=== PATIENT | male | born 1945 | race Caucasian/White ===

== ENCOUNTER 2016-03-25 11:25 | Day surgery (SDC) | payer MEDICARE ==
[2016-03-24 09:27] VITALS: BMI 31.8
[~2016-03-25 11:25] MED LIST: DEXAMETHASONE SOD PHOSPHATE 10 MG/ML 1 ML VIAL IV ONE; LIDOCAINE 1% 20 ML VIAL (10MG/ML) FOR IV START INTRADERMA PRN; MIDAZOLAM 2 MG/2 ML VIAL IV PRN; ONDANSETRON 4 MG/2 ML VIAL IVP ONE; SCOPOLAMINE 1.5MG/72HR PATCH TRANSDERM ONE
[2016-03-25] MEDS: PHENYLEPHRINE 10% OPHTH DROPS 5 ML BTL OP ONE ×3 (12:24→12:40)
[2016-03-25] MEDS ORDERED: LIDOCAINE 1% 20 ML VIAL (10MG/ML) FOR IV START INTRADERMA ONE (12:25)
[2016-03-25] MEDS: LACTATED RINGERS 1,000 ML IV ONE ×2 (12:25→12:50)
[2016-03-25] MEDS: CYCLOPENTOLATE 1% OPHTH SOLN 2 ML BTL OP ONE ×3 (12:27→12:42)
[2016-03-25] MEDS: FLURBIPROFEN 0.03% OPHTH DROPS 2.5 ML BTL OP ONE ×3 (12:29→12:44)
[2016-03-25 12:30] VITALS: TEMP 96.8
[2016-03-25 12:31] LABS: Glucose,Whole Blood 159 mg/dL (75-99)
[2016-03-25] MEDS ORDERED: PROPOFOL 10 MG/ML 20 ML VIAL IV ONE (12:53)
[2016-03-25] MEDS ORDERED: LIDOCAINE 1% INJ 10MG/ML (20 ML MDV) ONE (12:53)
[2016-03-25] MEDS ORDERED: BALANCED SALT IRRIG SOLN COMB2 15 ML IRRIG.SOLN INTRAOCULA ONE (13:00)
[2016-03-25] MEDS ORDERED: HYALURONATE SODIUM INTRAOCULAR 1 EACH SYRINGE (10MG/ML) INTRAOCULA ONE (13:01)
--- NOTE | 2016-03-25 13:14 | P.OP ---
Date of Procedure: 03/25/16 Procedure(s) Performed: PREOPERATIVE DIAGNOSIS: Cataract, right eye. POSTOPERATIVE DIAGNOSIS: Cataract, right eye. OPERATION: Phacoemulsification cataract, right eye. DESCRIPTION OF PROCEDURE: The patient was taken to the preoperative holding area. Intravenous Propofol was given so as to bring about adequate sedation. The following mixture was given for local anesthesia: 5 mL of 2% lidocaine, 5 mL of 0.75% Marcaine, and 1 mL of Wydase. Approximately 4 mL was injected in the retrobulbar space of the surgical eye. Additional 1 mL was then directed to the temporal area of the surgical eye. This was performed to allow adequate neurological block of the facial muscles. The patient was revived and then taken into the operative room. The patient was prepped and draped in the usual sterile manner for the operative eye. A lid speculum was put into position. The conjunctiva was resected back from the limbus in the 12 o'clock position. Bleeding was controlled with electrocautery. A #69 blade was then used and a half-thickness scleral incision approximately 1-mm posterior to the limbus was made on bare sclera. This was shelved in the clear cornea using a crescent knife. Next a 15-degree blade was used to make a stab incision at the 3 o' clock position at the corneolimbal interface. Keratome blade was then used and the superior wound was extended into the anterior chamber. Viscoelastic was injected into the anterior chamber and to maintain its form. Next, a cystotome was used and a continuous anterior capsulotomy was made without difficulty. Hydrodissection using a blunt cannula and BSS was performed. Phaco probe was then employed and a groove extending from 12 to 6 o'clock in the lens was created. A Armando wand was used through the stab incision so as to perform a divide and conquer technique. Next an irrigation aspiration probe was utilized and any residual cortex was removed from the eye. Again, viscoelastic was injected into the anterior chamber. An Ellis posterior chamber lens implant was placed in the cartridge and injected into the anterior chamber without difficulty. The SinArte Manifiestoey hook was utilized to spin the lens into position and this was again performed without any difficulty. The irrigation and aspiration probe was again employed and any residual viscoelastic was removed from the eye. Then BSS was injected into the limbal stab incision and the anterior chamber re-inflated. The conjunctiva was reapproximated using electrocautery. One drop of 0.25% Timoptic was placed over the corneal along with TobraDex ophthalmic ointment. Two sterile patches and a Valdez eye shield were taped into position. The patient was transported to the recovery room in stable condition. Pathology: none sent Condition: stable Disposition: same day
[2016-03-25 13:20] VITALS: BP 132/76; PULSE 72; RESP 16
[2016-03-25] MEDS ORDERED: GENTAMICIN/PREDNISOL AC OPHTH OINT 3.5GM OPHTHALMIC ONE (23:00)
[2016-03-25] MEDS ORDERED: BUPIVACAINE (PF) 0.75% 5 ML, LIDOCAINE 4% (PF) 5 ML, HYALURONIDASE, HUMAN RECOMB 150 UNIT MISCELLANE ONE ×3 (23:00)
[2016-03-25] MEDS ORDERED: TIMOLOL 0.5% OPHTH SOLN (PF) 0.2 ML DROPERETTE OP ONE (23:00)
== END 2016-03-25 13:50 | disposition home or self-care (01) ==
LOC: OR 11:25
PROVIDERS: ATTEND Ophthalmology
DX: H26.9 Unspecified cataract (principal); I10 Essential (primary) hypertension; E78.00 Pure hypercholesterolemia, unspecified; E11.9 Type 2 diabetes mellitus without complications; Z86.73 Personal history of transient ischemic attack (TIA), and cerebral infarction without residual deficits; Z79.899 Other long term (current) drug therapy; Z79.84 Long term (current) use of oral hypoglycemic drugs
CPT/HCPCS: 66984; V2632; J2001 ×2; J3470; J2704; 99152; 99153

== ENCOUNTER 2017-06-17 11:53 | Inpatient (IN) | payer MEDICARE ==
--- NOTE | 2017-06-17 12:32 | ED ---
General Adult HPI - General Chief complaint: Neuro Symptoms/Deficit Stated complaint: Dizziness/Slurred Speach Time Seen by Provider: 06/17/17 12:10 Source: patient, RN notes reviewed Mode of arrival: ambulatory Limitations: no limitations - History of Present Illness Initial comments: 72-year-old male presenting with slurred speech. Patient first noticed this on Thursday morning when he woke. This was 2 days prior to evaluation. He states that he had difficulty finding words and some left-sided facial weakness. No extremity weakness. He was urged by his daughter today to present to the emergency department. His symptoms have improved over the past 48 hours. Denies headache. Denies vision changes. Denies chest pain or shortness of breath. - Related Data Home Medications Medication Instructions Recorded Confirmed Potassium 99 mg PO DAILY 11/16/15 06/17/17 Zinc 15 mg PO DAILY 01/01/17 06/17/17 guaiFENesin-DM 600/30MG [Mucinex 1 tab PO Q12HR PRN 06/17/17 06/17/17 Dm] Allergies Allergy/AdvReac Type Severity Reaction Status Date / Time codeine Allergy Anaphylaxis Verified 06/17/17 12:22 diphenhydramine HCl Allergy MEMORY Verified 06/17/17 12:22 [From Benadryl] LOSS, RAPID HEART RATE, ELEVATED BLOOD PRESSURE iodine Allergy Unknown-YEARS Verified 06/17/17 12:22 AGO " morphine Allergy BURNING Verified 06/17/17 12:22 FEELING OF SKIN" tetracycline Allergy Hallucinations,rapid Verified 06/17/17 12:22 heart rate Review of Systems ROS Statement: Those systems with pertinent positive or pertinent negative responses have been documented in the HPI. ROS Other: All systems not noted in ROS Statement are negative. Past Medical History Past Medical History: Diabetes Mellitus, Hyperlipidemia, Hypertension, Osteoarthritis (OA), Pneumonia, Prostate Disorder Additional Past Medical History / Comment(s): bells palsy x 2, "HAS A WIRE IN HIS NOSE TO HELP KEEP AIR PASSAGE OPEN" ," CONTROLS HIS DIABETES WITH DIET" History of Any Multi-Drug Resistant Organisms: None Reported Past Surgical History: Appendectomy, Back Surgery, Joint Replacement, Orthopedic Surgery, Tonsillectomy Additional Past Surgical History / Comment(s): AMBUTATION OF SECOND TOE LEFT FOOT. jey knee replacements. sx to repair septum R/T CRUSHING INJURY and HAS "A WIRE IN HIS NOSE, THAT IF REMOVED HE CAN'T BREATHE", surgery on jey eye Past Anesthesia/Blood Transfusion Reactions: No Reported Reaction Additional Past Anesthesia/Blood Transfusion Reaction / Comment(s): "EXTREMELY CLAUSTROPHOBIC" Past Psychological History: No Psychological Hx Reported Smoking Status: Former smoker Past Alcohol Use History: Rare Past Drug Use History: None Reported - Past Family History Father Additional Family Medical History / Comment(s): heart problems lost his parents when he was 1 Mother History Unknown: Yes Daughter(s) Family Medical History: Cancer General Exam Limitations: no limitations General appearance: alert, in no apparent distress Head exam: Present: atraumatic, normocephalic Eye exam: Present: normal appearance, EOMI. Absent: PERRL ((O3 millimeters, right pupil 2 mm, both are reactive, patient has had cataract surgery in both eyes) Neck exam: Present: normal inspection. Absent: tenderness, meningismus Respiratory exam: Present: normal lung sounds bilaterally. Absent: respiratory distress Cardiovascular Exam: Present: regular rate, normal rhythm, systolic murmur GI/Abdominal exam: Present: soft. Absent: distended, tenderness, guarding Extremities exam: Present: normal inspection, normal capillary refill. Absent: pedal edema Back exam: Present: normal inspection. Absent: full ROM, tenderness Neurological exam: Present: alert, oriented X3, motor sensory deficit (Mild left -sided facial droop, dysarthria, NIH of 2) Psychiatric exam: Present: normal affect, normal mood Skin exam: Present: warm, dry, intact. Absent: cyanosis, diaphoretic Course Vital Signs 06/17/17 06/17/17 06/17/17 12:03 13:09 14:40 Temperature 97.2 F L Pulse Rate 73 72 69 Respiratory 16 16 16 Rate Blood Pressure 192/91 183/95 182/88 O2 Sat by Pulse 97 92 L 96 Oximetry EKG Findings - EKG Comments: EKG Findings:: EKG, sinus rhythm with occasional PVC, left axis, ventricular rate of 73, MT interval 138, QRS duration 108, QTC 458, no definitive signs of ischemia Medical Decision Making - Medical Decision Making 73-year-old male presenting with 48 hours of dysarthria. Patient is not a TPA candidate given the low NIH and time of presentation. CBC CMP and chest x-ray are all reviewed and within normal limits. CT of the brain does show a medial right basal ganglia low attenuation consistent with infarction. This is new compared to previous imaging. Patient is given aspirin emergency Department he will be admitted for further stroke evaluation. - Lab Data Result diagrams: 06/17/17 13:20 06/17/17 13:20 Lab Results 06/17/17 06/17/17 06/17/17 Range/Units 13:20 13:20 13:20 WBC 8.6 (3.8-10.6) k/uL RBC 5.51 (4.30-5.90) m/uL Hgb 15.8 (13.0-17.5) gm/dL Hct 45.9 (39.0-53.0) % MCV 83.3 (80.0-100.0) fL MCH 28.6 (25.0-35.0) pg MCHC 34.4 (31.0-37.0) g/dL RDW 12.8 (11.5-15.5) % Plt Count 236 (150-450) k/uL Neutrophils % 76 % Lymphocytes % 18 % Monocytes % 4 % Eosinophils % 0 % Basophils % 0 % Neutrophils # 6.5 (1.3-7.7) k/uL Lymphocytes # 1.6 (1.0-4.8) k/uL Monocytes # 0.4 (0-1.0) k/uL Eosinophils # 0.0 (0-0.7) k/uL Basophils # 0.0 (0-0.2) k/uL PT (9.0-12.0) sec INR (<1.2) APTT (22.0-30.0) sec Sodium 135 L (137-145) mmol/L Potassium 4.6 (3.5-5.1) mmol/L Chloride 94 L (98-107) mmol/L Carbon Dioxide 27 (22-30) mmol/L Anion Gap 14 mmol/L BUN 18 (9-20) mg/dL Creatinine 0.86 (0.66-1.25) mg/dL Est GFR (CKD-EPI)AfAm >90 (>60 ml/min/1.73 sqM) Est GFR (CKD-EPI)NonAf 86 (>60 ml/min/1.73 sqM) Glucose 248 H (74-99) mg/dL Calcium 9.5 (8.4-10.2) mg/dL Total Bilirubin 0.6 (0.2-1.3) mg/dL AST 22 (17-59) U/L ALT 25 (21-72) U/L Alkaline Phosphatase 113 (38-126) U/L Total Creatine Kinase 102 (55-170) U/L CK-MB (CK-2) 2.1 (0.0-2.4) ng/mL CK-MB (CK-2) Rel Index 2.1 Troponin I <0.012 (0.000-0.034) ng/mL Total Protein 7.1 (6.3-8.2) g/dL Albumin 4.1 (3.5-5.0) g/dL 06/17/17 Range/Units 13:20 WBC (3.8-10.6) k/uL RBC (4.30-5.90) m/uL Hgb (13.0-17.5) gm/dL Hct (39.0-53.0) % MCV (80.0-100.0) fL MCH (25.0-35.0) pg MCHC (31.0-37.0) g/dL RDW (11.5-15.5) % Plt Count (150-450) k/uL Neutrophils % % Lymphocytes % % Monocytes % % Eosinophils % % Basophils % % Neutrophils # (1.3-7.7) k/uL Lymphocytes # (1.0-4.8) k/uL Monocytes # (0-1.0) k/uL Eosinophils # (0-0.7) k/uL Basophils # (0-0.2) k/uL PT 10.4 (9.0-12.0) sec INR 1.1 (<1.2) APTT 25.0 (22.0-30.0) sec Sodium (137-145) mmol/L Potassium (3.5-5.1) mmol/L Chloride (98-107) mmol/L Carbon Dioxide (22-30) mmol/L Anion Gap mmol/L BUN (9-20) mg/dL Creatinine (0.66-1.25) mg/dL Est GFR (CKD-EPI)AfAm (>60 ml/min/1.73 sqM) Est GFR (CKD-EPI)NonAf (>60 ml/min/1.73 sqM) Glucose (74-99) mg/dL Calcium (8.4-10.2) mg/dL Total Bilirubin (0.2-1.3) mg/dL AST (17-59) U/L ALT (21-72) U/L Alkaline Phosphatase (38-126) U/L Total Creatine Kinase (55-170) U/L CK-MB (CK-2) (0.0-2.4) ng/mL CK-MB (CK-2) Rel Index Troponin I (0.000-0.034) ng/mL Total Protein (6.3-8.2) g/dL Albumin (3.5-5.0) g/dL Critical Care Time Critical Care Time: Yes Total Critical Care Time: 35 Disposition Clinical Impression: CVA (cerebral vascular accident) Disposition: ADMITTED IP TO THIS [facility] Condition: Stable Referrals: Mark Aguillon MD [Primary Care Provider] - 1-2 days Decision to Admit Reason: Admit from EC Decision Date: 06/17/17 Decision Time: 15:20
[2017-06-17 13:36] LABS: Basophils % (A) 0 %; Eosinophils % (A) 0 %; HCT 45.9 % (39.0-53.0); HGB 15.8 gm/dL (13.0-17.5); Lymphocytes # (A) 1.6 k/uL (1.0-4.8); Lymphocytes % (A) 18 %; MCH 28.6 pg (25.0-35.0); MCHC 34.4 g/dL (31.0-37.0); MCV 83.3 fL (80.0-100.0); Mean Platelet Volume 6.8; Monocytes # (A) 0.4 k/uL (0-1.0); Monocytes % (A) 4 %; Neutrophils # (A) 6.5 k/uL (1.3-7.7); Neutrophils % (A) 76 %; Platelet Count 236 k/uL (150-450); RBC 5.51 m/uL (4.30-5.90); RDW 12.8 % (11.5-15.5); WBC 8.6 k/uL (3.8-10.6)
[2017-06-17 13:47] LABS: INR 1.1 (<1.2); Prothrombin Time 10.4 sec (9.0-12.0)
[2017-06-17 13:53] LABS: ALT 25 U/L (21-72); AST 22 U/L (17-59); Albumin 4.1 g/dL (3.5-5.0); Alkaline Phosphatase 113 U/L (38-126); Anion Gap 14 mmol/L; Blood Urea Nitrogen 18 mg/dL (9-20); Calcium 9.5 mg/dL (8.4-10.2); Carbon Dioxide 27 mmol/L (22-30); Chloride 94 mmol/L (98-107); Glucose 248 mg/dL (74-99); Potassium 4.6 mmol/L (3.5-5.1); Sodium 135 mmol/L (137-145); Total Bilirubin 0.6 mg/dL (0.2-1.3); Total Protein 7.1 g/dL (6.3-8.2)
[2017-06-17 13:57] LABS: Creatine Kinase 102 U/L (55-170)
[2017-06-17 14:09] LABS: Creatine Kinase MB 2.1 ng/mL (0.0-2.4); Troponin I <0.012 ng/mL (0.000-0.034)
--- NOTE | 2017-06-17 14:37 | CT ---
EXAMINATION TYPE: CT brain wo con DATE OF EXAM: 06/17/2017 HISTORY: Dizziness and slurred speech. CT DLP: 1204 mGycm. Automated Exposure Control for Dose Reduction was Utilized. TECHNIQUE: CT scan of the head is performed without contrast. COMPARISON: CT brain November 16, 2015. MRI brain November 19, 2015. FINDINGS: There is no acute intracranial hemorrhage or midline shift identified. There is diffuse v entricular and sulcal prominence consistent with diffuse age-related cerebral atrophy. There is low- attenuation in the periventricular white matter consistent with chronic small vessel ischemic change. New vague area of low-attenuation right medial basal ganglia near axial image 25 and coronal image 37 favors interval infarct, acute ischemia felt less likely. The globes are intact and the visualized sinuses are clear. IMPRESSION: No acute intracranial hemorrhage or midline shift. There is moderate diffuse age-relate d cerebral atrophy and chronic small vessel ischemic change redemonstrated. Nonspecific medial right basal ganglia new area of low-attenuation consistent with age indeterminate infarct favored old but n ew from prior CT and MRI. If clinical concern for acute stroke persists further investigation with MRI study may be warranted
--- NOTE | 2017-06-17 14:44 | XR ---
EXAMINATION TYPE: XR chest 2V DATE OF EXAM: 06/17/2017 COMPARISON: Prior chest x-ray 11/16/2015 HISTORY: Altered mental status, dizziness and slurred speech TECHNIQUE: Frontal and lateral views of the chest are obtained. FINDINGS: There is no focal air space opacity, pleural effusion, or pneumothorax seen. The cardiac silhouette size is within normal limits. There is persistent elevation of the right hemidiaphragm, th ere are overlying cardiac leads. Arthropathy noted in the shoulders. The osseous structures are int act. IMPRESSION: No acute cardiopulmonary process.
[2017-06-17] MEDS ORDERED: ASPIRIN 325 MG TAB PO STA (15:16)
[2017-06-17] MEDS: SODIUM CHLORIDE 0.9% 1,000 ML IV SCH (15:50)
[2017-06-17 16:56] LABS: Glucose,Whole Blood 206 mg/dL (75-99)
--- NOTE | 2017-06-17 17:40 | P.HPIM ---
History of Present Illness 72-year-old male came in with comments of slurred speech has been going on for 2 days patient appears to have had posterior basil ganglia stroke in the past. Patient denied any weakness except for generalized weakness. Patient appears to have multiple other medical problems including hypertension and diabetes mellitus previous strokes but patient doesn't take any may and medications except for magnesium. Patient appears to have benign prostatic hypertrophy as well with urinary retention probably a bladder scan. Patient denied any seizure -like activity. CT of the head was done which showed basal ganglia stroke which appears to be the previous one appears to have had in 2016. Patient's and neurology of slurred speech cannot be explained from the basal ganglia stroke. Patient may have had another stroke. Patient was started on aspirin statin lipid panel will be obtained echocardiogram will be obtain carotid Doppler will be obtained. Patient does not have any tingling or numbness R any focal weakness at this time. Patient appears to have a lot of misconceptions regarding diabetic medications and the diabetic diet patient is diabetic diet was stopped because patient's memory was bad and he believed that his medications are making his memory go down because of that reason patient discontinued diabetic medications including other medications patient was hypotensive as well. Patient passes out after he eats sweets as per the family member. Patient believes diabetic diet is making him hypoglycemic loose memory. But there is no evidence of that as he never checked his blood sugars and never documented any hypoglycemia. Review of Systems REVIEW OF SYSTEMS: CONSTITUTIONAL: No fever, no malaise, no fatigue. HEENT: No recent visual problems or hearing problems. Denied any sore throat. CARDIOVASCULAR: No chest pain, orthopnea, PND, no palpitations, no syncope. PULMONARY: No shortness of breath, no cough, no hemoptysis. GASTROINTESTINAL: No diarrhea, no nausea, no vomiting, no abdominal pain. Normoactive bowel sounds. NEUROLOGICAL: As mentioned in HPI HEMATOLOGICAL: Denies any bleeding or petechiae. GENITOURINARY: Denies any burning micturition, frequency, or urgency. MUSCULOSKELETAL/RHEUMATOLOGICAL: Denies any joint pain, swelling, or any muscle pain. ENDOCRINE: Denies any polyuria or polydipsia. The rest of the 14-point review of systems is negative. Past Medical History Past Medical History: Hyperlipidemia, Hypertension, Osteoarthritis (OA), Pneumonia, Prostate Disorder Additional Past Medical History / Comment(s): pt is a adventist-no blood transfusions. bells palsy x 2, "HAS A removeable WIRE clipIN HIS NOSE TO HELP KEEP AIR PASSAGE OPEN-pt stated do not remove" ,pt stated not diabetic has hypoglycemia, diverticlosis,murmu as child,scalette fever as child History of Any Multi-Drug Resistant Organisms: None Reported Past Surgical History: Appendectomy, Back Surgery, Joint Replacement, Orthopedic Surgery, Tonsillectomy Additional Past Surgical History / Comment(s): AMBUTATION OF SECOND TOE LEFT FOOT. jey knee replacements. 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" Smoking Status: Former smoker - Past Family History Father Additional Family Medical History / Comment(s): heart problems Mother History Unknown: Yes Daughter(s) Family Medical History: Cancer Medications and Allergies Home Medications Medication Instructions Recorded Confirmed Type Potassium 99 mg PO DAILY 11/16/15 06/17/17 History Zinc 15 mg PO DAILY 01/01/17 06/17/17 History guaiFENesin-DM 600/30MG [Mucinex 1 tab PO Q12HR PRN 06/17/17 06/17/17 History Dm] Allergies Allergy/AdvReac Type Severity Reaction Status Date / Time codeine Allergy Anaphylaxis Verified 06/17/17 12:22 diphenhydramine HCl Allergy MEMORY Verified 06/17/17 12:22 [From Benadryl] LOSS, RAPID HEART RATE, ELEVATED BLOOD PRESSURE iodine Allergy Unknown-YEARS Verified 06/17/17 12:22 AGO " morphine Allergy BURNING Verified 06/17/17 12:22 FEELING OF SKIN" tetracycline Allergy Hallucinations,rapid Verified 06/17/17 12:22 heart rate Physical Exam Vitals: Vital Signs Temp Pulse Pulse Resp BP BP Pulse Ox 06/17/17 17:09 97.8 F 66 18 168/88 96 06/17/17 15:50 70 16 186/92 96 06/17/17 14:40 69 16 182/88 96 06/17/17 14:00 68 16 166/90 92 L 06/17/17 13:09 72 16 183/95 92 L 06/17/17 12:03 97.2 F L 73 16 192/91 97 Intake and Output 06/17/17 06/17/17 06/17/17 06:59 14:59 22:59 Other: Voiding Method Urinal Weight 97.522 kg PHYSICAL EXAMINATION: GENERAL: The patient is alert and oriented x3, not in any acute distress. Well developed, well nourished. HEENT: Pupils are round and equally reacting to light. EOMI. No scleral icterus. No conjunctival pallor. Normocephalic, atraumatic. No pharyngeal erythema. No thyromegaly. CARDIOVASCULAR: S1 and S2 present. No murmurs, rubs, or gallops. PULMONARY: Chest is clear to auscultation, no wheezing or crackles. ABDOMEN: Soft, nontender, nondistended, normoactive bowel sounds. No palpable organomegaly. MUSCULOSKELETAL: No joint swelling or deformity. EXTREMITIES: No cyanosis, clubbing, or pedal edema. NEUROLOGICAL: Gross neurological examination did not reveal any focal deficits. Patient does have slurred speech SKIN: No rashes. Results CBC & Chem 7: 06/17/17 13:20 06/17/17 13:20 Labs: Abnormal Lab Results - Last 24 Hours (Table) 06/17/17 06/17/17 Range/Units 13:20 16:54 Sodium 135 L (137-145) mmol/L Chloride 94 L (98-107) mmol/L Glucose 248 H (74-99) mg/dL POC Glucose (mg/dL) 206 H (75-99) mg/dL Assessment and Plan Plan: -Possible cerebral vascular accident: Involving left cerebral hemisphere probably thromboembolic in nature. Will do stroke workup as mentioned above patient was started on aspirin and a statin LDL will be obtained a cold carotid Doppler will be obtained CT did show basal ganglia stroke which is probably old doesn't explain the symptoms of slurred speech. Speech therapy and physical therapy occupational therapy will be consulted. -Type 2 diabetes mellitus patient the start taking all his medications because his blood sugars are not that bad now he will obtain hemoglobin A1c probably start with diabetic diet diabetic education there will be consulted because of misconceptions that family and patient has regarding the diabetic diet. -Hypertension not been using any medications will hold off any medications at this point of time need to be restarted on medications depending on his blood pressure eventually -Hyperlipidemia -Benign prostatic hypertrophy patient will be started on tamsulosin
[2017-06-17] MEDS ORDERED: TAMSULOSIN 0.4 MG CAP.ER.24H PO SCH (18:30)
--- NOTE | 2017-06-17 18:55 | US ---
EXAMINATION TYPE: US carotid duplex BILAT DATE OF EXAM: 06/17/2017 COMPARISON: 11/17/2015 CLINICAL HISTORY: Stenosis. Slurred speech and syncope EXAM MEASUREMENTS: RIGHT: Peak Systolic Velocity (PSV) cm/sec ----- Right CCA: 58.0 ----- Right ICA: 68.2 ----- Right ECA: 98.7 ICA/CCA ratio: 1.2 RIGHT: End Diastole cm/sec ----- Right CCA: 10.0 ----- Right ICA: 17.3 ----- Right ECA: 0 LEFT: Peak Systolic Velocity (PSV) cm/sec ----- Left CCA: 79.2 ----- Left ICA: 76.6 ----- Left ECA: 95.1 ICA/CCA ratio: 1.0 LEFT: End Diastole cm/sec ----- Left CCA: 14.4 ----- Left ICA: 21.0 ----- Left ECA: 0 VERTEBRALS (direction of flow): Right Vertebral: Antegrade Left Vertebral: Antegrade Rhythm: Normal Bilateral plaque in bulbs. No significant stenosis seen IMPRESSION: There is antegrade flow in the vertebral arteries. The images in measurements suggest 0- 50% stenosis in both internal carotid arteries and closer to 25% based on the images. No adverse mayfield ge compared to old exam. Criteria for Assigning % of Stenosis / Diameter reduction (Estimation based on the indirect measurements of the internal carotid artery velocities (ICA PSV). 1. Normal (no stenosis)=ICA PSV < 125 cm/s: ratio < 2.0: ICA EDV<40 cm/s. 2. Less than 50% stenosis=ICA PSV < 125 cm/s: ratio < 2.0: ICA EDV<40 cm/s. 3. 50 to 69% stenosis=ICA PSV of 125 to 230 cm/s: ration 2.0 ? 4.0: ICA EDV 40-100 cm/s. 4. Greater than 70% stenosis to near occlusion= ICA PSV > 230 cm/s: ratio > 4.0: ICA EDV > 100 cm/s. 5. Near occlusion= ICA PSV velocities may be low or undetectable: variable ratio and ICA EDV. 6. Total occlusion=unable to detect flow.
[2017-06-17 21:00] LABS: Glucose,Whole Blood 239 mg/dL (75-99)
[2017-06-17] MEDS ORDERED: ATORVASTATIN 40 MG TAB PO SCH (21:00)
[2017-06-18] MEDS: SODIUM CHLORIDE 0.9% 1,000 ML IV SCH ×2 (00:30→14:09)
[2017-06-18 03:03] LABS: Hemoglobin A1C 10.1 % (4.0-6.0)
[2017-06-18 04:44] VITALS: RESP 16
[2017-06-18 06:00] LABS: Glucose,Whole Blood 218 mg/dL (75-99)
[2017-06-18 06:04] LABS: Cholesterol 228 mg/dL (<200); HDL Cholesterol 40 mg/dL (40-60); LDL Cholesterol,Calculated 141 mg/dL (0-99); Triglycerides 233 mg/dL (<150)
--- NOTE | 2017-06-18 06:09 | CONS ---
CONSULTATION DATE OF CONSULTATION: 06/17/2017. CHIEF COMPLAINT: Stroke. HISTORY OF PRESENT ILLNESS: The patient is a pleasant 72-year-old, male, who is being evaluated by the neurology service per the request of Dr. Garza for a stroke. The patient was brought into [facility] Emergency Room with complaints of slurred speech. His family also noticed that he was having facial drooping on the left side. The patient states that his slurred speech began Thursday morning but he did not seek any medical attention because he thought it was a medication side effect. He had been taking some Mucinex for a cough. He denies having any weakness or numbness in his extremities. He does report that over the past couple of days, his balance has not been as good as it used to be when he is walking. A CT scan of the brain was done in the emergency room, which showed hypoattenuation involving the right basal ganglia. This hypoattenuation was age undetermined but it was new when compared to his 2016 CT scan of the brain. The patient was not on any aspirin at home. His carotid Doppler showed no hemodynamically significant stenosis. His CBC, INR, and cardiac enzymes were normal. His comprehensive metabolic profile was normal except for hyperglycemia at 248. At the time of my evaluation, he denies any changes in the intensity of his symptoms. He denies any dysphagia. PAST MEDICAL HISTORY: Dyslipidemia, hypertension, arthritis, benign prostatic hypertrophy, history of appendectomy, spine surgery, joint replacement surgery, tonsillectomy, cataract surgery. SOCIAL HISTORY: The patient is a former smoker. He rarely drinks alcohol. He denied any drug use. FAMILY HISTORY: Positive for heart disease and cancer. HOME MEDICATIONS: Reviewed in the chart. ALLERGIES: CODEINE, BENADRYL, IODINE, MORPHINE, TETRACYCLINE. REVIEW OF SYSTEM: CONSTITUTIONAL: Negative. EYES: Negative. ENT: Negative. CARDIOVASCULAR: Negative. RESPIRATORY: Negative. NEUROLOGICAL: As mentioned above. GASTROINTESTINAL: Negative. GENITOURINARY: Positive for urinary retention due to benign prostatic hypertrophy. PSYCHIATRIC: Negative. ENDOCRINE: Positive for diabetes. DERMATOLOGICAL: Negative. MUSCULOSKELETAL: Positive for occasional joint pain and low back pain. PHYSICAL EXAM: Vital signs show a temperature of 97.8, pulse 68, respirations 16, blood pressure 164/86. GENERAL APPEARANCE: The patient is a well-developed, elderly male, who appears to be in no acute distress. HEENT: Normocephalic, atraumatic. Minimal left facial drooping is seen. Extraocular muscles are intact. Neck is supple with no masses felt. CARDIOVASCULAR: Regular rate and rhythm. ABDOMEN: Nontender, nondistended. Extremities showed no edema or clubbing. NEUROLOGICAL EXAM: The patient is alert, aware and oriented x3. Speech is slightly dysarthric. Language testing is normal. Strength is full in all 4 extremities. No pronator drift is seen. Sensory exam was normal to light touch in all 4 extremities. Cranial nerve testing showed minimal left facial drooping. IMPRESSION: 1. Acute ischemic stroke. 2. Dysarthria. 3. Mild left facial droop. 4. Uncontrolled hypertension. 5. Diabetes. RECOMMENDATION: The patient does appear to have suffered an acute ischemic stroke. His CT scan of the brain did show hypoattenuation of undetermined age. I will order an MRI of the brain with and without contrast. The patient is claustrophobic and I will pretreat him with Ativan. He has been started on aspirin 325 mg daily. He denies any dysphagia. I will order a fasting lipid panel, EEG, and serum homocysteine level. The patient is also being worked up for possible diabetes. A hemoglobin A1c is pending. I do recommend medication for his elevated blood pressure as it was significantly elevated on arrival and continues to be somewhat elevated at this time with the last blood pressure reading of 164/86. Speech Therapy will be consulted. Continue the rest of your current workup and management. I will continue to follow with you. Further recommendations to follow. Thank you for allowing me to participate in the care of your patient. If you have any questions, please feel free to contact me. MMKIRBYL / IJN: [id number] /
[2017-06-18] MEDS ORDERED: ASPIRIN 325 MG TAB PO SCH (09:00)
--- NOTE | 2017-06-18 10:58 | ECHOF ---
Referral Reason:Thrombus MEASUREMENTS -------- HEIGHT: 175.3 cm WEIGHT: 97.1 kg BP: 182/88 IVSd: 1.4 cm (0.6 - 1.1) LVIDd: 3.7 cm (3.9 - 5.3) LVPWd: 1.6 cm (0.6 - 1.1) IVSs: 1.9 cm LVIDs: 3.2 cm LVPWs: 1.8 cm Ao Diam: 3.8 cm (2.0 - 3.7) AV Cusp: 2.3 cm (1.5 - 2.6) LA Diam: 3.4 cm (2.7 - 3.8) MV EXCURSION: 18.221 mm (> 18.000) MV EF SLOPE: 52 mm/s (70 - 150) EPSS: 1.2 cm MV E Chito: 0.60 m/s MV DecT: 211 ms MV A Chito: 0.73 m/s MV E/A Ratio: 0.83 RAP: 5.00 mmHg RVSP: 8.03 mmHg FINDINGS -------- Undetermined rhythm. This was a technically difficult study with suboptimal views. The left ventricular size is normal. There is moderate concentric left ventricular hypertrophy. O verall left ventricular systolic function is mildly impaired with, an EF between 45 - 50 %. ANTEROS EPTAL HYPOKINESIS The right ventricle is normal in size and function. The left atrium is normal in size. The right atrium is normal in size. Lumason used Aortic valve is trileaflet and is mildly thickened. The mitral valve leaflets are mildly thickened. Mild mitral annular calcification present. Mild m itral regurgitation is present. Mild tricuspid regurgitation present. The right ventricular systolic pressure, as measured by Doppl er, is 8.03mmHg. Pulmonic valve appears structurally normal. The aortic root is mildy dilated measuring 3.8 cm. Normal inferior vena cava with normal inspiratory collapse consistent with estimated right atrial pre ssure of 5 mmHg. The pericardium is normal. CONCLUSIONS -------- 1. Undetermined rhythm. 2. This was a technically difficult study with suboptimal views. 3. The left ventricular size is normal. 4. There is moderate concentric left ventricular hypertrophy. 5. Overall left ventricular systolic function is mildly impaired with, an EF between 45 - 50 %. 6. Mid to basal inferiorlateral is hypokinetic 7. The right ventricle is normal in size and function. 8. The left atrium is normal in size. 9. The right atrium is normal in size. 10. Lumason used 11. Aortic valve is trileaflet and is mildly thickened. 12. The mitral valve leaflets are mildly thickened. 13. Mild mitral annular calcification present. 14. Mild mitral regurgitation is present. 15. Mild tricuspid regurgitation present. 16. The right ventricular systolic pressure, as measured by Doppler, is 8.03mmHg. 17. Pulmonic valve appears structurally normal. 18. The aortic root is mildy dilated measuring 3.8 cm. 19. Normal inferior vena cava with normal inspiratory collapse consistent with estimated right atrial pressure of 5 mmHg. 20. The pericardium is normal. SENIOR MEDIA PLANNER: Ngozi Guillermo RDCS
[2017-06-18 11:30] LABS: Glucose,Whole Blood 283 mg/dL (75-99)
[2017-06-18] MEDS: LORazepam 2 MG/ML INJ IV STA ×2 (12:40→14:05)
--- NOTE | 2017-06-18 13:38 | P.DS ---
Providers Date of admission: 06/17/17 15:16 Attending physician: Luz Marina Garza Consults: 06/17/17 15:17 Consult Physician Routine Consulting Provider: Tristen Lebron Consult Reason/Comments: CVA Do you want consulting provider notified?: Yes Primary care physician: Pal Espinoza [facility] Course: 72-year-old admitted with speech problems found to have stroke patient does have posterior basal ganglia stroke in the past. Patient stopped taking all his medications patient is diabetic and hypertensive as well patient will be resumed on all his medications senior health educator will educate the patient patient's hemoglobin A1c is about 10 patient will be started on Januvia patient may need an additional medication patient in the past to quit taking metformin because of the diarrhea. Awaiting MRI all the rest of the workup including echocardiogram and carotid Doppler was done no significant abnormality was appreciated on any of these extensive counseling was provided regarding importance of taking these medications and patient doesn't have any physical therapy occupational therapy and speech therapy requirements at this time. Patient will be discharged today after the MRI. Will follow-up with the neurology as well as PCP closely. Patient's ejection fraction was 45-50% without any heart failure exacerbation patient is being discharged on lisinopril. This medication is helpful for both diabetic nephropathy as well as heart failure chronic systolic dysfunction not in acute exacerbation hopefully his ejection fraction will improve down the line. PHYSICAL EXAMINATION: GENERAL: The patient is alert and oriented x3, not in any acute distress. Well developed, well nourished. HEENT: Pupils are round and equally reacting to light. EOMI. No scleral icterus. No conjunctival pallor. Normocephalic, atraumatic. No pharyngeal erythema. No thyromegaly. CARDIOVASCULAR: S1 and S2 present. No murmurs, rubs, or gallops. PULMONARY: Chest is clear to auscultation, no wheezing or crackles. ABDOMEN: Soft, nontender, nondistended, normoactive bowel sounds. No palpable organomegaly. MUSCULOSKELETAL: No joint swelling or deformity. EXTREMITIES: No cyanosis, clubbing, or pedal edema. NEUROLOGICAL: Gross neurological examination did not reveal any focal deficits. SKIN: No rashes. Assessment and Plan Plan: -Possible cerebral vascular accident: Involving left cerebral hemisphere probably thromboembolic in nature. . -Type 2 diabetes mellitus -Hypertension -Hyperlipidemia -Benign prostatic hypertrophy patient will be started on tamsulosin Patient Condition at Discharge: Stable Plan - Discharge Summary Discharge Rx Participant: No New Discharge Prescriptions: New Aspirin 81 mg PO DAILY #30 chewable Atorvastatin [Lipitor] 40 mg PO HS #30 tab Lisinopril [Prinivil] 10 mg PO DAILY #30 tab sitaGLIPtin PHOSPHATE [Januvia] 50 mg PO DAILY #30 tab Tamsulosin [Flomax] 0.4 mg PO PC-SUPPER #30 cap.er.24h No Action Potassium 99 mg PO DAILY Zinc 15 mg PO DAILY guaiFENesin-DM 600/30MG [Mucinex Dm] 1 tab PO Q12HR PRN PRN Reason: Cough Discharge Medication List Potassium 99 mg PO DAILY 11/16/15 [History] Zinc 15 mg PO DAILY 01/01/17 [History] guaiFENesin-DM 600/30MG [Mucinex Dm] 1 tab PO Q12HR PRN 06/17/17 [History] Aspirin 81 mg PO DAILY #30 chewable 06/18/17 [Rx] Atorvastatin [Lipitor] 40 mg PO HS #30 tab 06/18/17 [Rx] Lisinopril [Prinivil] 10 mg PO DAILY #30 tab 06/18/17 [Rx] Tamsulosin [Flomax] 0.4 mg PO PC-SUPPER #30 cap.er.24h 06/18/17 [Rx] sitaGLIPtin PHOSPHATE [Januvia] 50 mg PO DAILY #30 tab 06/18/17 [Rx] Follow up Appointment(s)/Referral(s): Mark Aguillon MD [Primary Care Provider] - 06/23/17 9:20 am (Thursday) Tristen Lebron MD [STAFF PHYSICIAN] - 2 Weeks (Spoke to studio receptionist. Office will call with appointment time.) Patient Instructions/Handouts: Ischemic Stroke (DC) Discharge Disposition: HOME SELF-CARE
[2017-06-18] MEDS ORDERED: LORazepam 2 MG/ML INJ ONE (14:02)
[2017-06-18 14:09] VITALS: BMI 31.7
--- NOTE | 2017-06-18 15:35 | MR ---
EXAMINATION TYPE: MR brain wo/w con DATE OF EXAM: 06/18/2017 COMPARISON: CT brain 06/17/2017 and MRI 11/19/2015. HISTORY: 72-year-old male with dizziness and slurred speech, neurologic deficits, possible CVA TECHNIQUE: Multiplanar, multisequence images of the brain and brainstem were acquired before and aft er administration of 9.5 mL IV Gadavist. Diffusion weighted imaging is performed. Fast brain protoc ol was utilized since the patient was having difficulty breathing FINDINGS: There is a 1.2 cm focus of restricted diffusion along the right posterior basal ganglia/posterior whitfield b internal capsule. No other areas of restricted diffusion seen. This area shows corresponding increa sed T2/FLAIR weighted signal but without abnormal enhancement. No evidence for acute hemorrhage, mass, mass effect, midline shift, herniation, effacement of basal c isterns, or extra-axial fluid collection. There is moderate generalized supratentorial volume loss. No hydrocephalus. Major intracranial flow voids are intact. T2/FLAIR weighted sequences show moderate patchy white matter changes in both cerebral hemispheres, s lightly increased from 11/19/2015. Midline structures demonstrate normal morphology. The craniocervical junction is normal. Post contrast images demonstrate no evidence of pathologic enhancement. Dural venous sinuses are pat ent. Trace mucosal thickening ethmoid air cells and maxillary sinuses. Globes are intact. IMPRESSION: 1. A 1.2 cm focus of acute infarct within the posterior aspect of the right basal ganglia/posterior l imb right internal capsule greater than 6 hours in duration. 2. Moderate atrophy and changes of chronic small vessel ischemic disease. This shows slight interval progression from 11/19/2015.
--- NOTE | 2017-06-18 16:10 | P.PN ---
Subjective Progress Note Date: 06/18/17 Patient is a pleasant 72-year-old male who is being followed by the neurology service for stroke. Family noticed patient had episode of slurred speech with left-sided facial droop. Patient was brought to [facility] for further evaluation. Computed tomography scan of the brain was done in the emergency room which showed hypoattenuation involving the right basal ganglia. This hypoattenuation with age undetermined. Patient underwent MRI which did show 1.2 cm focus of acute infarct within the posterior aspect of the right basal ganglia/posterior limb right internal capsule. Patient was started on aspirin. His carotid Doppler showed no hemodynamically significant stenosis. At the time of my evaluation, patient's resting comfortably in bed and appears to be in no acute distress. Objective - Vital Signs Vital signs: Vital Signs Temp 97.7 F 06/18/17 12:16 Pulse 78 06/18/17 12:16 Resp 16 06/18/17 12:16 BP 157/65 06/18/17 12:16 Pulse Ox 95 06/18/17 12:16 Intake & Output 06/17/17 06/18/17 06/18/17 18:59 06:59 18:59 Intake Total 240 240 Balance 240 240 Weight 97.522 kg 97.4 kg 97.4 kg Intake: Oral 240 240 Other: Voiding Method Urinal Urinal Toilet # Voids 1 1 # Bowel Movements 1 - Exam PHYSICAL EXAM: GENERAL APPEARANCE: Patient is a well-developed, male who appears to be in no acute distress. HEENT: Normocephalic, atraumatic, no facial asymmetry is seen. Neck is supple with no masses felt. CARDIOVASCULAR: Regular rate and rhythm. ABDOMEN: Nontender, nondistended. EXTREMITIES: Show no edema or clubbing. NEUROLOGICAL EXAM: Patient is awake, alert, and oriented 3. Speech and language are normal. Strength is full in all 4 extremities. Sensory exam to light touch is normal in all 4 extremities. No facial asymmetry is seen on cranial nerve testing. No seizures or tremors noted. - Labs CBC & Chem 7: 06/17/17 13:20 06/17/17 13:20 Labs: Abnormal Lab Results - Last 24 Hours (Table) 06/17/17 06/17/17 06/17/17 Range/Units 13:20 16:54 20:59 POC Glucose (mg/dL) 206 H 239 H (75-99) mg/dL Hemoglobin A1c 10.1 H (4.0-6.0) % Triglycerides (<150) mg/dL Cholesterol (<200) mg/dL LDL Cholesterol, Calc (0-99) mg/dL 06/18/17 06/18/17 06/18/17 Range/Units 05:36 05:59 11:29 POC Glucose (mg/dL) 218 H 283 H (75-99) mg/dL Hemoglobin A1c (4.0-6.0) % Triglycerides 233 H (<150) mg/dL Cholesterol 228 H (<200) mg/dL LDL Cholesterol, Calc 141 H (0-99) mg/dL Assessment and Plan Plan: Impression: 1. Acute ischemic stroke 2. Dysarthria, resolved 3. Mild left facial droop, resolved 4. Hypertension 5. Diabetes Recommendation: Patient did suffer an acute ischemic stroke. MRI showed acute infarct within posterior aspect of the right basal ganglia/posterior limb right internal capsule. I recommend continuing aspirin 325 mg daily. Lipid panel is elevated and I recommend increasing his Lipitor. Homocystine level was within normal limits. EEG was done and results are pending. I do recommend adjusting his medication for elevated blood pressure as it continues to be elevated. Continue further workup as outpatient for diabetes as his hemoglobin A1c is 10.1. Patient is stable from a neurological standpoint for discharge. He is to follow up in the office in 2 weeks. I will continue to follow with you on an as-needed basis. Feel free to call with any questions or concerns. I performed an examination of the patient and discussed the management with the HAND REAMER. I have reviewed the HAND REAMER notes and agree with the findings and plan of care.
[2017-06-18 16:29] VITALS: BP 169/85; PULSE 81; TEMP 97.8
--- NOTE | 2017-06-18 19:24 | EEG ---
ELECTROENCEPHALOGRAM REPORT DATE OF SERVICE: 06/18/2017 REASON FOR TESTING: Stroke. DESCRIPTION OF THE PROCEDURE: This EEG was performed using a 21-channel digital electroencephalograph, following international 10-20 system. DESCRIPTION OF THE RECORDING: From the beginning of the tracing, and with the patient's eyes closed, the background rhythm was mostly consisting of 8 Hz alpha frequency in the posterior occipital lead. No obvious asymmetry is seen. Photic stimulation was performed with a good driving response seen. No pathological waves were elicited. Hyperventilation was not performed. The patient does reach stage II of sleep during the tracing and occasional sleep spindles are seen. No epileptiform discharges were seen. His EKG lead showed a regular rate and rhythm. INTERPRETATION: This asleep and awake EEG can be considered within normal limits. There was no asymmetry seen. No epileptiform discharges were noticed. The absence of epileptiform discharges does not rule out the diagnosis of epilepsy; therefore clinical correlation is recommended. ROGER / ALEIDA: [id number] /
== END 2017-06-18 16:55 | disposition home or self-care (01) | DRG 65 ==
LOC: EC 11:53 → 6SEL 15:16
PROVIDERS: ADMIT Internal Medicine; ATTEND Internal Medicine
DX: I63.49 Cerebral infarction due to embolism of other cerebral artery (principal); I50.22 Chronic systolic (congestive) heart failure; E11.21 Type 2 diabetes mellitus with diabetic nephropathy; E11.65 Type 2 diabetes mellitus with hyperglycemia; I11.0 Hypertensive heart disease with heart failure; E78.5 Hyperlipidemia, unspecified; N40.1 Benign prostatic hyperplasia with lower urinary tract symptoms; R33.8 Other retention of urine; R29.810 Facial weakness; R40.2142 Coma scale, eyes open, spontaneous, at arrival to emergency department; R40.2252 Coma scale, best verbal response, oriented, at arrival to emergency department; R40.2362 Coma scale, best motor response, obeys commands, at arrival to emergency department; T38.3X6A Underdosing of insulin and oral hypoglycemic [antidiabetic] drugs, initial encounter; T46.5X6A Underdosing of other antihypertensive drugs, initial encounter; R47.81 Slurred speech; R29.702 NIHSS score 2; R29.701 NIHSS score 1; F40.240 Claustrophobia; Z80.9 Family history of malignant neoplasm, unspecified; Z96.653 Presence of artificial knee joint, bilateral; Z88.1 Allergy status to other antibiotic agents; Z98.49 Cataract extraction status, unspecified eye; Z87.891 Personal history of nicotine dependence; Z89.422 Acquired absence of other left toe(s); Z88.5 Allergy status to narcotic agent; Z88.8 Allergy status to other drugs, medicaments and biological substances; Z82.49 Family history of ischemic heart disease and other diseases of the circulatory system; Z91.128 Patient's intentional underdosing of medication regimen for other reason; Y63.6 Underdosing and nonadministration of necessary drug, medicament or biological substance
CPT/HCPCS: 36415; 70450; 70553; 71046; 80053; 80061; 82550; 82553; 83036; 83090; 84484; 85025; 85610; 85730; 93005; 93306; 93880; 95819; 99291

== ENCOUNTER 2019-07-12 10:28 | Inpatient (IN) | payer MEDICARE ==
[2019-07-12] MEDS ORDERED: diphenhydrAMINE 50 MG/ML 1 ML VIAL IVP STA (10:54)
[2019-07-12] MEDS ORDERED: methylPREDNISolone SOD SUCCI 125 MG/2 ML VIAL IV STA (10:54)
[2019-07-12] MEDS ORDERED: FAMOTIDINE 20 MG/2 ML VIAL IV STA (10:54)
--- NOTE | 2019-07-12 10:59 | ED ---
Neuro HPI - General Chief Complaint: Neuro Symptoms/Deficit Stated Complaint: TIA Time Seen by Provider: 07/12/19 10:30 Source: patient, EMS, RN notes reviewed Mode of arrival: EMS Limitations: no limitations - History of Present Illness Is the patient presenting with stroke symptoms?: Yes Last Known Well Date: 07/11/19 Last Known Well Time: 10:30 Initial Comments: This is a 74-year-old male with a prior history of CVA who states he had the onset sometime last evening of right facial numbness and difficulty closing his eye trouble with keeping fluid and food in his mouth. He woke up this morning with the same symptoms he denies any headache he denies any weakness was upper or lower extremities no other modifying factors this time no recent illnesses. No trauma. Patient does state he believes he had a another stroke based on his symptoms - Related Data Home Medications: Home Medications Medication Instructions Recorded Confirmed Escitalopram [Lexapro] 20 mg PO DAILY 07/12/19 07/12/19 Lisinopril [Prinivil] 10 mg PO HS 07/12/19 07/12/19 Tamsulosin [Flomax] 0.4 mg PO DAILY@1600 07/12/19 07/12/19 metFORMIN HCL [Glucophage] 500 mg PO TID-W/MEALS 07/12/19 07/12/19 Previous Rx's Medication Instructions Recorded Atorvastatin [Lipitor] 40 mg PO HS #30 tab 06/18/17 Allergies/Adverse Reactions: Allergies Allergy/AdvReac Type Severity Reaction Status Date / Time codeine Allergy Anaphylaxis Verified 07/12/19 11:52 diphenhydramine HCl Allergy MEMORY Verified 07/12/19 11:52 [From Benadryl] LOSS, RAPID HEART RATE, ELEVATED BLOOD PRESSURE iodine Allergy Unknown-YEARS Verified 07/12/19 11:52 AGO " morphine Allergy BURNING Verified 07/12/19 11:52 FEELING OF SKIN" tetracycline Allergy Hallucinations,rapid Verified 07/12/19 11:52 heart rate Review of Systems ROS Statement: Those systems with pertinent positive or pertinent negative responses have been documented in the HPI. ROS Other: All systems not noted in ROS Statement are negative. General Exam - General Exam Comments Initial Comments: This is a well-developed well-nourished awake alert oriented times 3 male Limitations: no limitations General appearance: alert, in no apparent distress Head exam: Present: other (Evidence of right facial asymmetry with questionable for head involvement) Eye exam: Present: PERRL, EOMI ENT exam: Present: other (Right facial asymmetry compared to the left) Neck exam: Present: normal inspection, full ROM, other (No stridor JVD or bruits) Respiratory exam: Present: normal lung sounds bilaterally. Absent: respiratory distress, wheezes, rales, rhonchi, stridor Cardiovascular Exam: Present: regular rate, normal rhythm, normal heart sounds. Absent: systolic murmur, diastolic murmur, rubs, gallop, clicks GI/Abdominal exam: Present: soft, normal bowel sounds. Absent: distended, tenderness, guarding, rebound, rigid Extremities exam: Present: normal inspection, full ROM, normal capillary refill. Absent: tenderness, pedal edema, joint swelling, calf tenderness Back exam: Present: normal inspection Neurological exam: Present: alert, oriented X3 Psychiatric exam: Present: normal affect, normal mood Skin exam: Present: warm, dry, intact, normal color. Absent: rash Stroke MDM - Lab Data Result diagrams: 07/12/19 11:00 07/12/19 11:00 Lab Results 07/12/19 07/12/19 07/12/19 Range/Units 11:00 11:00 11:00 WBC 8.5 (3.8-10.6) k/uL RBC 5.11 (4.30-5.90) m/uL Hgb 14.6 (13.0-17.5) gm/dL Hct 44.7 (39.0-53.0) % MCV 87.6 (80.0-100.0) fL MCH 28.6 (25.0-35.0) pg MCHC 32.6 (31.0-37.0) g/dL RDW 13.2 (11.5-15.5) % Plt Count 238 (150-450) k/uL Neutrophils % 73 % Lymphocytes % 20 % Monocytes % 4 % Eosinophils % 1 % Basophils % 0 % Neutrophils # 6.2 (1.3-7.7) k/uL Lymphocytes # 1.7 (1.0-4.8) k/uL Monocytes # 0.4 (0-1.0) k/uL Eosinophils # 0.1 (0-0.7) k/uL Basophils # 0.0 (0-0.2) k/uL PT 10.1 (9.0-12.0) sec INR 1.0 (<1.2) APTT 24.7 (22.0-30.0) sec Sodium 134 L (137-145) mmol/L Potassium 4.1 (3.5-5.1) mmol/L Chloride 101 (98-107) mmol/L Carbon Dioxide 27 (22-30) mmol/L Anion Gap 6 mmol/L BUN 19 (9-20) mg/dL Creatinine 0.80 (0.66-1.25) mg/dL Est GFR (CKD-EPI)AfAm >90 (>60 ml/min/1.73 sqM) Est GFR (CKD-EPI)NonAf 87 (>60 ml/min/1.73 sqM) Glucose 205 H (74-99) mg/dL Calcium 9.0 (8.4-10.2) mg/dL Total Bilirubin 0.5 (0.2-1.3) mg/dL AST 37 (17-59) U/L ALT 36 (4-49) U/L Alkaline Phosphatase 114 (38-126) U/L Creatine Kinase 319 H (55-170) U/L Troponin I (0.000-0.034) ng/mL Total Protein 6.8 (6.3-8.2) g/dL Albumin 4.0 (3.5-5.0) g/dL 07/12/19 Range/Units 11:00 WBC (3.8-10.6) k/uL RBC (4.30-5.90) m/uL Hgb (13.0-17.5) gm/dL Hct (39.0-53.0) % MCV (80.0-100.0) fL MCH (25.0-35.0) pg MCHC (31.0-37.0) g/dL RDW (11.5-15.5) % Plt Count (150-450) k/uL Neutrophils % % Lymphocytes % % Monocytes % % Eosinophils % % Basophils % % Neutrophils # (1.3-7.7) k/uL Lymphocytes # (1.0-4.8) k/uL Monocytes # (0-1.0) k/uL Eosinophils # (0-0.7) k/uL Basophils # (0-0.2) k/uL PT (9.0-12.0) sec INR (<1.2) APTT (22.0-30.0) sec Sodium (137-145) mmol/L Potassium (3.5-5.1) mmol/L Chloride (98-107) mmol/L Carbon Dioxide (22-30) mmol/L Anion Gap mmol/L BUN (9-20) mg/dL Creatinine (0.66-1.25) mg/dL Est GFR (CKD-EPI)AfAm (>60 ml/min/1.73 sqM) Est GFR (CKD-EPI)NonAf (>60 ml/min/1.73 sqM) Glucose (74-99) mg/dL Calcium (8.4-10.2) mg/dL Total Bilirubin (0.2-1.3) mg/dL AST (17-59) U/L ALT (4-49) U/L Alkaline Phosphatase (38-126) U/L Creatine Kinase (55-170) U/L Troponin I <0.012 (0.000-0.034) ng/mL Total Protein (6.3-8.2) g/dL Albumin (3.5-5.0) g/dL - NIH Stroke Scale 1a. Level of Consciousness: (0) alert 1b. LOC Questions: (0) answers correctly 1c. LOC Commands: (0) performs tasks correctly 2. Best Gaze: (0) normal 3. Visual: (0) no visual loss 4. Facial Palsy: (1) minor paralysis 5a. Motor Arm Left: (0) no drift 5b. Motor Arm Right: (0) no drift 6a. Motor Leg Left: (0) no drift 6b. Motor Leg Right: (0) no drift 7. Limb Ataxia: (0) absent 8. Sensory: (1) mild/moderate sensory loss 9. Best Language: (0) no aphasia 10. Dysarthria: (0) normal 11. Extinction/Inattention: (0) no abnormality - Medical Decision Making Imaging results with no acute findings. The patient case is discussed with him as well as with the on-call physician, Dr. Garza - EKG Data -: EKG Interpreted by Me (Sinus rhythm 73. Interval 154 QRS 106 QT cyst QTc 438 /40 to left axis QT p) EKG shows normal: sinus rhythm Past Medical History Past Medical History: CVA/TIA, Hyperlipidemia, Hypertension, Osteoarthritis (OA), Pneumonia, Prostate Disorder Additional Past Medical History / Comment(s): pt is a muslim-no blood transfusions. bells palsy x 2, "HAS A removeable WIRE clipIN HIS NOSE TO HELP KEEP AIR PASSAGE OPEN-pt stated do not remove" ,pt stated not diabetic has hypoglycemia, diverticlosis,murmu as child,scalette fever as child History of Any Multi-Drug Resistant Organisms: None Reported Past Surgical History: Appendectomy, Back Surgery, Joint Replacement, Orthopedic Surgery, Tonsillectomy Additional Past Surgical History / Comment(s): AMBUTATION OF SECOND TOE LEFT FOOT. jey knee replacements. 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" Past Psychological History: Anxiety Smoking Status: Former smoker Past Alcohol Use History: None Reported Past Drug Use History: None Reported - Past Family History Father Additional Family Medical History / Comment(s): heart problems Mother History Unknown: Yes Daughter(s) Family Medical History: Cancer Course Vital Signs 07/12/19 07/12/19 07/12/19 10:29 10:47 11:00 Temperature 98.6 F Pulse Rate 67 73 67 Respiratory 18 16 18 Rate Blood Pressure 184/97 182/98 168/87 O2 Sat by Pulse 99 98 99 Oximetry 07/12/19 07/12/19 11:27 13:01 Temperature Pulse Rate 76 Respiratory 17 17 Rate Blood Pressure 191/105 182/92 O2 Sat by Pulse 97 Oximetry - Reevaluation(s) Reevaluation #1: 07/12/19 14:29 Reevaluation patient reveals no change in his status. I had discussed the case with Dr. Layton. Patient is not a candidate for intervention. Patient be admitted with neurological consultation. I did discuss case with Dr. Garza Disposition Clinical Impression: CVA (cerebral vascular accident) Disposition: ADMITTED IP TO THIS [facility] Condition: Fair Referrals: Mark Aguillon MD [Primary Care Provider] - 1-2 days
[2019-07-12 11:12] LABS: Basophils % (A) 0 %; Eosinophils # (A) 0.1 k/uL (0-0.7); Eosinophils % (A) 1 %; HCT 44.7 % (39.0-53.0); HGB 14.6 gm/dL (13.0-17.5); Lymphocytes # (A) 1.7 k/uL (1.0-4.8); Lymphocytes % (A) 20 %; MCH 28.6 pg (25.0-35.0); MCHC 32.6 g/dL (31.0-37.0); MCV 87.6 fL (80.0-100.0); Mean Platelet Volume 7.3; Monocytes # (A) 0.4 k/uL (0-1.0); Monocytes % (A) 4 %; Neutrophils # (A) 6.2 k/uL (1.3-7.7); Neutrophils % (A) 73 %; Platelet Count 238 k/uL (150-450); RBC 5.11 m/uL (4.30-5.90); RDW 13.2 % (11.5-15.5); WBC 8.5 k/uL (3.8-10.6)
[2019-07-12 11:20] LABS: ALT 36 U/L (4-49); AST 37 U/L (17-59); African American GFR (CKD) >90 (>60 ml/min/1.73 sqM); Alkaline Phosphatase 114 U/L (38-126); Anion Gap 6 mmol/L; Blood Urea Nitrogen 19 mg/dL (9-20); Carbon Dioxide 27 mmol/L (22-30); Chloride 101 mmol/L (98-107); Creatine Kinase 319 U/L (55-170); Glucose 205 mg/dL (74-99); Non-African American GFR(CKD) 87 (>60 ml/min/1.73 sqM); Potassium 4.1 mmol/L (3.5-5.1); Sodium 134 mmol/L (137-145); Total Bilirubin 0.5 mg/dL (0.2-1.3); Total Protein 6.8 g/dL (6.3-8.2)
[2019-07-12 11:21] LABS: Partial Thromboplastin Time 24.7 sec (22.0-30.0); Prothrombin Time 10.1 sec (9.0-12.0)
--- NOTE | 2019-07-12 11:34 | CT ---
EXAMINATION TYPE: CT brain wo con for TPA DATE OF EXAM: 07/12/2019 COMPARISON: 06/17/2017 HISTORY: Right sided facial numbness and difficulty closing right eye. CT DLP: 1175.[address] of the brain was performed. The ventricles, basal cisterns and sulci overlying the cerebral convexities demonstrate moderate enla rgement. There is no evidence for intracranial hemorrhage or sulcal effacement. There is decreased attenuation about the periventricular white matter and deep white matter of both c erebral hemispheres, compatible with chronic small vessel ischemia. Differential diagnosis does inclu de demyelination. No mass effects are seen.No midline shift. Osseous calvarium is intact. If symptoms persist consider MRI. IMPRESSION: 1. Age related atrophic and chronic small vessel ischemic change without acute intracranial process s een at this time.
--- NOTE | 2019-07-12 11:40 | XR ---
EXAMINATION TYPE: XR chest 2V DATE OF EXAM: 07/12/2019 COMPARISON: 06/17/2017 HISTORY: Shortness of breath TECHNIQUE: Frontal and lateral views of the chest are obtained. FINDINGS: Scattered senescent parenchymal changes noted. Chronic elevation right hemidiaphragm. No evidence for infiltrate. No evidence for atelectasis. Heart size is stable. Mediastinal structures are stable and grossly unremarkable. No evidence for hilar prominence. Degenerative changes dorsal spine. IMPRESSION: 1. No evidence for acute pulmonary disease.
--- NOTE | 2019-07-12 11:57 | CT ---
EXAMINATION TYPE: CT angio head neck DATE OF EXAM: 07/12/2019 COMPARISON: None HISTORY: Right sided facial numbness and difficulty closing right eye. CT DLP: 664.6 mGycm CONTRAST: Performed with IV Contrast, patient injected with 65 mL of Isovue 370. Combination Contrast CTA cervical carotids and [place] of [place] CTA cervical carotids with 3-D recons truction Contrast CTA of the cervical carotids was performed 3-D reconstruction imaging obtained at a separate workstation. Right carotid system: Mild plaque is seen of the right common carotid artery. There is mild plaque a lso noted at the carotid bulb and proximal ICA. No significant diameter reduction. ECA is patent. Right vertebral artery appears unremarkable. Left carotid system: Mild plaque is seen of the left common carotid artery. There is mild plaque als o noted at the carotid bulb and proximal ICA. No significant diameter reduction. ECA is patent. Lef t vertebral artery appears unremarkable. IMPRESSION: 1. No significant diameter reduction to account for the patient's symptoms. CTA m[place] of [place] with 3-D reconstruction Contrast CTA of the [place] of [place] was performed 3-D reconstruction imaging obtained at a separate workstation. Vertebrobasilar system as well as intracranial portions of the internal carotid arteries and their ma sundeep tributaries are patent. Atheromatous changes noted. I do not see evidence for sizable aneurysm or vascular malformation. Please note MRI provides greater sensitivity and specificity. Visualized br ain appears grossly unremarkable. IMPRESSION: 1. No significant abnormality.
[2019-07-12] MEDS ORDERED: ARTIFICIAL TEARS OINTMENT 3.5 GM TUBE BOTH EYES PRN (15:16)
--- NOTE | 2019-07-12 15:22 | P.HPIM ---
History of Present Illness patient was informed 74-year-old with known history of facial nerve palsy or Johnson's palsy in the past came in with complaints of difficulty closing his eyes and difficulty keeping the food in the mouth with the facial droop towards right side.patient denied any other weakness patient has little bit of numbness around the perioral area on the right side. Denied any numbness anywhere else. Patient denied any headache patient has tinnitus which is chronic and chronic ear pain denied any recent ENT infections. Patient denied any headache. Patient had nausea vomiting. Patient any fever chills bodyaches flulike symptoms. Patient had a CT angios the head and neck along with CT of the head without contrast did not show any significant abnormalities. Patient probably has Johnson's palsy but the neuro spring setter evaluated the patient on telemetry medicine monitor recommended monitoring one night. Review of Systems REVIEW OF SYSTEMS: CONSTITUTIONAL: No fever, no malaise, no fatigue. HEENT: No recent visual problems or hearing problems. Denied any sore throat. CARDIOVASCULAR: No chest pain, orthopnea, PND, no palpitations, no syncope. PULMONARY: No shortness of breath, no cough, no hemoptysis. GASTROINTESTINAL: No diarrhea, no nausea, no vomiting, no abdominal pain. NEUROLOGICAL: as mentioned in HPI HEMATOLOGICAL: Denies any bleeding or petechiae. GENITOURINARY: Denies any burning micturition, frequency, or urgency. MUSCULOSKELETAL/RHEUMATOLOGICAL: Denies any joint pain, swelling, or any muscle pain. ENDOCRINE: Denies any polyuria or polydipsia. The rest of the 14-point review of systems is negative. Past Medical History Past Medical History: CVA/TIA, Hyperlipidemia, Hypertension, Osteoarthritis (OA), Pneumonia, Prostate Disorder Additional Past Medical History / Comment(s): pt is a moravian-no blood transfusions. bells palsy x 2, "HAS A removeable WIRE clipIN HIS NOSE TO HELP KEEP AIR PASSAGE OPEN-pt stated do not remove" ,pt stated not diabetic has hypoglycemia, diverticlosis,murmu as child,scalette fever as child History of Any Multi-Drug Resistant Organisms: None Reported Past Surgical History: Appendectomy, Back Surgery, Joint Replacement, Orthopedic Surgery, Tonsillectomy Additional Past Surgical History / Comment(s): AMBUTATION OF SECOND TOE LEFT FOOT. jey knee replacements. 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" Past Psychological History: Anxiety Smoking Status: Former smoker Past Alcohol Use History: None Reported Past Drug Use History: None Reported - Past Family History Father Additional Family Medical History / Comment(s): heart problems Mother History Unknown: Yes Daughter(s) Family Medical History: Cancer Medications and Allergies Home Medications Medication Instructions Recorded Confirmed Type Atorvastatin [Lipitor] 40 mg PO HS #30 tab 06/18/17 07/12/19 Rx Escitalopram [Lexapro] 20 mg PO DAILY 07/12/19 07/12/19 History Lisinopril [Prinivil] 10 mg PO HS 07/12/19 07/12/19 History Tamsulosin [Flomax] 0.4 mg PO DAILY@1600 07/12/19 07/12/19 History metFORMIN HCL [Glucophage] 500 mg PO TID-W/MEALS 07/12/19 07/12/19 History Allergies Allergy/AdvReac Type Severity Reaction Status Date / Time codeine Allergy Anaphylaxis Verified 07/12/19 11:52 diphenhydramine HCl Allergy MEMORY Verified 07/12/19 11:52 [From Benadryl] LOSS, RAPID HEART RATE, ELEVATED BLOOD PRESSURE iodine Allergy Unknown-YEARS Verified 07/12/19 11:52 AGO " morphine Allergy BURNING Verified 07/12/19 11:52 FEELING OF SKIN" tetracycline Allergy Hallucinations,rapid Verified 07/12/19 11:52 heart rate Physical Exam Vitals: Vital Signs Temp Pulse Resp BP Pulse Ox 07/12/19 13:01 17 182/92 07/12/19 11:27 76 17 191/105 97 07/12/19 11:00 67 18 168/87 99 07/12/19 10:47 73 16 182/98 98 07/12/19 10:29 98.6 F 67 18 184/97 99 Intake and Output 07/12/19 07/12/19 07/12/19 06:59 14:59 22:59 Other: Weight 92.986 kg PHYSICAL EXAMINATION: GENERAL: The patient is alert and oriented x3, not in any acute distress. Well developed, well nourished. HEENT: Pupils are round and equally reacting to light. EOMI. No scleral icterus. No conjunctival pallor. Normocephalic, atraumatic. No pharyngeal erythema. No thyromegaly. CARDIOVASCULAR: S1 and S2 present. No murmurs, rubs, or gallops. PULMONARY: Chest is clear to auscultation, no wheezing or crackles. ABDOMEN: Soft, nontender, nondistended, normoactive bowel sounds. No palpable organomegaly. MUSCULOSKELETAL: No joint swelling or deformity. EXTREMITIES: No cyanosis, clubbing, or pedal edema. NEUROLOGICAL: Gross neurological examination did not reveal any focal deficitsexcept for right-sided facial palsy which is element palsy involving the forehead anti-right side of the face including orbicularis Reba and orbicularis muscles and inability to completely close the eyes and mouth. Patient has dec reased from creases in the right side of the forehead SKIN: No rashes. 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 Patient did close his right eye with a patch at nighttime. -hyperlipidemia -Hypertension 11 osteoarthritis - benign prostatic tomography -Type 2 diabetes mellitus blood sugars are expected to go up because of systemic steroids will need to be considered regarding steroids patient was started on sliding scale insulin and metformin will be held -anxiety disorder For above-mentioned chronic medical problems patient will be resumed on appropriate home medications
[2019-07-12] MEDS: SODIUM CHLORIDE 0.9% 1,000 ML IV SCH (16:42)
[2019-07-12 17:29] LABS: Glucose,Whole Blood 251 mg/dL (75-99)
[2019-07-12] MEDS ORDERED: metFORMIN 500 MG TAB PO SCH (17:30)
[2019-07-12] MEDS: TAMSULOSIN 0.4 MG CAP.ER.24H PO SCH (17:35)
[2019-07-12] MEDS: INSULIN ASPART (NovoLOG) 100 UNIT/ML VIAL SQ SCH ×2 (17:38→21:19)
[2019-07-12] MEDS: ACYCLOVIR 200 MG CAP PO SCH ×2 (17:45→21:35)
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
[2019-07-12 20:47] LABS: Glucose,Whole Blood 276 mg/dL (75-99)
[2019-07-12] MEDS ORDERED: ATORVASTATIN 40 MG TAB PO SCH (21:00)
[2019-07-12] MEDS ORDERED: LISINOPRIL 10 MG TAB PO SCH (21:00)
[2019-07-12] MEDS: ASPIRIN 325 MG TAB PO SCH (21:19)
[2019-07-13] MEDS: SODIUM CHLORIDE 0.9% 1,000 ML IV SCH ×3 (02:03→14:46)
[2019-07-13 06:36] LABS: Glucose,Whole Blood 292 mg/dL (75-99)
[2019-07-13] MEDS: INSULIN ASPART (NovoLOG) 100 UNIT/ML VIAL SQ SCH ×2 (06:37→12:29)
[2019-07-13 06:54] LABS: Cholesterol 227 mg/dL (<200); HDL Cholesterol 47 mg/dL (40-60); LDL Cholesterol,Calculated 156 mg/dL (0-99); Triglycerides 121 mg/dL (<150)
[2019-07-13] MEDS ORDERED: predniSONE 20 MG TAB PO SCH (09:00)
[2019-07-13] MEDS ORDERED: ESCITALOPRAM 20 MG TAB PO SCH (09:00)
[2019-07-13] MEDS: ACYCLOVIR 200 MG CAP PO SCH ×2 (09:09→14:46)
[2019-07-13] MEDS: ASPIRIN 325 MG TAB PO SCH (09:11)
[2019-07-13 09:23] VITALS: RESP 18
[2019-07-13] MEDS ORDERED: LORazepam 2 MG/ML INJ IV ONE (11:08)
[2019-07-13 11:47] LABS: Glucose,Whole Blood 241 mg/dL (75-99)
--- NOTE | 2019-07-13 12:17 | P.DS ---
Providers Date of admission: 07/12/19 14:58 Attending physician: Luz Marina Garza Consults: 07/12/19 14:59 Consult Physician Routine Consulting Provider: Herbert López Consult Reason/Comments: CVA versus Johnson's palsy Do you want consulting provider notified?: Yes Primary care physician: Pal Espinoza [facility] Course: 74-year-old with known history of facial nerve palsy or Johnson's palsy in the past came in with complaints of difficulty closing his eyes and difficulty keeping the food in the mouth with the facial droop towards right side.patient denied any other weakness patient has little bit of numbness around the perioral area on the right side. Denied any numbness anywhere else. Patient denied any headache patient has tinnitus which is chronic and chronic ear pain denied any recent ENT infections. Patient denied any headache. Patient had nausea vomiting. Patient any fever chills bodyaches flulike symptoms. Patient had a CT angios the head and neck along with CT of the head without contrast did not show any significant abnormalities. Patient probably has Johnson's palsy but the neuro photo editor evaluated the patient on telemetry medicine monitor recommended monitoring one night. 07/13/2019 Neurology evaluated the patient and they're recommending MRI to rule out any stroke if that's negative patient will be discharged today. Patient still has an facial weakness. Which is expected to last for about a week patient will be given prescription for steroids, valacyclovir and artificial eyedrops and patient was counseled to cover right eye with the patch when his sleeves to a void dryness in the eyes. As mentioned avoid if MRI is negative for any stroke patient will be discharged and patient will be discharged on aspirin 81 mg as well as recommended by neurology. PHYSICAL EXAMINATION: GENERAL: The patient is alert and oriented x3, not in any acute distress. Well developed, well nourished. HEENT: Pupils are round and equally reacting to light. EOMI. No scleral icterus. No conjunctival pallor. Normocephalic, atraumatic. No pharyngeal erythema. No thyromegaly. CARDIOVASCULAR: S1 and S2 present. No murmurs, rubs, or gallops. PULMONARY: Chest is clear to auscultation, no wheezing or crackles. ABDOMEN: Soft, nontender, nondistended, normoactive bowel sounds. No palpable organomegaly. MUSCULOSKELETAL: No joint swelling or deformity. EXTREMITIES: No cyanosis, clubbing, or pedal edema. NEUROLOGICAL: Gross neurological examination did not reveal any focal deficitsexcept for right-sided facial palsy which is element palsy involving the forehead anti-right side of the face including orbicularis Reba and orbicularis muscles and inability to completely close the eyes and mouth. Patient has decreased from creases in the right side of the forehead SKIN: No rashes. Assessment and Plan Plan: -right-sided lower motor neuron facial palsy -Rule out cerebrovascular accident -hyperlipidemia -Hypertension osteoarthritis - benign prostatic tomography -Type 2 diabetes mellitus blood sugars are expected to go up because of systemic steroids -patient will be discharged on sliding scale insulin for the length of his steroid usage. Patient's metformin dose was increased as well -anxiety disorder Patient Condition at Discharge: Fair Plan - Discharge Summary Discharge Rx Participant: No New Discharge Prescriptions: New INSULIN LISPRO (humaLOG) [humaLOG] 1 injection SQ DIRECTED #10 ml Artificial Tears Ointment [Lubrifresh Pm Ointment] 1 gm OPHTHALMIC QID #1 tube predniSONE 10 mg PO DAILY #30 tab valACYclovir HCL [Valtrex] 1,000 mg PO Q8HR #21 tab Aspirin 81 mg PO DAILY #30 chewable Famotidine [Pepcid] 20 mg PO BID #30 tablet Continue Atorvastatin [Lipitor] 40 mg PO HS #30 tab Tamsulosin [Flomax] 0.4 mg PO DAILY@1600 Lisinopril [Prinivil] 10 mg PO HS Escitalopram [Lexapro] 20 mg PO DAILY Changed metFORMIN HCL [Glucophage] 1,000 mg PO BID #0 Discharge Medication List Atorvastatin [Lipitor] 40 mg PO HS #30 tab 06/18/17 [Rx] Escitalopram [Lexapro] 20 mg PO DAILY 07/12/19 [History] Lisinopril [Prinivil] 10 mg PO HS 07/12/19 [History] Tamsulosin [Flomax] 0.4 mg PO DAILY@1600 07/12/19 [History] Artificial Tears Ointment [Lubrifresh Pm Ointment] 1 gm OPHTHALMIC QID #1 tube 07/13/19 [Rx] Aspirin 81 mg PO DAILY #30 chewable 07/13/19 [Rx] Famotidine [Pepcid] 20 mg PO BID #30 tablet 07/13/19 [Rx] INSULIN LISPRO (humaLOG) [humaLOG] 1 injection SQ DIRECTED #10 ml 07/13/19 [Rx] metFORMIN HCL [Glucophage] 1,000 mg PO BID #0 07/13/19 [Rx] predniSONE 10 mg PO DAILY #30 tab 07/13/19 [Rx] valACYclovir HCL [Valtrex] 1,000 mg PO Q8HR #21 tab 07/13/19 [Rx] Follow up Appointment(s)/Referral(s): Mark Aguillon MD [Primary Care Provider] - 3 Days Discharge Disposition: HOME SELF-CARE
[2019-07-13 12:54] VITALS: BP 129/63; PULSE 73; TEMP 97.7
--- NOTE | 2019-07-13 14:03 | MR ---
EXAMINATION TYPE: MR brain wo con DATE OF EXAM: 07/13/2019 COMPARISON: CT brain from yesterday. MRI brain November 19, 2015 HISTORY: Rt side facial numbness, Johnson's palsy vs CVA TECHNIQUE: Multiplanar, multisequence imaging of the brain and brainstem is performed without IV cont rast. FINDINGS: Diffusion weighted images demonstrate no evidence of a recent infarct or other diffusion abnormality. There is diffuse ventricular and sulcal prominence redemonstrated. Scattered foci of T2 hyperintensit y throughout the white matter bilaterally are again seen. Slight progression in findings from 2016 an d MRI noted. Midline structures redemonstrate normal morphology. The craniocervical junction appears within andres l limits. Normal vascular flow voids are present. The visualized sinuses are clear and the globes are intact. IMPRESSION: 1. No MRI evidence for recent infarct. 2. Moderate diffuse cerebral atrophy and chronic small vessel ischemic change redemonstrated with ivory e progression from 2016 MRI.
[2019-07-13] MEDS: TAMSULOSIN 0.4 MG CAP.ER.24H PO SCH (14:46)
[2019-07-14 04:21] LABS: Hemoglobin A1C 9.5 % (4.0-6.0)
== END 2019-07-13 15:52 | disposition home health service (06) | DRG 74 ==
LOC: EC 10:28 → 3SCARD 14:58
PROVIDERS: ADMIT Internal Medicine; ATTEND Internal Medicine
DX: G51.0 Bell's palsy (principal); E78.5 Hyperlipidemia, unspecified; I10 Essential (primary) hypertension; M19.90 Unspecified osteoarthritis, unspecified site; E11.9 Type 2 diabetes mellitus without complications; Z11.59 Encounter for screening for other viral diseases; F40.240 Claustrophobia; I49.1 Atrial premature depolarization; N40.0 Benign prostatic hyperplasia without lower urinary tract symptoms; F41.9 Anxiety disorder, unspecified; K57.90 Diverticulosis of intestine, part unspecified, without perforation or abscess without bleeding; H91.90 Unspecified hearing loss, unspecified ear; Z88.1 Allergy status to other antibiotic agents; Z88.5 Allergy status to narcotic agent; Z88.8 Allergy status to other drugs, medicaments and biological substances; Z87.01 Personal history of pneumonia (recurrent); Z98.49 Cataract extraction status, unspecified eye; Z79.84 Long term (current) use of oral hypoglycemic drugs; Z79.899 Other long term (current) drug therapy; Z86.73 Personal history of transient ischemic attack (TIA), and cerebral infarction without residual deficits; Z87.891 Personal history of nicotine dependence; Z96.653 Presence of artificial knee joint, bilateral; Z89.422 Acquired absence of other left toe(s)
CPT/HCPCS: 36415; 70450; 70496; 70498; 70551; 71046; 80053; 80061; 82550; 83036; 84484; 85025; 85610; 85730; 87635; 93005; 96374; 96375; 99285

== ENCOUNTER 2019-12-23 20:33 | Inpatient (IN) | payer MEDICARE ==
[2019-12-23 20:47] LABS: Glucose,Whole Blood 336 mg/dL (75-99)
[2019-12-23] MEDS ORDERED: ACETAMINOPHEN TAB 325 MG TAB PO STA (21:39)
[2019-12-23 22:13] LABS: Basophils # (A) 0.1 k/uL (0-0.2); Basophils % (A) 0 %; Eosinophils # (A) 0.1 k/uL (0-0.7); Eosinophils % (A) 0 %; HCT 39.9 % (39.0-53.0); HGB 12.7 gm/dL (13.0-17.5); Lymphocytes # (A) 0.5 k/uL (1.0-4.8); Lymphocytes % (A) 2 %; MCH 28.9 pg (25.0-35.0); MCHC 31.8 g/dL (31.0-37.0); MCV 90.9 fL (80.0-100.0); Mean Platelet Volume 8.4; Monocytes # (A) 1.3 k/uL (0-1.0); Monocytes % (A) 4 %; Neutrophils % (A) 93 %; Platelet Count 205 k/uL (150-450); RBC 4.39 m/uL (4.30-5.90); RDW 13.5 % (11.5-15.5); WBC 29.5 k/uL (3.8-10.6)
[2019-12-23 22:19] LABS: INR 1.3 (<1.2); Neutrophils # (A) 27.5 k/uL (1.3-7.7); Partial Thromboplastin Time 26.1 sec (22.0-30.0); Prothrombin Time 12.6 sec (9.0-12.0)
--- NOTE | 2019-12-23 22:23 | CT ---
EXAMINATION TYPE: CT brain cspine wo con DATE OF EXAM: 12/23/2019 COMPARISON: 06/17/[address] scan HISTORY: Fall injury CT DLP: 1403.6 mGycm Automated exposure control for dose reduction was used. There is cerebral cortical atrophy. There is no mass effect nor midline shift. There is no sign of in tracranial hemorrhage. The calvarium is intact. Skull base is intact. There is normal aeration of the mastoid sinuses. There is 6 mm hypodense focus right thalamus consistent with old lacunar infarct un changed. Cervical vertebra have normal alignment. There is disc space narrowing at C5-6 and C6-7 with spurring and vacuum disc. The posterior elements are intact. There is multilevel hypertrophic cervical facet arthropathy. The prevertebral soft tissues are not enlarged. There is no evidence of cervical spine f racture. IMPRESSION: Spondylotic changes in the lower cervical spine. No fracture seen. Cerebral atrophy. No acute intracranial abnormality. No adverse change compared to old exam.
[2019-12-23 22:27] LABS: AST 61 U/L (17-59); Acetaminophen <10.0 ug/mL; African American GFR (CKD) 39 (>60 ml/min/1.73 sqM); Albumin 3.6 g/dL (3.5-5.0); Alcohol <10 mg/dL; Alkaline Phosphatase 92 U/L (38-126); Anion Gap 17 mmol/L; Blood Urea Nitrogen 34 mg/dL (9-20); Calcium 8.7 mg/dL (8.4-10.2); Carbon Dioxide 18 mmol/L (22-30); Chloride 94 mmol/L (98-107); Glucose 331 mg/dL (74-99); Non-African American GFR(CKD) 34 (>60 ml/min/1.73 sqM); Potassium 4.1 mmol/L (3.5-5.1); Salicylate <1.0 mg/dL; Sodium 129 mmol/L (137-145); Total Protein 6.2 g/dL (6.3-8.2)
--- NOTE | 2019-12-23 22:30 | XR ---
EXAMINATION TYPE: XR knee complete LT DATE OF EXAM: 12/23/2019 COMPARISON: NONE HISTORY: Pain TECHNIQUE: 3 views FINDINGS: There is left knee prosthesis. Components are in anatomic position. I see no fracture. IMPRESSION: No fracture seen.
--- NOTE | 2019-12-23 22:32 | XR ---
EXAMINATION TYPE: XR tibia fibula LT DATE OF EXAM: 12/23/2019 COMPARISON: NONE HISTORY: Pain TECHNIQUE: 3 views FINDINGS: Tibia and fibula appear intact. I see no evidence of a fracture. There is an [place] spur. Ankle mortise is anatomic. There is a left knee prosthesis. IMPRESSION: No acute abnormality of the left tibia and fibula.
[2019-12-23 22:41] LABS: ALT 29 U/L (4-49); Creatine Kinase 1172 U/L (55-170)
--- NOTE | 2019-12-23 23:21 | XR ---
EXAMINATION TYPE: XR chest 2V DATE OF EXAM: 12/23/2019 COMPARISON: 07/12/2019 HISTORY: 2 views TECHNIQUE: FINDINGS: Heart is normal. Lungs are clear of consolidation. There is poor inspiration. There are cecilia st leads. The bony thorax is intact. There is no sign of pleural effusion. IMPRESSION: Inspiration is decreased compared to old exam. Normal heart.
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
[2019-12-24] MEDS ORDERED: cefTRIAXone IN SWFI 1,000 MG/10 ML SYRINGE IVP STA (00:17)
[2019-12-24] MEDS ORDERED: ACETAMINOPHEN TAB 325 MG TAB PO PRN (00:37)
[2019-12-24] MEDS ORDERED: NALOXONE 0.4 MG/ML 1 ML VIAL IV PRN (00:37)
[2019-12-24 00:59] LABS: Appearance,Urine Cloudy (Clear); Bacteria,Urine Many /hpf; Bilirubin,Urine Negative (Negative); Blood,Urine Moderate (Negative); Color,Urine Yellow; Glucose,Urine (UA) 3+ (Negative); Hyaline Casts,Urine 8 /lpf (0-2); Ketones,Urine 1+ (Negative); Leukocyte Esterase,Urine Large (Negative); Mucus,Urine Rare /hpf; Nitrite,Urine Negative (Negative); PH, Urine 5.5 (5.0-8.0); Protein,Urine 2+ (Negative); RBC,Urine 4 /hpf (0-5); Specific Gravity,Urine 1.017 (1.001-1.035); Squamous Epithelial Cell,Urine <1 /hpf (0-4); Urobilinogen,Urine <2.0 mg/dL (<2.0); WBC,Urine >182 /hpf (0-5)
[2019-12-24] MEDS: SODIUM CHLORIDE 0.9% 1,000 ML IV SCH ×3 (01:16→15:38)
[2019-12-24 03:05] LABS: Glucose,Whole Blood 183 mg/dL (75-99)
[2019-12-24] MEDS: METOPROLOL TARTRATE 25 MG TAB PO SCH ×3 (05:41→20:46)
[2019-12-24 06:58] LABS: Glucose,Whole Blood 178 mg/dL (75-99)
[2019-12-24 07:03] LABS: Basophils % (A) 0 %; Eosinophils % (A) 0 %; HCT 41.4 % (39.0-53.0); HGB 13.7 gm/dL (13.0-17.5); Lymphocytes # (A) 0.6 k/uL (1.0-4.8); Lymphocytes % (A) 3 %; MCH 29.6 pg (25.0-35.0); MCV 89.8 fL (80.0-100.0); Mean Platelet Volume 7.3; Monocytes # (A) 0.3 k/uL (0-1.0); Monocytes % (A) 1 %; Neutrophils # (A) 20.5 k/uL (1.3-7.7); Neutrophils % (A) 96 %; Platelet Count 191 k/uL (150-450); RBC 4.62 m/uL (4.30-5.90); RDW 13.5 % (11.5-15.5); WBC 21.4 k/uL (3.8-10.6)
[2019-12-24] MEDS: INSULIN ASPART (NovoLOG) 100 UNIT/ML VIAL SQ SCH ×4 (07:54→20:46)
[2019-12-24 09:07] LABS: African American GFR (CKD) 44.4 (60.0-200.0); Anion Gap 9.6 mmol/L (4.00-12.00); BUN/Creat Ratio 22.94 Ratio (12.00-20.00); Calcium 9.2 mg/dL (8.7-10.3); Carbon Dioxide 29.4 mmol/L (21.6-31.8); Non-African American GFR(CKD) 38.3 (60.0-200.0); Potassium 4.4 mmol/L (3.5-5.5)
[2019-12-24] MEDS: ESCITALOPRAM 10 MG TAB PO SCH (09:22)
[2019-12-24] MEDS: ASPIRIN 81 MG PO SCH (09:22)
[2019-12-24] MEDS: ARTIFICIAL TEARS OINTMENT 3.5 GM TUBE BOTH EYES SCH ×4 (09:41→20:48)
[2019-12-24 11:43] LABS: Glucose,Whole Blood 202 mg/dL (75-99)
[2019-12-24] MEDS ORDERED: CLOTRIMAZOLE 1% CREAM 15 GM TUBE TOPICAL PRN (15:42)
[2019-12-24] MEDS ORDERED: LORazepam 0.5 MG TAB PO PRN (15:42)
[2019-12-24] MEDS ORDERED: ALPRAZolam 0.25 MG TAB PO PRN (15:44)
--- NOTE | 2019-12-24 16:23 | HP ---
HISTORY AND PHYSICAL CHIEF COMPLAINT: Fall. HISTORY OF PRESENT ILLNESS: This 74-year-old gentleman with a past medical history of multiple medical illnesses, CVA, TIA, hypertension, history of DJD, history of Mandaen, appendectomy, back surgery, being followed by Dr. Aguillon in the outpatient setting, was admitted with fall. The patient apparently had falls and lost his balance and after getting on the toilet. The patient also scraped left knee and the patient came to [facility], admitted for further evaluation and treatment. The patient is confused. There is no history of any fever, rigors. No history of headache and seizures at this time. The family thought the patient is buying expensive things off the Internet over the past month and the patient used to be an radio frequency design engineer. The patient apparently had a contraption with a paper clips which he uses to help with breathing in the nose, which is applied on and off for the last several years, according to him, which the patient changes every 2 months. After admission, the patient had elevated blood count and elevated creatinine indicative of sepsis. Plasma lactic acid elevated. Troponin 0.120. Covid-19 has been requested and blood culture Gram stain showed evidence of gram-negative bacilli also. There is no history of any headache, any chest pain or palpitations at this time. PAST MEDICAL HISTORY: History CVA, TIA, hypertension, hyperlipidemia, DJD, history of prostate disorder, Mandaen. MEDICATIONS: Home medications are: Glucophage 1000 mg p.o. b.i.d., Flomax 0.4 q.h.s., Prinivil 10 mg, Ativan 0.25 mg daily p.r.n., QV pen, Lexapro, Lipitor, aspirin, Artificial Tears. ALLERGIES: CODEINE, BENADRYL, IODINE, MORPHINE, TETRACYCLINE. FAMILY HISTORY: History of cancer, heart problems in the family. SOCIAL HISTORY: Previous history of smoking. No history of current smoking. No alcohol. REVIEW OF SYSTEMS: ENT: No diminished vision, otherwise mentioned earlier. CARDIOVASCULAR: No angina. RESPIRATION as mentioned earlier. GI: As mentioned earlier. : No dysuria. NERVOUS SYSTEM: As mentioned earlier. ALLERGIES/IMMUNOLOGY: No asthma or hayfever. MUSCULOSKELETAL as mentioned earlier. HEMATOLOGY: No history of anemia./ ENDOCRINE as mentioned earlier. CONSTITUTIONAL: As mentioned earlier. DERMATOLOGY: Negative. RHEUMATOLOGY: Negative. PSYCHIATRY: As mentioned earlier. PHYSICAL EXAMINATION: Alert and oriented x3. Pulse 68. Blood pressure 106/53, respiration 17, temperature 98.4, pulse ox 96% on 2 L. HEENT is conjunctivae normal. NECK: No JVD. CARDIOVASCULAR: S1, S2 muffled. RESPIRATION: Breath sounds diminished in the bases. A few scattered rhonchi and crackles. ABDOMEN: Soft, nontender. No mass palpable. LEGS: No edema. No swelling. NERVOUS SYSTEM: Diffusely weak. Examination of the skin: Multiple excoriations present on the left leg. LYMPHATICS: No lymph nodes palpable in the neck, axillae or groin. JOINTS: No active deforming arthropathy. LAB STUDIES: WBC 21.4. Creatinine is 1.7. UA shows possibly UTI. ASSESSMENT: 1. Possible acute urinary tract infection with sepsis. 2. Change in mental status, metabolic encephalopathy, possibly secondary to sepsis. 3. Fall and gait dysfunction. 4. Acute renal failure with acute tubular necrosis, prerenal renal failure. 5. Hyponatremia. 6. Diabetes mellitus type 2, uncontrolled with hyperglycemia. 7. Elevated creatinine kinase. 8. Mild rhabdomyolysis. 9. Troponin 0.120, rule out acute non-ST segment myocardial infarction. 10.Hyponatremia. 11.Elevated WBC possibly secondary to sepsis. 12.Elevated AST. 13.Gait dysfunction. 14.History of cerebrovascular accident, transient ischemic attack. 15.Hypertension. 16.Hyperlipidemia. 17.Degenerative joint disease. 18.History of pneumonia. 19.History of Mandaen. 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 21.History of back surgery/degenerative joint disease. 22.History of blood transfusion reaction apparently. 23.Claustrophobia. 24.History of anxiety. 25.Remote history of nicotine dependence. 26.NO CODE, NO CPR, NO VENT. RECOMMENDATIONS AND DISCUSSION: In this 74-year-old gentleman gentleman who presented with multiple complex medical issues, we will monitor the patient closely, continue the current medications. We will initiate broad-spectrum IV antibiotics. As mentioned earlier, blood culture shows gram- negative bacilli. We will continue to monitor. Urine culture is also awaited. Resume the home medications. Otherwise, monitor blood pressure closely. Symptomatic treatment. Other than that, I would also recommend monitor the blood sugars closely. Accu-Cheks before meals and q.h.s. Monitor sodium closely. Monitor creatinine closely. The baseline creatinine appears to be normal, so we will continue to monitor. Once again, the prognosis guarded. Cautious IV fluids. Creatinine kinase elevated, indicating acute rhabdomyolysis. The chest x-ray which was personally reviewed by me showed some atelectasis. Otherwise, the patient also had multiple x-rays and CT scan of the head and cervical spine also showed only cerebral atrophy. No other acute abnormalities are noted. Once again, the prognosis guarded because of multiple complex medical issues. Further recommendations to follow. A copy of this dictation being forwarded to Dr. Aguillon, who is the primary physician. X-rays including an x-ray did not show any acute abnormality. I would recommend PT/OT to evaluate the patient and social insurance analyst to evaluate the patient for any rehab potential. MMODL / IJN: [id number] / MTDD
[2019-12-24 17:14] LABS: Glucose,Whole Blood 166 mg/dL (75-99)
--- NOTE | 2019-12-24 17:30 | ECHOF ---
Referral Reason:chf MEASUREMENTS -------- HEIGHT: 175.3 cm WEIGHT: 79.4 kg BP: 117/69 RVIDd: 2.8 cm (< 3.3) IVSd: 1.5 cm (0.6 - 1.1) LVIDd: 4.8 cm (3.9 - 5.3) LVPWd: 1.5 cm (0.6 - 1.1) IVSs: 1.8 cm LVIDs: 3.2 cm LVPWs: 1.8 cm LA Diam: 3.0 cm (2.7 - 3.8) Ao Diam: 3.6 cm (2.0 - 3.7) AV Cusp: 2.1 cm (1.5 - 2.6) MV EXCURSION: 19.436 mm (> 18.000) MV EF SLOPE: 79 mm/s (70 - 150) EPSS: 0.7 cm MV E Chito: 0.87 m/s MV DecT: 260 ms MV A Chito: 0.82 m/s MV E/A Ratio: 1.06 RAP: 5.00 mmHg RVSP: 40.40 mmHg FINDINGS -------- Sinus rhythm. This was a technically difficult study with suboptimal apical views. The left ventricular size is normal. There is moderate concentric left ventricular hypertrophy. O verall left ventricular systolic function is mildly impaired with, an EF between 45 - 50 %. The right ventricle is normal in size. Normal LA size by volume 22+/-6 ml/m2. The right atrium is normal in size. Lumason used Interatrial and interventricular septum intact. The aortic valve is trileaflet and appears structurally normal. The mitral valve is normal. Mild tricuspid regurgitation present. There is mild pulmonary hypertension. The right ventricular systolic pressure, as measured by Doppler, is 40.40mmHg. There is no pulmonic regurgitation present. The aortic root size is normal. Normal inferior vena cava with normal inspiratory collapse consistent with estimated right atrial pre ssure of 5 mmHg. There is no pericardial effusion. CONCLUSIONS -------- 1. The left ventricular size is normal. 2. There is moderate concentric left ventricular hypertrophy. 3. Overall left ventricular systolic function is mildly impaired with, an EF between 45 - 50 %. 4. Lumason used 5. Mild tricuspid regurgitation present. 6. There is mild pulmonary hypertension. 7. The right ventricular systolic pressure, as measured by Doppler, is 40.40mmHg. 8. There is no pericardial effusion. CHARGE OPERATOR: Neha Gold RDCS
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
[2019-12-24 20:34] LABS: Glucose,Whole Blood 257 mg/dL (75-99)
[2019-12-24] MEDS: ATORVASTATIN 40 MG TAB PO SCH (20:46)
[2019-12-24] MEDS: HEPARIN SODIUM,PORCINE 5,000 UNIT/ML 1 ML VIAL SQ SCH (20:46)
[2019-12-24] MEDS: TAMSULOSIN 0.4 MG CAP.ER.24H PO SCH (20:46)
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
[2019-12-25] MEDS: SODIUM CHLORIDE 0.9% 1,000 ML IV SCH ×3 (00:37→16:59)
[2019-12-25 06:12] LABS: Basophils % (A) 0 %; Eosinophils % (A) 0 %; HCT 34.9 % (39.0-53.0); HGB 11.3 gm/dL (13.0-17.5); Lymphocytes # (A) 0.6 k/uL (1.0-4.8); Lymphocytes % (A) 3 %; MCH 29.2 pg (25.0-35.0); MCHC 32.4 g/dL (31.0-37.0); MCV 90.1 fL (80.0-100.0); Mean Platelet Volume 7.3; Monocytes # (A) 0.6 k/uL (0-1.0); Monocytes % (A) 3 %; Neutrophils # (A) 18.6 k/uL (1.3-7.7); Neutrophils % (A) 93 %; Platelet Count 160 k/uL (150-450); RBC 3.87 m/uL (4.30-5.90); RDW 13.2 % (11.5-15.5); WBC 20.1 k/uL (3.8-10.6)
[2019-12-25 06:40] LABS: Glucose,Whole Blood 180 mg/dL (75-99)
[2019-12-25] MEDS: ARTIFICIAL TEARS OINTMENT 3.5 GM TUBE BOTH EYES SCH ×3 (06:59→21:04)
[2019-12-25] MEDS: INSULIN ASPART (NovoLOG) 100 UNIT/ML VIAL SQ SCH ×4 (07:09→21:04)
[2019-12-25] MEDS: METOPROLOL TARTRATE 25 MG TAB PO SCH ×2 (07:10→21:04)
[2019-12-25] MEDS: HEPARIN SODIUM,PORCINE 5,000 UNIT/ML 1 ML VIAL SQ SCH ×2 (07:10→21:03)
[2019-12-25] MEDS: FOLIC ACID 1 MG TAB PO SCH (07:10)
[2019-12-25] MEDS: MULTIVITAMINS, THERA 1 EACH TAB PO SCH (07:10)
[2019-12-25] MEDS: THIAMINE 100 MG TAB PO SCH (07:10)
[2019-12-25] MEDS: ASPIRIN 81 MG PO SCH (07:10)
[2019-12-25] MEDS: PANTOPRAZOLE 40 MG TABLET PO SCH (07:10)
[2019-12-25] MEDS: ESCITALOPRAM 10 MG TAB PO SCH (07:11)
[2019-12-25 09:37] LABS: African American GFR (CKD) 44.4 (60.0-200.0); Albumin 3.1 g/dL (3.80-4.90); Albumin/Globulin Ratio 1.72 (1.60-3.17); Anion Gap 6.3 mmol/L (4.00-12.00); BUN/Creat Ratio 23.53 Ratio (12.00-20.00); Calcium 8.2 mg/dL (8.7-10.3); Carbon Dioxide 26.7 mmol/L (21.6-31.8); Globulin 1.8 g/dL (1.6-3.3); Non-African American GFR(CKD) 38.3 (60.0-200.0); Potassium 4.5 mmol/L (3.5-5.5); Total Bilirubin 0.6 mg/dL (0.2-1.2); Total Protein 4.9 g/dL (6.2-8.2)
--- NOTE | 2019-12-25 10:33 | US ---
EXAMINATION TYPE: US abdomen complete DATE OF EXAM: 12/25/2019 COMPARISON: NONE CLINICAL HISTORY: 74-year-old male BACTEREMIA. UTI TECHNIQUE: Multiple sonographic images of the abdomen are obtained. FINDINGS: EXAM MEASUREMENTS: Liver Length: 16.8 cm Gallbladder Wall: 0.2 cm CBD: 0.3 cm Spleen: 10.5 cm Right Kidney: 11.9 x 5.8 x 5.9 cm Left Kidney: 11.5 x 6.0 x 5.4 cm Piercer Operator notes:Pt very gassy, limited/difficult exam Pancreas: Obscured by bowel gas Liver: Limited visualization shows no abnormality Gallbladder: Distention without wall thickening, pericholecystic fluid, or shadowing calculi. Evidence for sonographic Gomez's sign: No CBD: wnl Spleen: wnl Right Kidney: No evidence of hydro, lower pole gassed out Left Kidney: No evidence of hydro Upper IVC: wnl Abd Aorta: Mostly obscured by overlying bowel gas, mid and distal portions visualized appeared wnl IMPRESSION: Technically limited exam. No gallstones, acute cholecystitis, or biliary ductal dilatation. No hydron ephrosis.
[2019-12-25 11:55] LABS: Glucose,Whole Blood 206 mg/dL (75-99)
--- NOTE | 2019-12-25 13:17 | P.PN ---
Subjective Progress Note Date: 12/25/19 This is a 74-year-old gentleman was admitted to the hospital following a fall. He is diagnosed to have sepsis and suspected UTI. He is being treated with antibiotics. We're asked to see the patient because of abnormal troponin. Patient's CPKs elevated. Patient also has renal failure with creatinine of 1.7- 1.8. It was felt that an elevated troponin of related to renal failure and elevated CPK from the fall. So far no arrhythmias are documented. Continue current medical therapy. We'll see him as needed Objective - Vital Signs Vital signs: Vital Signs Temp 98 F 12/25/19 07:02 Pulse 68 12/25/19 07:02 Resp 17 12/25/19 07:02 BP 132/54 12/25/19 07:02 Pulse Ox 97 12/25/19 12:17 Intake & Output 12/24/19 12/25/19 12/25/19 18:59 06:59 18:59 Other: Voiding Method Diaper Diaper Incontinent Incontinent # Voids 1 1 1 - Exam GENERAL EXAM: Patient is alert HEENT: Normocephalic. NECK: No masses, no nuchal rigidity. CHEST: No chest wall deformity. LUNGS: No wheezing or rhonchi HEART: [S1 and S2 normal w ABDOMEN: No hepatosplenomegaly, normal bowel sounds, no guarding or rigidity. SKIN: No rashes CENTRAL NERVOUS SYSTEM: Stable EXTREMITIES: [No cyanosis, clubbing or edema.]Accept the falls - Labs CBC & Chem 7: 12/25/19 05:43 12/25/19 05:43 Labs: Abnormal Lab Results - Last 24 Hours (Table) 12/24/19 12/24/19 12/25/19 Range/Units 17:07 20:32 05:43 WBC (3.8-10.6) k/uL RBC (4.30-5.90) m/uL Hgb (13.0-17.5) gm/dL Hct (39.0-53.0) % Neutrophils # (1.3-7.7) k/uL Lymphocytes # (1.0-4.8) k/uL Sodium 133 L (135-145) mmol/L BUN 40.0 H (9.0-27.0) mg/dL Creatinine 1.7 H (0.6-1.5) mg/dL Est GFR (CKD-EPI)AfAm 44.4 L (60.0-200.0) Est GFR (CKD-EPI)NonAf 38.3 L (60.0-200.0) BUN/Creatinine Ratio 23.53 H (12.00-20.00) Ratio Glucose 181 H (70-110) mg/dL POC Glucose (mg/dL) 166 H 257 H (75-99) mg/dL Calcium 8.2 L (8.7-10.3) mg/dL AST 49 H (14-35) U/L Creatine Kinase 618 H (35-257) U/L Total Protein 4.9 L (6.2-8.2) g/dL Albumin 3.10 L (3.80-4.90) g/dL 12/25/19 12/25/19 12/25/19 Range/Units 05:43 06:38 11:52 WBC 20.1 H (3.8-10.6) k/uL RBC 3.87 L (4.30-5.90) m/uL Hgb 11.3 L (13.0-17.5) gm/dL Hct 34.9 L (39.0-53.0) % Neutrophils # 18.6 H (1.3-7.7) k/uL Lymphocytes # 0.6 L (1.0-4.8) k/uL Sodium (135-145) mmol/L BUN (9.0-27.0) mg/dL Creatinine (0.6-1.5) mg/dL Est GFR (CKD-EPI)AfAm (60.0-200.0) Est GFR (CKD-EPI)NonAf (60.0-200.0) BUN/Creatinine Ratio (12.00-20.00) Ratio Glucose (70-110) mg/dL POC Glucose (mg/dL) 180 H 206 H (75-99) mg/dL Calcium (8.7-10.3) mg/dL AST (14-35) U/L Creatine Kinase (35-257) U/L Total Protein (6.2-8.2) g/dL Albumin (3.80-4.90) g/dL Microbiology - Last 24 Hours (Table) 12/24/19 00:02 Blood Culture Gram Stain - Preliminary Blood Blood Culture - Preliminary Gram Neg Bacilli 12/24/19 00:02 Blood Culture - Final Blood Assessment and Plan (1) Troponin level elevated Current Visit: Yes Status: Acute Code(s): R77.8 - OTHER SPECIFIED ABNORMALITIES OF PLASMA PROTEINS SNOMED Code(s): 515550266 (2) Fall Current Visit: Yes Status: Acute Code(s): W19.XXXA - UNSPECIFIED FALL, INITIAL ENCOUNTER SNOMED Code(s): 1324507 (3) CVA (cerebral vascular accident) Current Visit: No Status: Acute Code(s): I63.9 - CEREBRAL INFARCTION, UNSPECIFIED SNOMED Code(s): 170870431 (4) Gram negative sepsis Current Visit: Yes Status: Acute Code(s): A41.50 - GRAM-NEGATIVE SEPSIS, UNSPECIFIED SNOMED Code(s): 178257548 (5) Elevated CPK Current Visit: Yes Status: Acute Code(s): R74.8 - ABNORMAL LEVELS OF OTHER SERUM ENZYMES SNOMED Code(s): 233276767 (6) Chronic renal failure Current Visit: Yes Status: Acute Code(s): N18.9 - CHRONIC KIDNEY DISEASE, UNSPECIFIED SNOMED Code(s): 41467035 (7) Cardiomyopathy Current Visit: Yes Status: Acute Code(s): I42.9 - CARDIOMYOPATHY, UNSPECIFIED SNOMED Code(s): 14909889 Plan: Patient's still has significant elevated white count. Being treated for UTI. No Sigmund arrhythmias noted. We'll follow as needed
[2019-12-25 16:56] LABS: Glucose,Whole Blood 160 mg/dL (75-99)
[2019-12-25 20:33] LABS: Glucose,Whole Blood 180 mg/dL (75-99)
[2019-12-25] MEDS: TAMSULOSIN 0.4 MG CAP.ER.24H PO SCH (21:04)
[2019-12-25] MEDS: INSULIN DETEMIR (LEVEMIR) 100 UNIT/ML SYR SQ SCH (21:04)
[2019-12-25] MEDS: ATORVASTATIN 40 MG TAB PO SCH (21:04)
--- NOTE | 2019-12-25 22:52 | PN ---
PROGRESS NOTE DATE OF SERVICE: 12/25/2019 This 74-year-old gentleman was admitted with UTI with sepsis also had significant problems with compliance. The patient also has dementia. The patient apparently is obtaining multiple supplements through internet spending 100s of dollars according to the family and stopping taken insulin. The patient had gram-negative bacilli grown from the blood and the urine. The patient is on broad spectrum IV antibiotics. Patient also uses a nasal clip contraption designed by him to help him with the breathing. There is no infection in the nose at this time according to Infectious Disease as well as staff notes. PAST MEDICAL HISTORY: Reviewed. REVIEW OF SYSTEMS: CARDIOVASCULAR SYSTEM: No angina. RESPIRATORY SYSTEM: As mentioned earlier GI: As mentioned earlier. : No dysuria. NERVOUS SYSTEM: No numbness or weakness. CURRENT MEDICATIONS: Current medications are reviewed and include: Tylenol, Xanax, aspirin, Lipitor, Rocephin, Lexapro, folic acid, NovoLog, multivitamins, Narcan, vitamin B1, Flomax. PHYSICAL EXAMINATION: The patient is alert and oriented x3. Pulse 67, blood pressure 124/69, respirations 16, temperature 98.5, pulse ox 95% on room air. HEENT: Conjunctivae normal. NECK: No jugular venous distention. CARDIOVASCULAR: S1, S2 muffled. RESPIRATORY: Breath sounds diminished at the bases. A few scattered rhonchi and crackles. ABDOMEN: Soft. Nontender. LEGS: No edema, no swelling. NERVOUS SYSTEM: Diffusely weak. LABS: WBC 20.1, hemoglobin 11.3, sodium 133, potassium 4.5, creatinine is 1.7 and glucose 181. ASSESSMENT: 1. Acute urinary tract infection with sepsis with gram-negative bacilli, present on admission. 2. Change in mental status, metabolic encephalopathy secondary to sepsis, acute. 3. Fall and gait dysfunction. 4. Acute renal failure, acute tubular necrosis, prerenal failure, present on admission. 5. Hyponatremia. 6. Dementia. 7. Diabetes mellitus type 2, uncontrolled with hyperglycemia. 8. History of noncompliance. 9. Elevated creatine kinase with mild rhabdomyolysis. 10.Troponin 0.120, possibly secondary to rhabdomyolysis, rule out coronary artery disease. 11.Elevated WBC possibly secondary to sepsis. 12.Elevated AST. 13.Gait dysfunction. 14.History of cerebrovascular accident, transient ischemic attack. 15.Hypertension. 16.Hyperlipidemia. 17.History of degenerative joint disease. 18.History of pneumonia. 19.History of [place]. 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 21.History of back surgery, degenerative joint disease. 22.History of blood transfusion reaction apparently. 23.History of claustrophobia. 24.History of anxiety. 25.Remote history of nicotine dependence. 26.NO CODE, NO CPR, NO VENT. RECOMMENDATIONS AND DISCUSSION: Recommend to continue the current medications, continue with symptomatic treatment. Continue with IV antibiotics. Obtain the cultures. I also had a detailed discussion with Saige, the patient's daughter, who corroborated the patient's history of obtaining multiple supplements over the Internet and stopping the patient's regular medications. I discussed with the patient about the necessity for continuing the medications and importance of compliance. I would recommend to continue the current medications. I would also start Lantus small dose of 15 units at bedtime and continue to monitor. Prognosis guarded. Further recommendations to follow. MMKIRBYL / IJN: [id number] /
[2019-12-26 01:52] LABS: Glucose,Whole Blood 138 mg/dL (75-99)
--- NOTE | 2019-12-26 04:20 | PN ---
PROGRESS NOTE DATE OF SERVICE: 12/25/2019 REASON FOR FOLLOWUP: Gram-negative bacteremia likely UTI. INTERVAL HISTORY: The patient is currently afebrile. The patient is breathing comfortably. Patient denies having any chest pain. No shortness of breath. Minimal cough. No nausea, no vomiting. No diarrhea. PHYSICAL EXAMINATION: Blood pressure 150/70 with pulse of 76, temperature 99.2. He is 93% on 2 L nasal cannula. General description is an elderly male lying in bed in no distress. RESPIRATORY SYSTEM: Unlabored breathing, clear to auscultation anteriorly. HEART: S1, S2. Regular rate and rhythm. ABDOMEN: Soft, no tenderness. LABS: Hemoglobin is 11.3, white count 20.1, BUN of 40, creatinine 1.7. Blood culture with Klebsiella. Urine is pending. Ultrasound was negative for any cholecystitis or . DIAGNOSTIC IMPRESSION AND PLAN: Patient with Klebsiella bacteremia, source likely complicated urinary tract infection in this patient who did have a history of .Ultrasound was negative for any hydronephrosis. Continue with Rocephin 2 grams daily and monitor clinical course closely. MMODL / IJN: [id number] /
[2019-12-26 06:46] LABS: Glucose,Whole Blood 112 mg/dL (75-99)
[2019-12-26 07:05] LABS: Basophils % (A) 0 %; Eosinophils % (A) 0 %; HCT 33.3 % (39.0-53.0); HGB 10.6 gm/dL (13.0-17.5); Lymphocytes # (A) 0.8 k/uL (1.0-4.8); Lymphocytes % (A) 5 %; MCH 28.3 pg (25.0-35.0); MCHC 31.9 g/dL (31.0-37.0); MCV 88.8 fL (80.0-100.0); Mean Platelet Volume 7.3; Monocytes # (A) 0.6 k/uL (0-1.0); Monocytes % (A) 3 %; Neutrophils % (A) 91 %; Platelet Count 179 k/uL (150-450); RBC 3.75 m/uL (4.30-5.90); RDW 13.3 % (11.5-15.5); WBC 17.7 k/uL (3.8-10.6)
[2019-12-26] MEDS: SODIUM CHLORIDE 0.9% 1,000 ML IV SCH ×2 (07:20→21:17)
[2019-12-26] MEDS: INSULIN ASPART (NovoLOG) 100 UNIT/ML VIAL SQ SCH ×4 (07:21→21:07)
[2019-12-26] MEDS: METOPROLOL TARTRATE 25 MG TAB PO SCH ×2 (08:26→21:16)
[2019-12-26] MEDS: HEPARIN SODIUM,PORCINE 5,000 UNIT/ML 1 ML VIAL SQ SCH ×2 (08:26→21:16)
[2019-12-26] MEDS: MULTIVITAMINS, THERA 1 EACH TAB PO SCH (08:26)
[2019-12-26] MEDS: FOLIC ACID 1 MG TAB PO SCH (08:26)
[2019-12-26] MEDS: ARTIFICIAL TEARS OINTMENT 3.5 GM TUBE BOTH EYES SCH ×4 (08:26→21:16)
[2019-12-26] MEDS: ESCITALOPRAM 10 MG TAB PO SCH (08:26)
[2019-12-26] MEDS: ASPIRIN 81 MG PO SCH (08:26)
[2019-12-26] MEDS: PANTOPRAZOLE 40 MG TABLET PO SCH (08:26)
[2019-12-26] MEDS: THIAMINE 100 MG TAB PO SCH (08:26)
[2019-12-26 11:32] LABS: African American GFR (CKD) 67.7 (60.0-200.0); Albumin 2.9 g/dL (3.80-4.90); Albumin/Globulin Ratio 1.45 (1.60-3.17); Anion Gap 10.5 mmol/L (4.00-12.00); BUN/Creat Ratio 24.17 Ratio (12.00-20.00); Carbon Dioxide 24.5 mmol/L (21.6-31.8); Non-African American GFR(CKD) 58.4 (60.0-200.0); Potassium 3.8 mmol/L (3.5-5.5); Total Bilirubin 0.4 mg/dL (0.2-1.2); Total Protein 4.9 g/dL (6.2-8.2)
[2019-12-26 11:49] LABS: Glucose,Whole Blood 157 mg/dL (75-99)
[2019-12-26 13:26] LABS: Hemoglobin A1C 7.5 % (4.0-6.0)
--- NOTE | 2019-12-26 14:42 | PN ---
PROGRESS NOTE DATE OF SERVICE: 12/26/2019 REASON FOR FOLLOWUP: Klebsiella bacteremia secondary to urinary source. INTERVAL HISTORY: The patient is currently afebrile. The patient is feeling better today, he is breathing comfortably. Denies any chest pain, no cough, no nausea, no vomiting, no abdominal pain, no diarrhea. PHYSICAL EXAMINATION: Blood pressure is 130/65 with a pulse of 57, temperature 98.7. He is 94% on room air. General description is an elderly male, lying in bed in no distress. RESPIRATORY SYSTEM: Unlabored breathing, clear to auscultation anteriorly. HEART S1, S2. Regular rate and rhythm. ABDOMEN: Soft, no tenderness. LABS: Hemoglobin is 12.8, white count 8.7, BUN of 29, creatinine 1.2. Repeat blood culture so far negative. DIAGNOSTIC IMPRESSION AND PLAN: Patient with Klebsiella bacteremia secondary urinary source. Clinically responded to Zosyn to continue. Will monitor clinical course closely. Continue supportive care. MMODL / IJN: [id number] /
[2019-12-26 17:03] LABS: Glucose,Whole Blood 168 mg/dL (75-99)
[2019-12-26 20:59] LABS: Glucose,Whole Blood 120 mg/dL (75-99)
[2019-12-26] MEDS: INSULIN DETEMIR (LEVEMIR) 100 UNIT/ML SYR SQ SCH (21:16)
[2019-12-26] MEDS: TAMSULOSIN 0.4 MG CAP.ER.24H PO SCH (21:16)
[2019-12-26] MEDS: ATORVASTATIN 40 MG TAB PO SCH (21:16)
--- NOTE | 2019-12-27 01:30 | PN ---
PROGRESS NOTE DATE OF SERVICE: 12/26/2019 This 74-year-old gentleman who was admitted with possible UTI sepsis, Klebsiella pneumoniae grown from the culture. No chest pain. No palpitations. No fever. PHYSICAL EXAMINATION: Alert and oriented x2. Pulse 51, blood pressure 144/73, respirations 16, temperature 98.2, pulse ox 99% on room air. HEENT: Conjunctivae normal. NECK: No jugular venous distention. CARDIOVASCULAR: S1, S2 muffled. RESPIRATORY: Breath sounds diminished at the bases. No rhonchi, no crackles. ABDOMEN: Soft. LEGS: No edema, no swelling. NERVOUS SYSTEM: No focal deficits. LABS: WBC 17.7, hemoglobin 10.6. Accu-Cheks are noted. Creatine kinase 434. ASSESSMENT: 1. Acute urinary tract infection with sepsis with Klebsiella pneumoniae, present on admission. 2. Change in mental status, acute metabolic acidosis secondary to sepsis. 3. Fall and gait dysfunction. 4. Acute renal failure acute tubular necrosis, prerenal acute tubular necrosis. 5. Hyponatremia. 6. History of dementia. 7. Diabetes mellitus type 2, uncontrolled with hyperglycemia. 8. History of noncompliance. 9. Elevated creatine kinase and mild rhabdomyolysis. 10.Troponin 0.120, possibly secondary to rhabdomyolysis, rule out coronary artery disease. 11.Elevated WBC, possibly secondary to sepsis. 12.Elevated AST. 13.Gait dysfunction. 14.History of cerebrovascular accident, transient ischemic attack. 15.Hypertension. 16.Hyperlipidemia. 17.History of degenerative joint disease. 18.History of pneumonia. 19.History of a Jehovah Witness. 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 21.History of back surgery, degenerative joint disease. 22.History of blood transfusion and reaction apparently. 23.History of claustrophobia. 24.History of anxiety. 25.Remote history of nicotine dependence. 26.NO CODE, NO CPR, NO VENT. RECOMMENDATIONS AND DISCUSSION: I recommend to continue current medications, continue symptomatic treatment. Continue with antibiotics. Follow closely. Cultures are noted. Closely follow with Dr. Kowalski. Prognosis guarded. Further recommendations to follow. Possible discharge in the next 24 hours. MMODL / IJN: [id number] /
[2019-12-27 03:09] LABS: Glucose,Whole Blood 165 mg/dL (75-99)
[2019-12-27 06:53] LABS: Basophils % (A) 0 %; Eosinophils % (A) 0 %; HCT 33.3 % (39.0-53.0); HGB 10.9 gm/dL (13.0-17.5); Lymphocytes % (A) 7 %; MCH 29.3 pg (25.0-35.0); MCHC 32.8 g/dL (31.0-37.0); MCV 89.5 fL (80.0-100.0); Mean Platelet Volume 7.4; Monocytes # (A) 0.6 k/uL (0-1.0); Monocytes % (A) 5 %; Neutrophils % (A) 87 %; Platelet Count 200 k/uL (150-450); RBC 3.72 m/uL (4.30-5.90); RDW 13.4 % (11.5-15.5); WBC 13.8 k/uL (3.8-10.6)
[2019-12-27 07:02] LABS: Glucose,Whole Blood 113 mg/dL (75-99)
[2019-12-27] MEDS: INSULIN ASPART (NovoLOG) 100 UNIT/ML VIAL SQ SCH ×3 (07:29→17:27)
[2019-12-27 07:34] VITALS: TEMP 98.8
[2019-12-27] MEDS: MULTIVITAMINS, THERA 1 EACH TAB PO SCH (07:41)
[2019-12-27] MEDS: THIAMINE 100 MG TAB PO SCH (07:41)
[2019-12-27] MEDS: FOLIC ACID 1 MG TAB PO SCH (07:41)
[2019-12-27] MEDS: PANTOPRAZOLE 40 MG TABLET PO SCH (07:41)
[2019-12-27] MEDS: ASPIRIN 81 MG PO SCH (07:41)
[2019-12-27] MEDS: ARTIFICIAL TEARS OINTMENT 3.5 GM TUBE BOTH EYES SCH ×3 (07:42→16:31)
[2019-12-27] MEDS: METOPROLOL TARTRATE 25 MG TAB PO SCH (07:42)
[2019-12-27] MEDS: ESCITALOPRAM 10 MG TAB PO SCH (07:42)
[2019-12-27] MEDS: HEPARIN SODIUM,PORCINE 5,000 UNIT/ML 1 ML VIAL SQ SCH (07:42)
[2019-12-27] MEDS: SODIUM CHLORIDE 0.9% 1,000 ML IV SCH (07:42)
[2019-12-27 09:25] LABS: African American GFR (CKD) 75.2 (60.0-200.0); Albumin 2.9 g/dL (3.80-4.90); Albumin/Globulin Ratio 1.53 (1.60-3.17); Anion Gap 7.5 mmol/L (4.00-12.00); BUN/Creat Ratio 22.73 Ratio (12.00-20.00); Carbon Dioxide 25.5 mmol/L (21.6-31.8); Globulin 1.9 g/dL (1.6-3.3); Non-African American GFR(CKD) 64.9 (60.0-200.0); Potassium 3.7 mmol/L (3.5-5.5); Total Bilirubin 0.4 mg/dL (0.2-1.2); Total Protein 4.8 g/dL (6.2-8.2)
[2019-12-27 11:31] LABS: Glucose,Whole Blood 125 mg/dL (75-99)
[2019-12-27 15:24] VITALS: BP 141/74; PULSE 51; RESP 20
--- NOTE | 2019-12-27 16:16 | P.DS ---
Providers Date of admission: 12/24/19 00:40 Attending physician: Celeste Gomes Consults: 12/24/19 13:12 Consult Physician Routine Consulting Provider: Cary Kowalski Consult Reason/Comments: positive blood cultures Do you want consulting provider notified?: Yes Primary care physician: Pal Flores [place] Hospital Course: Patient is a pleasant 74-year-old gentleman was admitted secondary to UTI, sepsis, bacteremia. Patient has Klebsiella in the urine this is sensitive to multiple antibiotics patient will be discharged on Ceftin 500 mg twice a day for 10 more days comparing total 14 day of therapy for bacteremia. Patient was also diagnosed with the congestive heart failure EF around 45-50% patient is not in acute exacerbation patient was started on beta kendra because of frequent PVCs but patient didn't tolerate this medication patient was having just severe fatigue secondary to this and patient also became significantly bradycardic today morning because of which I'll discontinue the beta kendra by although patient does take ADAMA inhibitor at home which will be resumed. PHYSICAL EXAMINATION: GENERAL: The patient is alert and oriented x3, not in any acute distress. Well developed, well nourished. HEENT: Pupils are round and equally reacting to light. EOMI. No scleral icterus. No conjunctival pallor. Normocephalic, atraumatic. No pharyngeal erythema. No thyromegaly. CARDIOVASCULAR: S1 and S2 present. No murmurs, rubs, or gallops. PULMONARY: Chest is clear to auscultation, no wheezing or crackles. ABDOMEN: Soft, nontender, nondistended, normoactive bowel sounds. No palpable organomegaly. MUSCULOSKELETAL: No joint swelling or deformity. EXTREMITIES: No cyanosis, clubbing, or pedal edema. NEUROLOGICAL: Gross neurological examination did not reveal any focal deficits. SKIN: No rashes. -Urinary tract infection, bacteremia, sepsis secondary to Klebsiella pneumoniae UTI area -Can start failure chronic systolic dysfunction without any acute exacerbation -acute renal failure renal azotemia improved now -Possible chronic kidney disease stage II. -Hypovolemic hyponatremia resolved The rest of the medical problems and hospital physician course please refer to documentation a progress note from Dr. Gomes from yesterday Patient Condition at Discharge: Stable Plan - Discharge Summary Discharge Rx Participant: Yes New Discharge Prescriptions: New Cefuroxime Axetil [Ceftin] 500 mg PO BID 10 Days #20 tab Multivitamins, Thera [Multivitamin (formulary)] 1 each PO DAILY@1200 #30 tab Insulin Detemir (Levemir) [Levemir] 15 unit SQ HS #1 syr Continue Atorvastatin [Lipitor] 40 mg PO HS #30 tab Tamsulosin [Flomax] 0.4 mg PO HS Artificial Tears Ointment [Lubrifresh Pm Ointment] 1 gm OPHTHALMIC QID #1 tube Aspirin 81 mg PO DAILY #30 chewable Ketoconazole 2% Cream [Nizoral 2%] 1 applic TOPICAL DAILY PRN PRN Reason: Rash Insulin Lispro [humaLOG Kwikpen] See Protocol SQ ACHS Escitalopram [Lexapro] 10 mg PO DAILY LORazepam [Ativan] 0.25 - 0.5 mg PO DAILY PRN PRN Reason: Anxiety Changed Lisinopril [Prinivil] 5 mg PO DAILY #0 Discontinued metFORMIN HCL [Glucophage] 1,000 mg PO AC-BID Discharge Medication List Atorvastatin [Lipitor] 40 mg PO HS #30 tab 06/18/17 [Rx] Tamsulosin [Flomax] 0.4 mg PO HS 07/12/19 [History] Artificial Tears Ointment [Lubrifresh Pm Ointment] 1 gm OPHTHALMIC QID #1 tube 07/13/19 [Rx] Aspirin 81 mg PO DAILY #30 chewable 07/13/19 [Rx] Escitalopram [Lexapro] 10 mg PO DAILY 12/23/19 [History] Insulin Lispro [humaLOG Kwikpen] See Protocol SQ ACHS 12/23/19 [History] Ketoconazole 2% Cream [Nizoral 2%] 1 applic TOPICAL DAILY PRN 12/23/19 [History] LORazepam [Ativan] 0.25 - 0.5 mg PO DAILY PRN 12/23/19 [History] Cefuroxime Axetil [Ceftin] 500 mg PO BID 10 Days #20 tab 12/27/19 [Rx] Insulin Detemir (Levemir) [Levemir] 15 unit SQ HS #1 syr 12/27/19 [Rx] Lisinopril [Prinivil] 5 mg PO DAILY #0 12/27/19 [Rx] Multivitamins, Thera [Multivitamin (formulary)] 1 each PO DAILY@1200 #30 tab 12/27/19 [Rx] Follow up Appointment(s)/Referral(s): Cary Kowalski MD [STAFF PHYSICIAN] - 1 Week Mark Aguillon MD [Primary Care Provider] - 3 Days Discharge Disposition: HOME SELF-CARE
--- NOTE | 2019-12-27 16:21 | PN ---
PROGRESS NOTE DATE OF SERVICE: 12/27/2019 REASON FOR FOLLOWUP: Klebsiella UTI and bacteremia. INTERVAL HISTORY: The patient is currently afebrile. The patient is feeling better, breathing comfortably. Denies having any chest pain or cough. No nausea, no vomiting, no abdominal pain or diarrhea. PHYSICAL EXAMINATION: Blood pressure 141/74 with a pulse of 51, temperature 98.8. He is 93% on room air. General description is an elderly male lying in bed in no distress. RESPIRATORY SYSTEM: Unlabored breathing. Clear to auscultation anteriorly. HEART: S1, S2. Regular rate and rhythm. ABDOMEN: Soft. No tenderness. LABS: Hemoglobin is 10.9, white count 13.8, BUN of 25, creatinine is 1.1. DIAGNOSTIC IMPRESSION AND PLAN: Patient with Klebsiella pneumoniae bacteremia secondary to urinary source. Ultrasound did not identify any hydronephrosis. Patient has overall improvement on Rocephin. Finish therapy with oral Ceftin 500 mg for 10 days and close outpatient followup. MMODL / IJN: [id number] /
[2019-12-27 16:59] LABS: Glucose,Whole Blood 176 mg/dL (75-99)
[2019-12-27] MEDS ORDERED: METOPROLOL TARTRATE 12.5 MG TAB PO SCH (21:00)
== END 2019-12-27 19:19 | disposition home or self-care (01) | DRG 871 ==
LOC: EC 20:33 → 4SSUR 12-24 00:40
PROVIDERS: ADMIT Hospitalist; ATTEND Hospitalist
DX: A41.59 Other Gram-negative sepsis (principal); G93.41 Metabolic encephalopathy; N17.0 Acute kidney failure with tubular necrosis; E87.1 Hypo-osmolality and hyponatremia; E87.2 Acidosis; I13.0 Hypertensive heart and chronic kidney disease with heart failure and stage 1 through stage 4 chronic kidney disease, or unspecified chronic kidney disease; I42.9 Cardiomyopathy, unspecified; N39.0 Urinary tract infection, site not specified; I50.22 Chronic systolic (congestive) heart failure; B96.1 Klebsiella pneumoniae [K. pneumoniae] as the cause of diseases classified elsewhere; E11.22 Type 2 diabetes mellitus with diabetic chronic kidney disease; E11.65 Type 2 diabetes mellitus with hyperglycemia; E78.5 Hyperlipidemia, unspecified; F03.90 Unspecified dementia, unspecified severity, without behavioral disturbance, psychotic disturbance, mood disturbance, and anxiety; F40.240 Claustrophobia; I49.3 Ventricular premature depolarization; I50.9 Heart failure, unspecified; M19.90 Unspecified osteoarthritis, unspecified site; N18.9 Chronic kidney disease, unspecified; R65.20 Severe sepsis without septic shock; Z20.828 Contact with and (suspected) exposure to other viral communicable diseases; Z66 Do not resuscitate; W18.12XA Fall from or off toilet with subsequent striking against object, initial encounter; Y92.002 Bathroom of unspecified non-institutional (private) residence as the place of occurrence of the external cause; S80.212A Abrasion, left knee, initial encounter; R26.9 Unspecified abnormalities of gait and mobility; T79.6XXA Traumatic ischemia of muscle, initial encounter; F41.9 Anxiety disorder, unspecified; R79.89 Other specified abnormal findings of blood chemistry; N42.9 Disorder of prostate, unspecified; T46.1X5A Adverse effect of calcium-channel blockers, initial encounter; Z90.89 Acquired absence of other organs; Z98.49 Cataract extraction status, unspecified eye; Z87.01 Personal history of pneumonia (recurrent); Z79.4 Long term (current) use of insulin; Z79.82 Long term (current) use of aspirin; Z79.899 Other long term (current) drug therapy; Z86.73 Personal history of transient ischemic attack (TIA), and cerebral infarction without residual deficits; Z87.891 Personal history of nicotine dependence; Z90.49 Acquired absence of other specified parts of digestive tract; Z91.19 Patient's noncompliance with other medical treatment and regimen; Z96.653 Presence of artificial knee joint, bilateral; Z82.49 Family history of ischemic heart disease and other diseases of the circulatory system; Z80.9 Family history of malignant neoplasm, unspecified; Z81.3 Family history of other psychoactive substance abuse and dependence; Z82.0 Family history of epilepsy and other diseases of the nervous system; Z88.1 Allergy status to other antibiotic agents; Z88.5 Allergy status to narcotic agent; Z88.8 Allergy status to other drugs, medicaments and biological substances
CPT/HCPCS: 36415; 70450; 71046; 72125; 76700; 80048; 80053; 80320; 80329; 81001; 82550; 83036; 83520; 83605; 84484; 85025; 85610; 85730; 87040; 87077; 87086; 87186; 93005; 93306; 94760; 96374; 99285

== ENCOUNTER 2020-01-10 09:09 | Inpatient (IN) | payer MEDICARE ==
[2020-01-10] MEDS ORDERED: SODIUM CHLORIDE 0.9% 1,000 ML IV STA (09:15)
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
[2020-01-10 09:59] LABS: Albumin 3.5 g/dL (3.5-5.0); Calcium 9.3 mg/dL (8.4-10.2); Magnesium 1.4 mg/dL (1.6-2.3); Potassium 5.2 mmol/L (3.5-5.1); Total Bilirubin 1.1 mg/dL (0.2-1.3); Total Protein 6.9 g/dL (6.3-8.2)
--- NOTE | 2020-01-10 09:59 | XR ---
EXAMINATION TYPE: XR chest 2V DATE OF EXAM: 01/10/2020 COMPARISON: 12/23/2019 HISTORY: 74-year-old male with chest pain TECHNIQUE: AP and lateral views FINDINGS: Slightly low lung volumes. Slight crowded vascular markings. Heart upper limits of normal in size. No consolidation, pneumothorax, or pleural effusion. IMPRESSION: Some hypoventilatory changes. No definite acute process.
[2020-01-10 10:07] LABS: INR 1.3 (<1.2); Partial Thromboplastin Time 28.4 sec (22.0-30.0); Prothrombin Time 13.1 sec (9.0-12.0)
[2020-01-10 10:20] LABS: Basophils # (A) 0.1 k/uL (0-0.2); Basophils % (A) 0 %; Eosinophils # (A) 0.1 k/uL (0-0.7); Eosinophils % (A) 0 %; HCT 39.7 % (39.0-53.0); HGB 12.4 gm/dL (13.0-17.5); Lymphocytes # (A) 0.4 k/uL (1.0-4.8); Lymphocytes % (A) 1 %; MCH 28.4 pg (25.0-35.0); MCHC 31.3 g/dL (31.0-37.0); MCV 90.8 fL (80.0-100.0); Mean Platelet Volume 7.5; Monocytes # (A) 1.2 k/uL (0-1.0); Monocytes % (A) 3 %; Neutrophils # (A) 38.1 k/uL (1.3-7.7); Neutrophils % (A) 96 %; RBC 4.37 m/uL (4.30-5.90); RDW 13.8 % (11.5-15.5)
[2020-01-10 10:23] LABS: WBC 39.9 k/uL (3.8-10.6)
[2020-01-10 10:24] LABS: Platelet Count 416 k/uL (150-450)
[2020-01-10 10:32] LABS: Toxic Granulation Present
[2020-01-10 14:44] LABS: Appearance,Urine Cloudy (Clear); Bacteria,Urine Many /hpf; Bilirubin,Urine Negative (Negative); Blood,Urine Moderate (Negative); Color,Urine Yellow; Glucose,Urine (UA) Negative (Negative); Ketones,Urine Negative (Negative); Leukocyte Esterase,Urine Large (Negative); Mucus,Urine Rare /hpf; Nitrite,Urine Negative (Negative); PH, Urine 5.5 (5.0-8.0); Protein,Urine 2+ (Negative); RBC,Urine 1 /hpf (0-5); Specific Gravity,Urine 1.017 (1.001-1.035); Urobilinogen,Urine <2.0 mg/dL (<2.0); WBC,Urine 77 /hpf (0-5)
[2020-01-10] MEDS ORDERED: cefTRIAXone IN SWFI 1,000 MG/10 ML SYRINGE IVP STA ×2 (15:11→15:13)
[2020-01-10] MEDS ORDERED: SODIUM CHLORIDE 0.9% 1,000 ML IV ONE ×2 (15:13→15:18)
[2020-01-10] MEDS: ACETAMINOPHEN TAB 325 MG TAB PO PRN (19:19)
[2020-01-10 20:32] LABS: Glucose,Whole Blood 190 mg/dL (75-99)
[2020-01-10] MEDS: TAMSULOSIN 0.4 MG CAP.ER.24H PO SCH (23:26)
[2020-01-10] MEDS: INSULIN DETEMIR (LEVEMIR) 100 UNIT/ML SYR SQ SCH (23:26)
[2020-01-10] MEDS: SODIUM CHLORIDE 0.9% 1,000 ML IV SCH (23:26)
[2020-01-11 06:12] LABS: Glucose,Whole Blood 153 mg/dL (75-99)
[2020-01-11] MEDS: INSULIN ASPART (NovoLOG) 100 UNIT/ML VIAL SQ SCH ×4 (06:41→23:11)
[2020-01-11] MEDS ORDERED: Magnesium Replacement Protocol 1 EACH MISC MISCELLANE PRN (07:50)
[2020-01-11 07:53] LABS: Basophils % (A) 0 %; Eosinophils # (A) 0.1 k/uL (0-0.7); Eosinophils % (A) 1 %; HCT 32.1 % (39.0-53.0); HGB 10.2 gm/dL (13.0-17.5); Lymphocytes # (A) 0.5 k/uL (1.0-4.8); Lymphocytes % (A) 2 %; MCH 28.9 pg (25.0-35.0); MCHC 31.9 g/dL (31.0-37.0); MCV 90.5 fL (80.0-100.0); Mean Platelet Volume 7.3; Monocytes # (A) 0.5 k/uL (0-1.0); Monocytes % (A) 3 %; Neutrophils # (A) 19.7 k/uL (1.3-7.7); Neutrophils % (A) 94 %; Platelet Count 258 k/uL (150-450); RBC 3.54 m/uL (4.30-5.90); RDW 13.4 % (11.5-15.5); WBC 20.9 k/uL (3.8-10.6)
[2020-01-11 08:06] LABS: Calcium 7.9 mg/dL (8.4-10.2); Potassium 4.2 mmol/L (3.5-5.1)
[2020-01-11] MEDS: HEPARIN SODIUM,PORCINE 5,000 UNIT/ML 1 ML VIAL SQ SCH ×2 (08:53→23:11)
[2020-01-11] MEDS: MAGNESIUM SULFATE-D5W PMX 1 GM in DEXTROSE/WATER 1 100ML.BAG IVPB SCH ×3 (08:54→11:31)
[2020-01-11] MEDS: SODIUM CHLORIDE 0.9% 1,000 ML IV SCH ×2 (08:54→16:36)
[2020-01-11] MEDS ORDERED: FAMOTIDINE 20 MG/2 ML VIAL IV SCH (09:00)
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
[2020-01-11] MEDS: MULTIVITAMINS, THERA 1 EACH TAB PO SCH (11:31)
[2020-01-11 11:44] LABS: Glucose,Whole Blood 204 mg/dL (75-99)
--- NOTE | 2020-01-11 12:08 | CONS ---
CONSULTATION REASON FOR CONSULT: Renal failure. HISTORY OF PRESENT ILLNESS: Patient is a 74-year-old male who was admitted to the hospital with history of fall. He denies prior history of kidney diseases. Patient has a prior history of type 2 diabetes, hypertension, CVA, history of Johnson's palsy x3. Patient stated that he has been feeling weak and has not been able to get around much at home and he fell. No significant complaints of diarrhea, nausea or vomiting. However, patient stated that he has not been eating much. The patient was recently hospitalized 12/23 to 12/30 for UTI, confusion and had Klebsiella bacteremia and was treated with antibiotics. Patient also has cardiomyopathy EF 45% to 50%. His serum creatinine this admission was 2.5. It is down to 2.2 mg/dL. PERVIOUS LABS: Show creatinine 1.1 on 12/27/2019. Patient is currently maintained on IV fluids. His blood pressure was slightly on the lower side with systolic around 105, although I do see stenting of 89 mmHg systolic. Patient has been voiding. He had an ultrasound done on 12/25/2019 which did not show any hydronephrosis. PAST MEDICAL HISTORY: Hypertension, type 2 diabetes, history of CVA, TIA, recent UTI, confusion, Klebsiella bacteremia, history of Johnson's palsy x3, osteoarthritis, BPH. The patient is a [place], diverticulosis. PAST SURGICAL HISTORY: Appendectomy, back surgery, tonsillectomy, amputation second toe on the left, bilateral knee arthroplasties, cataract surgery, colonoscopy. SOCIAL HISTORY: Negative for smoking, drug abuse or alcohol abuse. MEDICATIONS: Prior to admission included Lipitor, Flomax, Lexapro, insulin, Prinivil, multivitamins. ALLERGIES: Include CODEINE, BENADRYL, IODINE, MORPHINE, TETRACYCLINE. REVIEW OF SYSTEMS: As per HPI. Other systems negative. PHYSICAL EXAMINATION: Patient is comfortable, awake, not in any acute distress. Alert and oriented x3. Blood pressure 134/61, heart rate of 95 per minute, patient has a fever of 100.7 degrees Fahrenheit. Examination of the heart S1, S2. Examination of the lungs, bilateral breath sounds are heard. Abdomen is soft, nontender. Examination of the lower extremities shows no significant edema. 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 Patient moving all 4 extremities. LABS: Show sodium 135, potassium 4.2, chloride 106, CO2 is 22, BUN 46, creatinine 2.2, hemoglobin 10.2 g/dL. Magnesium 1.5. UA shows WBCs 77, large leukocyte esterase, 2+ protein, moderate blood. ASSESSMENT: 1. Acute kidney injury associated with hypotension, hypoperfusion and hypovolemia, currently maintained on IV fluids. Renal function is improving. Check postvoid residual rule out urine retention. Previous ultrasound on 12/27/2019 did not show any evidence of hydronephrosis. 2. Recent UTI with Klebsiella pneumoniae and bacteremia and urinary tract infection on 12/24/2019, status post antibiotics current UA showing significant pyuria again. Patient is also febrile. Repeat urine culture is pending. 3. Chronic kidney disease. Baseline creatinine about 1.1 mg/dL most likely secondary to diabetic kidney disease and nephrosclerosis. UA shows proteinuria; however, patient has a urinary tract infection currently. 4. Cardiomyopathy, ejection fraction 45% to 50%. 5. Osteoarthritis status post bilateral knee arthroplasties. 6. Hypertension, blood pressure currently low. PLAN: Continue off ADAMA inhibitors. Continue with IV fluids continue and empiric antibiotics follow up on urine cultures and blood cultures. Continue Flomax. Check random check a postvoid residual and repeat labs in a.m. Continue to avoid nephrotoxic agents. Thank you for this consultation. Will continue to follow the patient with you during his hospitalization. MMODL / IJN: [id number] /
--- NOTE | 2020-01-11 12:10 | US ---
EXAMINATION TYPE: US renals and bladder DATE OF EXAM: 01/11/2020 COMPARISON: US 12/25/2019 CLINICAL HISTORY: uti with bacteremia . EXAM MEASUREMENTS: Right Kidney: 12.5 x 7.3 x 6.2 cm Left Kidney: 10.8 x 5.9 x 5.5 cm Right Kidney: Question some mild pelvic caliectasis, prominent column of Mina Left Kidney: no hydronephrosis, 1.9cm hypoechoic area inferior pole shows increased through transmis ying, imperceptible wall, is anechoic Bladder: wnl Bilateral Jets seen: no There is no evidence for assigning hydronephrosis at this point in time. No nephrolithiasis is seen. No solid masses are identified. The urinary bladder is anechoic. IMPRESSION: Simple cyst lower pole left kidney. Question some mild hydronephrosis right kidney
[2020-01-11] MEDS: ACETAMINOPHEN TAB 325 MG TAB PO PRN (13:35)
[2020-01-11] MEDS: FAMOTIDINE 20 MG TAB PO SCH (16:34)
[2020-01-11 16:42] LABS: Glucose,Whole Blood 143 mg/dL (75-99)
[2020-01-11 20:20] LABS: Glucose,Whole Blood 142 mg/dL (75-99)
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
[2020-01-11 21:57] LABS: Glucose,Whole Blood 188 mg/dL (75-99)
[2020-01-11] MEDS: INSULIN DETEMIR (LEVEMIR) 100 UNIT/ML SYR SQ SCH (23:11)
[2020-01-11] MEDS: ATORVASTATIN 40 MG TAB PO SCH (23:11)
[2020-01-11] MEDS: TAMSULOSIN 0.4 MG CAP.ER.24H PO SCH (23:12)
[2020-01-12] MEDS: SODIUM CHLORIDE 0.9% 1,000 ML IV SCH ×4 (05:52→23:42)
[2020-01-12 06:38] LABS: Basophils % (A) 0 %; Eosinophils % (A) 0 %; HGB 9.8 gm/dL (13.0-17.5); Lymphocytes # (A) 0.6 k/uL (1.0-4.8); Lymphocytes % (A) 4 %; MCH 28.6 pg (25.0-35.0); MCHC 31.7 g/dL (31.0-37.0); MCV 90.1 fL (80.0-100.0); Mean Platelet Volume 7.1; Monocytes # (A) 0.4 k/uL (0-1.0); Monocytes % (A) 3 %; Neutrophils # (A) 13.6 k/uL (1.3-7.7); Neutrophils % (A) 92 %; Platelet Count 223 k/uL (150-450); RBC 3.44 m/uL (4.30-5.90); RDW 13.4 % (11.5-15.5); WBC 14.7 k/uL (3.8-10.6)
[2020-01-12 07:01] LABS: Glucose,Whole Blood 91 mg/dL (75-99)
[2020-01-12] MEDS: INSULIN ASPART (NovoLOG) 100 UNIT/ML VIAL SQ SCH ×4 (07:07→20:58)
[2020-01-12] MEDS: MULTIVITAMINS, THERA 1 EACH TAB PO SCH (07:58)
[2020-01-12] MEDS: FAMOTIDINE 20 MG TAB PO SCH (07:58)
[2020-01-12] MEDS: HEPARIN SODIUM,PORCINE 5,000 UNIT/ML 1 ML VIAL SQ SCH ×2 (07:58→20:58)
--- NOTE | 2020-01-12 08:38 | P.PN ---
Progress Note - Text Progress Note Date: 01/12/20 the patient's temperature has been less than 100 since yesterday. He is much more alert and I was able to discuss his history with him much easier. He is tolerating a diet and says that he is hungry. White blood count has improved and is 14,700. BUN and creatinine are pending. Preliminary blood culture and urine cultures are growing a gram-negative negative rahel. During the patient's last hospitalization he was treated with IV ceftriaxone due to his bacteremia/urinary tract infection. He was discharged on Ceftin which would have been adequate for an uncomplicated urinary tract infection but unfortunately does not achieve high blood levels to adequately treat bacteremia. This may be the reason that the patient's infection relapsed. I would suggest the patient remain on Rocephin pending results of his culture. He would then either need IV Rocephin through a PICC line for a total of 14 days or possibly a quinolone like levofloxacin or ciprofloxacin which would achieve adequate blood levels when given orally.
[2020-01-12 09:53] LABS: African American GFR (CKD) 44.4 (60.0-200.0); Anion Gap 7.2 mmol/L (4.00-12.00); BUN/Creat Ratio 22.35 Ratio (12.00-20.00); Calcium 7.6 mg/dL (8.7-10.3); Carbon Dioxide 21.8 mmol/L (21.6-31.8); Non-African American GFR(CKD) 38.3 (60.0-200.0)
[2020-01-12 11:42] LABS: Glucose,Whole Blood 158 mg/dL (75-99)
--- NOTE | 2020-01-12 12:26 | P.PN ---
Subjective Patient is seen in follow-up for acute kidney injury. Renal function continues to improve. Good urine output. No vomiting or diarrhea. Oral intake improving. He is maintained on IV antibiotics for gram-negative bacilli bacteremia and UTI. Denies any hematuria or dysuria. Vital signs are stable. General: The patient appeared well nourished and normally developed. HEENT: Head exam is unremarkable. Neck is without jugular venous distension. LUNGS: Breath sounds decreased. HEART: Rate and Rhythm are regular. ABDOMEN: Soft, nontender. EXTREMITITES: No clubbing, cyanosis, or edema. Objective - Vital Signs Vital signs: Vital Signs Temp 98.7 F 01/12/20 12:13 Pulse 76 01/12/20 12:13 Resp 20 01/12/20 12:13 BP 167/71 01/12/20 12:13 Pulse Ox 98 01/12/20 12:13 Intake & Output 01/11/20 01/12/20 01/12/20 18:59 06:59 18:59 Intake Total 360 1300 240 Output Total 0 Balance 360 1300 240 Intake: Intake, IV Titration 1300 Amount Sodium Chloride 0.9% 1, 1300 000 ml @ 130 mls/hr IV . Q7H42M [facility] Rx#:[id number] Oral 360 240 Output: Post Void Residual 0 Other: Voiding Method Urinal Incontinent # Voids 1 # Bowel Movements 1 - Labs CBC & Chem 7: 01/12/20 06:15 01/12/20 06:15 Labs: Abnormal Lab Results - Last 24 Hours (Table) 01/11/20 01/11/20 01/11/20 Range/Units 16:39 20:19 21:56 WBC (3.8-10.6) k/uL RBC (4.30-5.90) m/uL Hgb (13.0-17.5) gm/dL Hct (39.0-53.0) % Neutrophils # (1.3-7.7) k/uL Lymphocytes # (1.0-4.8) k/uL Sodium (135-145) mmol/L BUN (9.0-27.0) mg/dL Creatinine (0.6-1.5) mg/dL Est GFR (CKD-EPI)AfAm (60.0-200.0) Est GFR (CKD-EPI)NonAf (60.0-200.0) BUN/Creatinine Ratio (12.00-20.00) Ratio POC Glucose (mg/dL) 143 H 142 H 188 H (75-99) mg/dL Calcium (8.7-10.3) mg/dL 01/12/20 01/12/20 01/12/20 Range/Units 06:15 06:15 11:21 WBC 14.7 H (3.8-10.6) k/uL RBC 3.44 L (4.30-5.90) m/uL Hgb 9.8 L (13.0-17.5) gm/dL Hct 31.0 L (39.0-53.0) % Neutrophils # 13.6 H (1.3-7.7) k/uL Lymphocytes # 0.6 L (1.0-4.8) k/uL Sodium 134 L (135-145) mmol/L BUN 38.0 H (9.0-27.0) mg/dL Creatinine 1.7 H (0.6-1.5) mg/dL Est GFR (CKD-EPI)AfAm 44.4 L (60.0-200.0) Est GFR (CKD-EPI)NonAf 38.3 L (60.0-200.0) BUN/Creatinine Ratio 22.35 H (12.00-20.00) Ratio POC Glucose (mg/dL) 158 H (75-99) mg/dL Calcium 7.6 L (8.7-10.3) mg/dL Microbiology - Last 24 Hours (Table) 01/10/20 15:51 Blood Culture Gram Stain - Preliminary Blood Blood Culture - Preliminary Gram Neg Bacilli 01/10/20 09:30 Urine Culture - Preliminary Urine,Voided Gram Neg Bacilli Assessment and Plan Plan: Assessment: 1. Acute kidney injury mostly prerenal secondary to hypotension and infection. Improving with IV hydration. Creatinine down to 1.7 today. No evidence of hydronephrosis noted on kidney ultrasound. 2. Gram-negative bacilli bacteremia and UTI maintained on antibiotics. 3. Rule out chronic kidney disease. Creatinine was 1.1 as of 12/27/2019. 4. Diabetes mellitus. 5. Benign hypertension. Plan: Decrease normal saline to 70 mL an hour. Encouraged oral intake. Avoid nephrotoxins. Continue to hold lisinopril for now. Add amlodipine 5 mg once daily. To hold for systolic blood pressure less than 120. Repeat electrolytes in the morning.
[2020-01-12] MEDS: amLODIPine 5 MG TAB PO SCH (13:32)
[2020-01-12 17:10] LABS: Glucose,Whole Blood 224 mg/dL (75-99)
[2020-01-12 20:47] LABS: Glucose,Whole Blood 177 mg/dL (75-99)
[2020-01-12] MEDS: ATORVASTATIN 40 MG TAB PO SCH (20:57)
[2020-01-12] MEDS: TAMSULOSIN 0.4 MG CAP.ER.24H PO SCH (20:58)
[2020-01-12] MEDS: ACETAMINOPHEN TAB 325 MG TAB PO PRN (20:58)
[2020-01-12] MEDS: INSULIN DETEMIR (LEVEMIR) 100 UNIT/ML SYR SQ SCH (20:58)
[2020-01-13 05:57] LABS: Basophils % (A) 0 %; Eosinophils % (A) 0 %; HCT 34.5 % (39.0-53.0); HGB 10.6 gm/dL (13.0-17.5); Hypochromasia Moderate; Lymphocytes # (A) 0.7 k/uL (1.0-4.8); Lymphocytes % (A) 5 %; MCH 28.3 pg (25.0-35.0); MCHC 30.8 g/dL (31.0-37.0); MCV 91.9 fL (80.0-100.0); Monocytes # (A) 0.6 k/uL (0-1.0); Monocytes % (A) 4 %; Neutrophils # (A) 12.5 k/uL (1.3-7.7); Neutrophils % (A) 90 %; Platelet Count 226 k/uL (150-450); RBC 3.75 m/uL (4.30-5.90); RDW 13.6 % (11.5-15.5); WBC 13.9 k/uL (3.8-10.6)
[2020-01-13 07:26] LABS: Glucose,Whole Blood 162 mg/dL (75-99)
[2020-01-13] MEDS: HEPARIN SODIUM,PORCINE 5,000 UNIT/ML 1 ML VIAL SQ SCH ×2 (07:54→20:37)
[2020-01-13] MEDS: INSULIN ASPART (NovoLOG) 100 UNIT/ML VIAL SQ SCH ×4 (07:54→21:16)
[2020-01-13] MEDS: FAMOTIDINE 20 MG TAB PO SCH (07:54)
[2020-01-13] MEDS: amLODIPine 5 MG TAB PO SCH ×2 (07:54→20:37)
[2020-01-13] MEDS: MULTIVITAMINS, THERA 1 EACH TAB PO SCH (07:54)
[2020-01-13 10:06] LABS: African American GFR (CKD) 47.8 (60.0-200.0); BUN/Creat Ratio 20.63 Ratio (12.00-20.00); Magnesium 1.7 mg/dL (1.5-2.4); Non-African American GFR(CKD) 41.2 (60.0-200.0); Potassium 4.1 mmol/L (3.5-5.5)
--- NOTE | 2020-01-13 10:48 | P.PN ---
Subjective Patient is seen in follow-up for acute kidney injury. Renal function continues to improve. Good urine output. No vomiting or diarrhea. Oral intake improving. He is maintained on IV antibiotics for Klebsiella bacteremia and UTI. Denies any hematuria or dysuria. No chest pain or shortness of breath. Vital signs are stable. General: The patient appeared well nourished and normally developed. HEENT: Head exam is unremarkable. Neck is without jugular venous distension. LUNGS: Breath sounds decreased. HEART: Rate and Rhythm are regular. ABDOMEN: Soft, nontender. EXTREMITITES: No edema. Objective - Vital Signs Vital signs: Vital Signs Temp 97.9 F 01/13/20 05:00 Pulse 74 01/13/20 05:00 Resp 20 01/13/20 05:00 BP 170/81 01/13/20 05:00 Pulse Ox 99 01/13/20 05:00 Intake & Output 01/12/20 01/13/20 01/13/20 18:59 06:59 18:59 Intake Total 1230 1930 Balance 1230 1930 Intake: Intake, IV Titration 540 840 Amount Sodium Chloride 0.9% 1, 540 840 000 ml @ 70 mls/hr IV . [id number] [facility] Rx#:[id number] Oral 690 1090 Other: Voiding Method Urinal Urinal Urinal Incontinent Incontinent Incontinent # Voids 1 1 # Bowel Movements 1 - Labs CBC & Chem 7: 01/13/20 05:38 01/13/20 05:38 Labs: Abnormal Lab Results - Last 24 Hours (Table) 01/12/20 01/12/20 01/12/20 Range/Units 11:21 17:09 20:46 WBC (3.8-10.6) k/uL RBC (4.30-5.90) m/uL Hgb (13.0-17.5) gm/dL Hct (39.0-53.0) % MCHC (31.0-37.0) g/dL Neutrophils # (1.3-7.7) k/uL Lymphocytes # (1.0-4.8) k/uL BUN (9.0-27.0) mg/dL Creatinine (0.6-1.5) mg/dL Est GFR (CKD-EPI)AfAm (60.0-200.0) Est GFR (CKD-EPI)NonAf (60.0-200.0) BUN/Creatinine Ratio (12.00-20.00) Ratio Glucose (70-110) mg/dL POC Glucose (mg/dL) 158 H 224 H 177 H (75-99) mg/dL Calcium (8.7-10.3) mg/dL 01/13/20 01/13/20 01/13/20 Range/Units 05:38 05:38 07:24 WBC 13.9 H (3.8-10.6) k/uL RBC 3.75 L (4.30-5.90) m/uL Hgb 10.6 L (13.0-17.5) gm/dL Hct 34.5 L (39.0-53.0) % MCHC 30.8 L (31.0-37.0) g/dL Neutrophils # 12.5 H (1.3-7.7) k/uL Lymphocytes # 0.7 L (1.0-4.8) k/uL BUN 33.0 H (9.0-27.0) mg/dL Creatinine 1.6 H (0.6-1.5) mg/dL Est GFR (CKD-EPI)AfAm 47.8 L (60.0-200.0) Est GFR (CKD-EPI)NonAf 41.2 L (60.0-200.0) BUN/Creatinine Ratio 20.63 H (12.00-20.00) Ratio Glucose 142 H (70-110) mg/dL POC Glucose (mg/dL) 162 H (75-99) mg/dL Calcium 8.0 L (8.7-10.3) mg/dL Microbiology - Last 24 Hours (Table) 01/10/20 15:51 Blood Culture Gram Stain - Final Blood Blood Culture - Final Klebsiella pneumoniae 01/10/20 09:30 Urine Culture - Final Urine,Voided Klebsiella pneumoniae Assessment and Plan Plan: Assessment: 1. Acute kidney injury mostly prerenal secondary to hypotension and infection. Improving with IV hydration. Creatinine down to 1.6 today. No evidence of hyd ronephrosis noted on kidney ultrasound. 2. Klebsiella bacteremia and UTI maintained on antibiotics. 3. Rule out chronic kidney disease. Creatinine was 1.1 as of 12/27/2019. 4. Diabetes mellitus. 5. Benign hypertension. Plan: Decrease normal saline to 50 mL an hour. Encouraged oral intake. Avoid nephrotoxins. Continue to hold lisinopril for now. Increase amlodipine to 5 mg twice daily - To hold for systolic blood pressure less than 120. Repeat electrolytes in the morning.
[2020-01-13 11:45] LABS: Glucose,Whole Blood 224 mg/dL (75-99)
[2020-01-13 15:20] LABS: Partial Thromboplastin Time 25.8 sec (22.0-30.0)
[2020-01-13 16:50] LABS: Glucose,Whole Blood 138 mg/dL (75-99)
[2020-01-13] MEDS: SODIUM CHLORIDE 0.9% 1,000 ML IV SCH (17:04)
[2020-01-13] MEDS: INSULIN DETEMIR (LEVEMIR) 100 UNIT/ML SYR SQ SCH (20:37)
[2020-01-13] MEDS: TAMSULOSIN 0.4 MG CAP.ER.24H PO SCH (20:38)
[2020-01-13] MEDS: ATORVASTATIN 40 MG TAB PO SCH (20:38)
[2020-01-13 20:52] LABS: Glucose,Whole Blood 160 mg/dL (75-99)
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
--- NOTE | 2020-01-14 00:44 | P.PN ---
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 Aguillon, also he sees a psychiatrist for another problem.He was recently the hospital 12/23-12/30 UTI with confusion, culture is growing Klebsiella bacteremia and blood and urine and leukocytosis Of 29.5K. At that time renal ultrasound showed no hydronephrosis and he was treated with Rocephin and discharged on Ceftin for 10 days. His WBC on discharge was 13.8 K.. Echocardiogram showed ejection fraction 45-50% and he was diagnosed by production support analyst at cardiomyopathy. This M presents because patient fell at home, there was still in me he was using a walker to go to the bathroom when he tripped by the carpet and fell, he denies dizziness or syncope to me. He states that he has some increased frequency of urination, usually he voids 4 times a day, he thinks he voided in more than usual but he cannot tell him many times. He denies dysuria or urgency. No suprapubic pain or back pain or tenderness. Penis fever. No chest pain or dyspnea. No weakness or numbness or headache This morning patient is awake and he knows in the hospital but he sounds its [facility] hospital, he thought its third of December, he did not know the year. He knows name of the president Shruthi. And he knows why he is in the hospital Patient is afebrile with temperature of 102.9, slightly tachycardic with heart rate 101. He is saturating 97% and is related to her oxygen via nasal cannula, no dyspnea. leukocytosis of 39.9 k. Lactic acid is elevated 2.2 came back to normal at 2.0 . Sodium is 132, potassium slightly high at 5.2, creatinine is elevated as 2.5, baseline creatinine is 1.1. Liver enzymes are not elevated. Troponin is negati ve at 0.026. Urinalysis is suspicious for infection with large leukocyte esterase and able to see is elevated at 77. urine and blood culture were sent. EKG showing normal sinus rhythm at [address]-T changes. Chest x-ray: No acute process by radiologist and emergency room patient was started on Rocephin 2 g daily as well as normal saline at 130 mL/h Blood culture came back positive for gram-negative bacilli 01/13/2020 Patient is awake and alert, no new complaint Patient presents with recurrent UTI secondary to Klebsiella pneumoniae with bacteremia secondary to the same microorganism Initially was a plan for PICC line and IV ceftriaxone for 2 weeks as per urology recommendations, however as per infectious disease team recommendation we will want to repeat blood culture to ensure resolution and patient may need oral antibiotics upon discharge rather than IV antibiotics. Vitals and labs reviewed and are stable Objective - Vital Signs Vital signs: Vital Signs Temp 98.2 F 01/13/20 13:00 Pulse 63 01/13/20 13:00 Resp 17 01/13/20 13:00 BP 148/80 01/13/20 13:00 Pulse Ox 98 01/13/20 13:00 Intake & Output 01/12/20 01/13/20 01/13/20 18:59 06:59 18:59 Intake Total 1230 1930 900 Balance 1230 1930 900 Intake: Intake, IV Titration 540 840 450 Amount Sodium Chloride 0.9% 1, 540 840 450 000 ml @ 70 mls/hr IV . [id number] [facility] Rx#:[id number] Oral 690 1090 450 Other: Voiding Method Urinal Urinal Urinal Incontinent Incontinent Incontinent # Voids 1 1 1 # Bowel Movements 1 1 - Exam GENERAL: The patient is alert and oriented x3, not in any acute distress. Well developed, well nourished. HEENT: Pupils are round and equally reacting to light. EOMI. No scleral icterus. No conjunctival pallor. Normocephalic, atraumatic. No pharyngeal erythema. No thyromegaly. CARDIOVASCULAR: S1 and S2 present. No murmurs, rubs, or gallops. PULMONARY: Chest is clear to auscultation, no wheezing or crackles. ABDOMEN: Soft, nontender, nondistended, normoactive bowel sounds. No palpable organomegaly. MUSCULOSKELETAL: No joint swelling or deformity. EXTREMITIES: No cyanosis, clubbing, or pedal edema. NEUROLOGICAL: Gross neurological examination did not reveal any focal deficits. SKIN: No rashes. no petechiae. - Labs CBC & Chem 7: 01/13/20 05:38 01/13/20 05:38 Labs: Abnormal Lab Results - Last 24 Hours (Table) 01/12/20 01/12/20 01/13/20 Range/Units 17:09 20:46 05:38 WBC 13.9 H (3.8-10.6) k/uL RBC 3.75 L (4.30-5.90) m/uL Hgb 10.6 L (13.0-17.5) gm/dL Hct 34.5 L (39.0-53.0) % MCHC 30.8 L (31.0-37.0) g/dL Neutrophils # 12.5 H (1.3-7.7) k/uL Lymphocytes # 0.7 L (1.0-4.8) k/uL BUN (9.0-27.0) mg/dL Creatinine (0.6-1.5) mg/dL Est GFR (CKD-EPI)AfAm (60.0-200.0) Est GFR (CKD-EPI)NonAf (60.0-200.0) BUN/Creatinine Ratio (12.00-20.00) Ratio Glucose (70-110) mg/dL POC Glucose (mg/dL) 224 H 177 H (75-99) mg/dL Calcium (8.7-10.3) mg/dL 01/13/20 01/13/20 01/13/20 Range/Units 05:38 07:24 11:33 WBC (3.8-10.6) k/uL RBC (4.30-5.90) m/uL Hgb (13.0-17.5) gm/dL Hct (39.0-53.0) % MCHC (31.0-37.0) g/dL Neutrophils # (1.3-7.7) k/uL Lymphocytes # (1.0-4.8) k/uL BUN 33.0 H (9.0-27.0) mg/dL Creatinine 1.6 H (0.6-1.5) mg/dL Est GFR (CKD-EPI)AfAm 47.8 L (60.0-200.0) Est GFR (CKD-EPI)NonAf 41.2 L (60.0-200.0) BUN/Creatinine Ratio 20.63 H (12.00-20.00) Ratio Glucose 142 H (70-110) mg/dL POC Glucose (mg/dL) 162 H 224 H (75-99) mg/dL Calcium 8.0 L (8.7-10.3) mg/dL Microbiology - Last 24 Hours (Table) 01/10/20 15:51 Blood Culture Gram Stain - Final Blood Blood Culture - Final Klebsiella pneumoniae 01/10/20 09:30 Urine Culture - Final Urine,Voided Klebsiella pneumoniae Assessment and Plan Assessment: acute urinary tract infection, recurrent, secondary to Klebsiella pneumoniae Klebsiella bacteremia Acute kidney injury Leukocytosis Metabolic encephalopathy secondary to above Elevated lactic acid, came back to normal Diabetes mellitus Hypertension Hyperlipidemia History of CVA/TIA Patient is part of [employer] with no blood transfusion History of Johnson's palsy Plan: This is a pleasant 74 years old male who presents with fall UTI with sepsis and acute kidney injury and gram-negative bacteremia. Continue with antibiotics, Infectious disease consult. Repeat blood culture. Neurology and nephrology teams on the case as well Labs and medication were reviewed.. Continue same treatment. Continue with symptomatic treatment. Resume home medication. Monitor lytes and vitals. DVT and GI prophylaxis. Further recommendations depends on the clinical course of the patient DVT prophylaxis: Subcutaneous heparin GI Prophylaxis: Pepcid PT/OT: Pending Prognosis is guarded
--- NOTE | 2020-01-14 00:45 | P.PN ---
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 Aguillon, also he sees a psychiatrist for another problem.He was recently the hospital 12/23-12/30 UTI with confusion, culture is growing Klebsiella bacteremia and blood and urine and leukocytosis Of 29.5K. At that time renal ultrasound showed no hydronephrosis and he was treated with Rocephin and discharged on Ceftin for 10 days. His WBC on discharge was 13.8 K.. Echocardiogram showed ejection fraction 45-50% and he was diagnosed by printer slotter feeder at cardiomyopathy. This M presents because patient fell at home, there was still in me he was using a walker to go to the bathroom when he tripped by the carpet and fell, he denies dizziness or syncope to me. He states that he has some increased frequency of urination, usually he voids 4 times a day, he thinks he voided in more than usual but he cannot tell him many times. He denies dysuria or urgency. No suprapubic pain or back pain or tenderness. Penis fever. No chest pain or dyspnea. No weakness or numbness or headache This morning patient is awake and he knows in the hospital but he sounds its [facility] hospital, he thought its third of December, he did not know the year. He knows name of the president Shruthi. And he knows why he is in the hospital Patient is afebrile with temperature of 102.9, slightly tachycardic with heart rate 101. He is saturating 97% and is related to her oxygen via nasal cannula, no dyspnea. leukocytosis of 39.9 k. Lactic acid is elevated 2.2 came back to normal at 2.0 . Sodium is 132, potassium slightly high at 5.2, creatinine is elevated as 2.5, baseline creatinine is 1.1. Liver enzymes are not elevated. Troponin is negati ve at 0.026. Urinalysis is suspicious for infection with large leukocyte esterase and able to see is elevated at 77. urine and blood culture were sent. EKG showing normal sinus rhythm at [address]-T changes. Chest x-ray: No acute process by radiologist and emergency room patient was started on Rocephin 2 g daily as well as normal saline at 130 mL/h Blood culture came back positive for gram-negative bacilli 01/12/2020 Patient still somewhat confused today although we showing signs of early improvement Urine culture is growing Klebsiella, blood culture showed gram-negative bacteremia: Neurology input is appreciated and the recommend PICC line and ceftriaxone for 2 weeks, I discussed with the patient and he told me he is going to discuss with the daughter to see if he can come to the hospital daily for IV antibiotic, as per PT/OT evaluation patient is not qualified for inpatient rehab. Case was discussed with watch case polisher Objective - Vital Signs Vital signs: Vital Signs Temp 98.7 F 01/12/20 12:13 Pulse 76 01/12/20 12:13 Resp 20 01/12/20 12:13 BP 167/71 01/12/20 12:13 Pulse Ox 98 01/12/20 12:13 Intake & Output 01/11/20 01/12/20 01/12/20 18:59 06:59 18:59 Intake Total 360 1300 1230 Output Total 0 Balance 360 1300 1230 Intake: Intake, IV Titration 1300 540 Amount Sodium Chloride 0.9% 1, 1300 540 000 ml @ 70 mls/hr IV . [id number] [facility] Rx#:[id number] Oral 360 690 Output: Post Void Residual 0 Other: Voiding Method Urinal Incontinent # Voids 1 # Bowel Movements 1 - Exam GENERAL: The patient is alert and oriented x3, not in any acute distress. Well developed, well nourished. HEENT: Pupils are round and equally reacting to light. EOMI. No scleral icterus. No conjunctival pallor. Normocephalic, atraumatic. No pharyngeal erythema. No thyromegaly. CARDIOVASCULAR: S1 and S2 present. No murmurs, rubs, or gallops. PULMONARY: Chest is clear to auscultation, no wheezing or crackles. ABDOMEN: Soft, nontender, nondistended, normoactive bowel sounds. No palpable organomegaly. MUSCULOSKELETAL: No joint swelling or deformity. EXTREMITIES: No cyanosis, clubbing, or pedal edema. NEUROLOGICAL: Gross neurological examination did not reveal any focal deficits. SKIN: No rashes. no petechiae. - Labs CBC & Chem 7: 01/13/20 05:38 01/13/20 05:38 Labs: Abnormal Lab Results - Last 24 Hours (Table) 01/11/20 01/11/20 01/12/20 Range/Units 20:19 21:56 06:15 WBC (3.8-10.6) k/uL RBC (4.30-5.90) m/uL Hgb (13.0-17.5) gm/dL Hct (39.0-53.0) % Neutrophils # (1.3-7.7) k/uL Lymphocytes # (1.0-4.8) k/uL Sodium 134 L (135-145) mmol/L BUN 38.0 H (9.0-27.0) mg/dL Creatinine 1.7 H (0.6-1.5) mg/dL Est GFR (CKD-EPI)AfAm 44.4 L (60.0-200.0) Est GFR (CKD-EPI)NonAf 38.3 L (60.0-200.0) BUN/Creatinine Ratio 22.35 H (12.00-20.00) Ratio POC Glucose (mg/dL) 142 H 188 H (75-99) mg/dL Calcium 7.6 L (8.7-10.3) mg/dL 01/12/20 01/12/20 01/12/20 Range/Units 06:15 11:21 17:09 WBC 14.7 H (3.8-10.6) k/uL RBC 3.44 L (4.30-5.90) m/uL Hgb 9.8 L (13.0-17.5) gm/dL Hct 31.0 L (39.0-53.0) % Neutrophils # 13.6 H (1.3-7.7) k/uL Lymphocytes # 0.6 L (1.0-4.8) k/uL Sodium (135-145) mmol/L BUN (9.0-27.0) mg/dL Creatinine (0.6-1.5) mg/dL Est GFR (CKD-EPI)AfAm (60.0-200.0) Est GFR (CKD-EPI)NonAf (60.0-200.0) BUN/Creatinine Ratio (12.00-20.00) Ratio POC Glucose (mg/dL) 158 H 224 H (75-99) mg/dL Calcium (8.7-10.3) mg/dL Microbiology - Last 24 Hours (Table) 01/10/20 09:30 Urine Culture - Final Urine,Voided Klebsiella pneumoniae 01/10/20 15:51 Blood Culture Gram Stain - Preliminary Blood Blood Culture - Preliminary Gram Neg Bacilli Assessment and Plan Assessment: acute urinary tract infection, recurrent, secondary to Klebsiella pneumoniae Klebsiella bacteremia Acute kidney injury Leukocytosis Metabolic encephalopathy secondary to above Elevated lactic acid, came back to normal Diabetes mellitus Hypertension Hyperlipidemia History of CVA/TIA Patient is part of [employer] with no blood transfusion History of Johnson's palsy Plan: This is a pleasant 74 years old male who presents with fall UTI with sepsis and acute kidney injury and gram-negative bacteremia. Continue with antibiotics, Infectious disease consult. Repeat blood culture. Neurology and nephrology teams on the case as well Labs and medication were reviewed.. Continue same treatment. Continue with symptomatic treatment. Resume home medication. Monitor lytes and vitals. DVT and GI prophylaxis. Further recommendations depends on the clinical course of the patient DVT prophylaxis: Subcutaneous heparin GI Prophylaxis: Pepcid PT/OT: Pending Prognosis is guarded
[2020-01-14 06:30] LABS: Basophils % (A) 0 %; Eosinophils # (A) 0.1 k/uL (0-0.7); Eosinophils % (A) 0 %; HCT 32.9 % (39.0-53.0); HGB 10.5 gm/dL (13.0-17.5); Lymphocytes # (A) 1.2 k/uL (1.0-4.8); Lymphocytes % (A) 9 %; MCH 28.4 pg (25.0-35.0); MCV 88.8 fL (80.0-100.0); Mean Platelet Volume 7.1; Monocytes # (A) 0.8 k/uL (0-1.0); Monocytes % (A) 6 %; Neutrophils # (A) 10.2 k/uL (1.3-7.7); Neutrophils % (A) 83 %; Platelet Count 252 k/uL (150-450); RDW 13.6 % (11.5-15.5); WBC 12.3 k/uL (3.8-10.6)
[2020-01-14 07:16] LABS: Glucose,Whole Blood 90 mg/dL (75-99)
[2020-01-14] MEDS: INSULIN ASPART (NovoLOG) 100 UNIT/ML VIAL SQ SCH ×4 (08:19→20:42)
[2020-01-14] MEDS: amLODIPine 5 MG TAB PO SCH ×2 (08:20→20:41)
[2020-01-14] MEDS: HEPARIN SODIUM,PORCINE 5,000 UNIT/ML 1 ML VIAL SQ SCH ×2 (08:20→20:41)
[2020-01-14] MEDS: MULTIVITAMINS, THERA 1 EACH TAB PO SCH (08:20)
[2020-01-14] MEDS: FAMOTIDINE 20 MG TAB PO SCH (08:20)
[2020-01-14 09:41] LABS: African American GFR (CKD) 56.2 (60.0-200.0); Anion Gap 8.3 mmol/L (4.00-12.00); Calcium 8.1 mg/dL (8.7-10.3); Carbon Dioxide 21.7 mmol/L (21.6-31.8); Non-African American GFR(CKD) 48.5 (60.0-200.0); Potassium 3.6 mmol/L (3.5-5.5)
[2020-01-14 11:19] LABS: Glucose,Whole Blood 236 mg/dL (75-99)
[2020-01-14 11:46] VITALS: RESP 18
[2020-01-14] MEDS: SODIUM CHLORIDE 0.9% 1,000 ML IV SCH (12:27)
--- NOTE | 2020-01-14 15:32 | PN ---
PROGRESS NOTE Patient is seen for followup for acute kidney injury. Renal function has been improving. Serum creatinine down to 1.4 from 2.57 on initial admission. Currently patient is maintained on IV fluids at about 40-50 mL an hour. He has been voiding on his own. PHYSICAL EXAMINATION: On examination today, blood pressure 141/78, heart rate 74 per minute, he is afebrile. Examination of the heart S1, S2. Examination of the lungs, bilateral breath sounds are heard. Abdomen is soft, nontender. Examination of lower extremities shows no significant edema. AUTOMATED WEAVER exam grossly intact. LABS: Show hemoglobin 10.5 sodium 136, potassium 3.6, chloride 106, BUN 28, creatinine 1.4. ASSESSMENT: 1. Acute kidney injury, nonoliguric, mostly prerenal associated with underlying infection and hypotension, improving with IV hydration. Oral intake is improved. 2. Klebsiella bacteremia and urinary tract infection, maintained on antibiotics. 3. Chronic kidney disease stage 3, previous creatinine 1.1 as of 12/27/2019. 4. Type 2 diabetes. 5. Benign hypertension, blood pressure currently is controlled. PLAN: Continue to encourage increased oral intake, repeat labs in a.m. and continue to hold off on the ADAMA inhibitors for now. MMODL / IJN: [id number] /
[2020-01-14 17:11] LABS: Glucose,Whole Blood 157 mg/dL (75-99)
--- NOTE | 2020-01-14 18:19 | PN ---
PROGRESS NOTE DATE OF SERVICE: 01/14/2020 REASON FOR FOLLOWUP: Klebsiella UTI and bacteremia. INTERVAL HISTORY: Patient is currently afebrile. He is breathing comfortably. Denies having any chest pain or cough. No nausea. No abdominal pain. No diarrhea. PHYSICAL EXAMINATION: His blood pressure is a 141/72 with a pulse of 74, temperature 98.7, he is 99% on 3 L nasal cannula. General description is an elderly male lying in bed in no distress. Respiratory system: Unlabored breathing, clear to auscultation anteriorly. Heart S1, S2. Regular rate and rhythm. Abdomen soft, no tenderness. LABS: Hemoglobin is 10.3, white count 12.3, creatinine 1.4. Blood and urine with Klebsiella. DIAGNOSTIC IMPRESSION AND PLAN: Patient with Klebsiella bacteremia secondary to urinary source. Patient is currently covered with Rocephin 2 grams daily to continue while inpatient. Hopefully finish therapy with oral antibiotic on discharge. Continue supportive care. MMODL / IJN: [id number] /
[2020-01-14] MEDS ORDERED: CLOTRIMAZOLE 1% CREAM 15 GM TUBE TOPICAL PRN (19:02)
--- NOTE | 2020-01-14 19:52 | PN ---
PROGRESS NOTE DATE OF SERVICE: 01/14/2020 This 74-year-old gentleman admitted with Klebsiella pneumonia sepsis secondary to UTI is being closely monitored. The patient has elevated white count still. The patient is on Rocephin 2 g IV. Repeat blood cultures pending at this time. PAST MEDICAL HISTORY: Reviewed. REVIEW OF SYSTEMS: CARDIOVASCULAR SYSTEM: No angina. RESPIRATORY: As mentioned earlier. GI: As mentioned earlier. : No dysuria. NERVOUS SYSTEM: No numbness, weakness. CURRENT MEDICATIONS: Reviewed and include Tylenol, Norvasc, Lipitor, Rocephin, Pepcid, heparin, magnesium oxide, multivitamins. Doses reviewed. PHYSICAL EXAMINATION: Alert and oriented x2. Pulse 74, blood pressure 141/78, respiration 18, temperature 98.7, pulse ox 98% on 3 L. HEENT: Conjunctivae normal. Oral mucosa moist. NECK: No jugular venous distention. No lymph node enlargement. CARDIOVASCULAR: S1, S2, muffled. No S3, no S4, RESPIRATORY: Diminished breath sounds at the bases. A few scattered rhonchi. ABDOMEN: Soft, nontender. LEGS: No edema, no swelling. NERVOUS SYSTEM: Diffusely weak. LABS: WBC 12.2, hemoglobin 10.5. ASSESSMENT: 1. Acute urinary tract infection with Klebsiella pneumonia sepsis. 2. Acute kidney injury, acute renal failure. 3. Metabolic encephalopathy acute secondary to sepsis and leukocytosis. 4. Elevated lactic acid secondary to sepsis. 5. Diabetes mellitus type 2. 6. Hypertension. 7. Hyperlipidemia. 8. History of cerebrovascular accident, transient ischemic attack. 9. Restoration. No blood transfusion. 10.History of degenerative joint disease. 11.History of prostate disorder. 12.History of appendectomy. 13.History of anxiety. RECOMMENDATIONS AND DISCUSSION: I recommend to continue current management. Continue with IV antibiotics. I would order repeat blood culture and we will continue to monitor. Closely follow with Infectious Disease. Medication reconciliation was done. Further recommendations to follow. Lisinopril is on hold. MMODL / IJN: [id number] /
[2020-01-14 20:08] LABS: Glucose,Whole Blood 212 mg/dL (75-99)
[2020-01-14] MEDS: ATORVASTATIN 40 MG TAB PO SCH (20:41)
[2020-01-14] MEDS: TAMSULOSIN 0.4 MG CAP.ER.24H PO SCH (20:41)
[2020-01-14] MEDS: INSULIN DETEMIR (LEVEMIR) 100 UNIT/ML SYR SQ SCH (20:42)
[2020-01-15 06:45] LABS: Basophils % (A) 0 %; Eosinophils # (A) 0.1 k/uL (0-0.7); Eosinophils % (A) 1 %; HCT 33.5 % (39.0-53.0); HGB 10.8 gm/dL (13.0-17.5); Hypochromasia Slight; Lymphocytes # (A) 1.5 k/uL (1.0-4.8); Lymphocytes % (A) 12 %; MCHC 32.3 g/dL (31.0-37.0); MCV 89.9 fL (80.0-100.0); Mean Platelet Volume 7.9; Monocytes % (A) 8 %; Neutrophils # (A) 9.8 k/uL (1.3-7.7); Neutrophils % (A) 78 %; Platelet Count 210 k/uL (150-450); RBC 3.73 m/uL (4.30-5.90); RDW 13.6 % (11.5-15.5); WBC 12.7 k/uL (3.8-10.6)
[2020-01-15 07:03] LABS: Glucose,Whole Blood 84 mg/dL (75-99)
[2020-01-15] MEDS: INSULIN ASPART (NovoLOG) 100 UNIT/ML VIAL SQ SCH ×2 (07:28→12:47)
[2020-01-15] MEDS: FAMOTIDINE 20 MG TAB PO SCH (08:27)
[2020-01-15] MEDS: MULTIVITAMINS, THERA 1 EACH TAB PO SCH (08:28)
[2020-01-15] MEDS: HEPARIN SODIUM,PORCINE 5,000 UNIT/ML 1 ML VIAL SQ SCH (08:28)
[2020-01-15] MEDS: amLODIPine 5 MG TAB PO SCH (08:28)
[2020-01-15] MEDS ORDERED: ESCITALOPRAM 10 MG TAB PO SCH (09:00)
[2020-01-15 09:25] LABS: African American GFR (CKD) 61.4 (60.0-200.0); Anion Gap 7.9 mmol/L (4.00-12.00); BUN/Creat Ratio 18.46 Ratio (12.00-20.00); Calcium 7.9 mg/dL (8.7-10.3); Carbon Dioxide 24.1 mmol/L (21.6-31.8)
[2020-01-15 11:55] LABS: Glucose,Whole Blood 160 mg/dL (75-99)
[2020-01-15 12:00] VITALS: BP 141/69; PULSE 70; TEMP 98.5
--- NOTE | 2020-01-15 13:37 | PN ---
PROGRESS NOTE The patient is seen for followup for acute kidney injury. His renal function has improved significantly, creatinine down to 1.3 today. Patient is comfortable. He is eating fair. He is sitting up on a bedside chair. PHYSICAL EXAMINATION: Blood pressure is 141/69, heart rate 70 per minute, he is afebrile. Examination of the heart S1, S2. Exam examination of lungs, bilateral breath sounds are heard. Abdomen is soft, nontender. Examination of lower extremities shows no significant edema. QUARRY PLUG AND FEATHER DRILLER exam grossly intact. LABS: Show sodium 136, potassium 4.0, chloride of 104, BUN 24, creatinine 1.3, calcium 7.9, hemoglobin 10.8. ASSESSMENT: 1. Acute kidney injury, acute tubular necrosis, currently resolved. 2. Klebsiella bacteremia and urinary tract infection, maintained on antibiotics. 3. Chronic kidney disease stage 3, baseline creatinine about 1.1. 4. Type 2 diabetes. 5. Benign hypertension, currently controlled. PLAN: Continue to encourage increased oral intake. Monitor labs periodically. I will discontinue the IV fluids. MMODL / IJN: [id number] /
--- NOTE | 2020-01-16 09:33 | DS ---
DISCHARGE SUMMARY DATE OF SERVICE: 01/15/2020 FINAL DIAGNOSES: 1. Acute urinary tract infection with Klebsiella pneumoniae sepsis, present on admission. 2. Acute kidney acute kidney injury with acute renal failure acute tubular necrosis. 3. Metabolic encephalopathy acute encephalopathy, acute secondary to sepsis. 4. Elevated lactic acid secondary to sepsis. 5. Diabetes mellitus type 2. 6. Hypertension. 7. Hyperlipidemia. 8. History of cerebrovascular accident, transient ischemic attack. 9. Caodaism, no blood transfusion. 10.History of DJD. 11.History of prostate disorder. 12.History of appendectomy. 13.History of anxiety. DISCHARGE DISPOSITION: The patient will be discharged in a stable condition with guarded prognosis. HISTORY OF PRESENT ILLNESS: This is a 74-year-old gentleman with a past medical history of multiple medical problems admitted with acute UTI with Klebsiella pneumoniae sepsis. Treated with antibiotics, patient improved significantly On exam, vitals are stable. CARDIOVASCULAR: S1, S2. ABDOMEN: Soft. NERVOUS SYSTEM: The patient is able to ambulate. The patient will be discharged in a stable condition with guarded prognosis. DISCHARGE ADVICE: 1. Diet is cardiac diet. 2. Activity limited until followup. 3. Follow up with Dr. Aguillon in 2-3 days. 4. Follow up with Urology as recommended. 5. Follow up with Infectious Disease as recommended. MEDICATIONS: 1. Flomax 0.4 q.h.s. 2. Lexapro 10 mg daily. 3. Multivitamins 1 p.o. daily. 4. Ketoconazole cream. 5. Ceftin 500 mg p.o. b.i.d. for 5 days. 6. Insulin Levemir 15 units subcu q.h.s. 7. Lipitor 40 mg q.h.s. 8. Norvasc 5 mg p.o. b.i.d. MMODL / IJN: [id number] /
== END 2020-01-15 14:31 | disposition home health service (06) | DRG 871 ==
LOC: EC 09:09 → 3SCARD 15:18 → 6NMEDSUR 01-11 20:58
PROVIDERS: ADMIT Internal Medicine; ATTEND Internal Medicine
DX: A41.59 Other Gram-negative sepsis (principal); G93.41 Metabolic encephalopathy; N17.0 Acute kidney failure with tubular necrosis; I42.9 Cardiomyopathy, unspecified; N39.0 Urinary tract infection, site not specified; E11.22 Type 2 diabetes mellitus with diabetic chronic kidney disease; N18.30 Chronic kidney disease, stage 3 unspecified; I95.9 Hypotension, unspecified; Z79.4 Long term (current) use of insulin; Z89.422 Acquired absence of other left toe(s); E78.5 Hyperlipidemia, unspecified; F40.240 Claustrophobia; I12.9 Hypertensive chronic kidney disease with stage 1 through stage 4 chronic kidney disease, or unspecified chronic kidney disease; E86.1 Hypovolemia; M19.90 Unspecified osteoarthritis, unspecified site; N28.1 Cyst of kidney, acquired; N40.0 Benign prostatic hyperplasia without lower urinary tract symptoms; K57.90 Diverticulosis of intestine, part unspecified, without perforation or abscess without bleeding; N39.41 Urge incontinence; R55 Syncope and collapse; F41.9 Anxiety disorder, unspecified; Z79.899 Other long term (current) drug therapy; Z96.653 Presence of artificial knee joint, bilateral; Z90.49 Acquired absence of other specified parts of digestive tract; Z87.440 Personal history of urinary (tract) infections; Z86.73 Personal history of transient ischemic attack (TIA), and cerebral infarction without residual deficits; Z87.19 Personal history of other diseases of the digestive system; Z90.89 Acquired absence of other organs; Z88.5 Allergy status to narcotic agent; Z87.01 Personal history of pneumonia (recurrent); Z88.1 Allergy status to other antibiotic agents; Z91.041 Radiographic dye allergy status; Z98.890 Other specified postprocedural states; Z87.09 Personal history of other diseases of the respiratory system; Z87.891 Personal history of nicotine dependence; Z87.828 Personal history of other (healed) physical injury and trauma; Z98.42 Cataract extraction status, left eye; Z98.41 Cataract extraction status, right eye; W01.0XXA Fall on same level from slipping, tripping and stumbling without subsequent striking against object, initial encounter; Y92.009 Unspecified place in unspecified non-institutional (private) residence as the place of occurrence of the external cause
CPT/HCPCS: 36415; 71046; 76770; 80048; 80053; 81001; 83605; 83735; 84484; 85025; 85610; 85730; 87040; 87077; 87086; 87186; 93005; 96361; 96374; 99285

== ENCOUNTER → 2020-02-17 | Outpatient (CLI) | payer MEDICARE ==
--- NOTE | 2020-02-17 12:49 | CT ---
EXAMINATION TYPE: CT abdomen pelvis wo con DATE OF EXAM: 02/17/2020 COMPARISON: None HISTORY: 75-year-old male HEMATURIA/ BLADDER INFECTION X [address] DLP: 455.9 mGycm. Automated exposure control for dose reduction was used. TECHNIQUE: Contiguous axial scanning of the abdomen and pelvis without IV contrast. Coronal and sagit lakhwinder reconstructions performed. FINDINGS: Heart normal size without pericardial effusion. Three-vessel coronary artery calcifications. Ectatic ascending aorta 3.9 cm. Possible underlying pulmonary arterial hypertension. Strandy atelectasis in t he lower lungs. A couple calcified granulomas at the lung bases. No pleural effusion. Calcified granuloma left liver lobe. Noncontrast appearance of the liver, gallbladder, adrenal glands , and pancreas show no gross evaluate. Multiple calcified granulomas in the spleen. Left kidney shows a 2.0 cm lateral renal cyst and a 3 mm nonobstructive calculus. No hydronephrosis. Right kidney shows moderate hydronephrosis with a 1.2 cm calculus just beyond the right UVJ. There is a 4.8 cm lesion along the posterior aspect of the right kidney showing internal areas of fat density and also internal areas of high density. Asymmetric mild right-sided perinephric edema. Retroaortic left renal vein. Mild atherosclerotic calcifications abdominal aorta. No dilated small bowel, free fluid, or free air. No mesenteric or retroperitoneal lymphadenopathy see n. Mild stool burden. Scattered colonic diverticulosis, greatest in the sigmoid colon. No pericolonic in flammatory change. Bladder partially distended. Prostate gland mildly enlarged at 4.3 cm wide. No abnormal fluid collect ion in the pelvis or pelvic lymphadenopathy. Bones: Advanced degenerative disc disease L2-L3 and L5-S1. Grade 1 retrolisthesis at L2-L3 and L2-L4 secondary to hypertrophic facet arthropathy. IMPRESSION: 1. A 1.2 cm calculus just below the right UPJ with moderate obstructive uropathy. 2. A lesion measuring 4.8 cm along the posterior aspect of the right kidney shows internal areas of fat density and also internal areas of high density. Differential consideration includes mild hemorrh age associated with an underlying AML. If any outside priors are available, comparison is recommended to demonstrate stability of this lesion as RCC's can uncommonly contain macroscopic fat. If no prior s are available, follow-up CT in 6-8 weeks to reassess. 3. Colonic diverticulosis, greatest in the sigmoid colon. No evidence for acute diverticulitis.
== END | disposition home or self-care (01) ==
LOC: RADCTMAIN 09:20
PROVIDERS: ATTEND Urology
DX: N13.9 Obstructive and reflux uropathy, unspecified (principal); N20.1 Calculus of ureter; N28.89 Other specified disorders of kidney and ureter; K57.30 Diverticulosis of large intestine without perforation or abscess without bleeding; Z88.5 Allergy status to narcotic agent; Z88.3 Allergy status to other anti-infective agents; Z88.8 Allergy status to other drugs, medicaments and biological substances
CPT/HCPCS: 74176

== ENCOUNTER 2022-12-24 11:36 | Emergency (ER) | payer MEDICARE ==
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
[2022-12-24 12:03] VITALS: BP 108/57; PULSE 73; RESP 18; TEMP 98.4
--- NOTE | 2022-12-24 12:26 | CT ---
EXAMINATION TYPE: CT brain sheldon wo con DATE OF EXAM: 12/24/2022 COMPARISON: 12/23/2019 HISTORY: fall CT DLP: 1342.[address] of the brain was performed. The ventricles, basal cisterns and sulci overlying the cerebral convexities demonstrate mild enlargem ent. There is no evidence for intracranial hemorrhage or sulcal effacement. There is decreased attenuatio n about the periventricular white matter and deep white matter of both cerebral hemispheres, compatib le with chronic small vessel ischemia. No mass effects are seen. If symptoms persist consider MRI. Osseous calvarium is intact. IMPRESSION: 1. Age related atrophic and chronic small vessel ischemic change without acute intracranial process seen at this time. CT Cervical Spine: Unenhanced CT of the cervical spine was performed with bone and soft tissue window settings submitted . Coronal and sagittal reconstruction is obtained. There is normal alignment and prevertebral soft tissues. No evidence for acute cervical fracture . Scattered degenerative disc disease and spondylosis. Stable cystic lesion left C2 segment. Biapical s carring. IMPRESSION: 1. No evidence for acute fracture or subluxation of the cervical spine.
--- NOTE | 2022-12-24 12:28 | XR ---
EXAMINATION TYPE: XR shoulder complete LT DATE OF EXAM: 12/24/2022 CLINICAL HISTORY: pain COMPARISON: NONE TECHNIQUE: Three views of the left shoulder are obtained. FINDINGS: There is no acute fracture/dislocation evident. The acromioclavicular and glenohumeral jesus int spaces appear moderately narrowed. The visualized ribs are intact and unremarkable. IMPRESSION: 1. There is no acute fracture or dislocation. ICD 10 NO FRACTURE, INITIAL EVALUATION
--- NOTE | 2022-12-24 14:00 | XR ---
EXAMINATION TYPE: XR foot complete RT DATE OF EXAM: 12/24/2022 CLINICAL HISTORY: pain TECHNIQUE: Frontal, lateral and oblique images of the right foot are obtained. COMPARISON: None. FINDINGS: There is soft tissue swelling and soft tissue air are noted about the region of the great t oe. I do not see evidence of bony destructive process at this time to suggest osteomyelitis. If sympt oms persist consider repeat CT scan. Degenerative narrowing metatarsal phalangeal joint and interphal angeal joint. No acute fractures identified. IMPRESSION: Definite evidence for osteomyelitis. Soft tissue edema with soft tissue air. Correlate for air produc ing infection.
[2022-12-24] MEDS ORDERED: IBUPROFEN 800 MG TAB PO STA (14:25)
== END 2022-12-24 14:48 | disposition home or self-care (01) ==
LOC: EC 11:36
DX: R51.9 Headache, unspecified (principal); M25.512 Pain in left shoulder; E11.621 Type 2 diabetes mellitus with foot ulcer; I10 Essential (primary) hypertension; M19.90 Unspecified osteoarthritis, unspecified site; Z86.73 Personal history of transient ischemic attack (TIA), and cerebral infarction without residual deficits; F41.9 Anxiety disorder, unspecified; Z88.8 Allergy status to other drugs, medicaments and biological substances; Z88.5 Allergy status to narcotic agent; Z79.4 Long term (current) use of insulin; Z79.899 Other long term (current) drug therapy; W01.198A Fall on same level from slipping, tripping and stumbling with subsequent striking against other object, initial encounter
CPT/HCPCS: 70450; 72125; 99285

== ENCOUNTER → 2023-01-12 | Outpatient (CLI) | payer MEDICARE, BC ==
--- NOTE | 2023-01-12 21:49 | MR ---
EXAMINATION TYPE: MR brain wo/w con DATE OF EXAM: 01/12/2023 COMPARISON: 06/18/2017 HISTORY: 77-year-old male F03.90, history of dementia TECHNIQUE: Multiplanar, multisequence images of the brain and brainstem were acquired before and aft er administration of 8.5ml mL IV Gadavist. Diffusion weighted imaging is performed. FINDINGS: No evidence for acute infarction, hemorrhage, mass, mass effect, midline shift, herniation, effacemen t of basal cisterns, or extra-axial fluid collection. There is moderate generalized cerebral atrophy that appears to have slightly progressed from 2018. Hypoplastic A1 segment right anterior cerebral artery. Otherwise, major intracranial flow voids appea r intact. T2/FLAIR weighted sequences show moderate scattered bright signal change throughout the periventricul ar and deep white matter regions of both cerebral hemispheres. Areas of cortical bright signal sugges kendy in the right occipital lobe suggesting prior small cortical infarct Midline structures demonstrate normal morphology. The craniocervical junction is normal. Post contrast images demonstrate no evidence of pathologic enhancement. Dural venous sinuses are pat ent. Mild mucosal thickening throughout the maxillary sinuses and ethmoid air cells. Globes are intact. IMPRESSION: Moderate cerebral atrophy, slightly progressed from 2018. Moderate scattered burden of chronic small vessel ischemic disease. No acute intracranial abnormality or enhancing intracranial lesions seen.
== END | disposition home or self-care (01) ==
LOC: RADMRIMAIN 14:21
PROVIDERS: ATTEND Internal Medicine
DX: F03.90 Unspecified dementia, unspecified severity, without behavioral disturbance, psychotic disturbance, mood disturbance, and anxiety (principal); G31.9 Degenerative disease of nervous system, unspecified; I67.82 Cerebral ischemia
CPT/HCPCS: 70553; A9585

== ENCOUNTER → 2023-02-05 | Outpatient (CLI) | payer MEDICARE, BC ==
[2023-02-05 16:19] LABS: Basophils # (A) 0.03 X 10*3/uL (0.00-0.10); Basophils % (A) 0.4 %; Eosinophils # (A) 0.07 X 10*3/uL (0.04-0.35); Eosinophils % (A) 0.9 %; HCT 37.1 % (39.6-50.0); HGB 11.1 g/dL (13.0-17.0); Lymphocytes # (A) 1.72 X 10*3/uL (0.90-5.00); Lymphocytes % (A) 21.1 %; MCH 27.1 pg (27.0-32.0); MCHC 29.9 g/dL (32.0-37.0); MCV 90.7 FL (80.0-97.0); Mean Platelet Volume 10.9 FL (9.5-12.2); Monocytes # (A) 0.56 X 10*3/uL (0.20-1.00); Monocytes % (A) 6.9 %; NRBC Per 100 WBC 0 X 10*3/uL (0.00-0.01); Neutrophils # (A) 5.74 X 10*3/uL (1.80-7.70); Neutrophils % (A) 70.5 %; Platelet Count 242 X 10*3/uL (140-440); RBC 4.09 X 10*6/uL (4.40-5.60); RDW 15.4 % (11.5-14.5); WBC 8.14 X 10*3/uL (4.50-10.00)
[2023-02-05 16:26] LABS: ALT 16 U/L (10-49); AST 17 U/L (14-35); Albumin/Globulin Ratio 1.38 Ratio (1.60-3.17); Alkaline Phosphatase 92 U/L (41-126); BUN/Creat Ratio 17.18 Ratio (12.00-20.00); Blood Urea Nitrogen 29.2 mg/dL (9.0-27.0); C Reactive Protein <0.30 mg/dL (0.00-0.80); Calcium 9.7 mg/dL (8.7-10.3); Carbon Dioxide 24.7 mmol/L (21.6-31.8); Chloride 100 mmol/L (96-109); Globulin 2.9 g/dL (1.6-3.3); Glucose 170 mg/dL (70-110); Potassium 5.3 mmol/L (3.5-5.5); Sodium 137 mmol/L (135-145); Total Bilirubin 0.3 mg/dL (0.3-1.2); Total Protein 6.9 g/dL (6.2-8.2)
[2023-02-05 16:28] LABS: Prealbumin 20.4 mg/dL (18.0-42.0)
[2023-02-05 17:58] LABS: Erythrocyte Sedimentation Rate 28 mm/Hr (0-20)
== END | disposition home or self-care (01) ==
LOC: LABWHC1 11:11
PROVIDERS: ATTEND Family Medicine
DX: E11.621 Type 2 diabetes mellitus with foot ulcer (principal); L97.509 Non-pressure chronic ulcer of other part of unspecified foot with unspecified severity
CPT/HCPCS: 36415; 80053; 84134; 85025; 85652; 86140

== ENCOUNTER → 2023-02-06 | Outpatient (CLI) | payer MEDICARE, BC ==
--- NOTE | 2023-02-06 10:19 | US ---
EXAMINATION TYPE: US kidneys/renal and bladder DATE OF EXAM: 02/06/2023 COMPARISON: US, CT CLINICAL INDICATION: Male, 78 years old with history of N289 RENAL INSUFFICIENCY; Renal insufficiency EXAM MEASUREMENTS: Right Kidney: 10.2 x 4.5 x 5.2 cm Left Kidney: 11.0 x 4.9 x 5.3 cm Right Kidney: Limited visibility. No hydronephrosis or masses seen Left Kidney: Anechoic area seen lower pole: 2.7 x 2.3 x 2.2 cm. Hyperechoic focus seen lateral lower pole: 0.7 x 0.6 x 0.4 cm. Bladder: Undistended, not visualized. Patient was offered to drink water and scan again. Patient did not prep for exam and does not know if he can hold bladder for exam. Patient decided not attempt to f ill bladder for today's exam and is aware of limitations. Bilateral Jets seen: No IMPRESSION: 1. No obstructive uropathy. 2. Anechoic cyst left kidney. 3. Left renal cortical calcification versus perinephric prominent fat.
== END | disposition home or self-care (01) ==
LOC: RADUSWWP 09:22
PROVIDERS: ATTEND Internal Medicine
DX: I73.9 Peripheral vascular disease, unspecified (principal); N28.1 Cyst of kidney, acquired; N28.89 Other specified disorders of kidney and ureter
CPT/HCPCS: 76770

== ENCOUNTER → 2023-09-16 | Outpatient (CLI) | payer MEDICARE ==
--- NOTE | 2023-09-16 10:06 | US ---
EXAMINATION TYPE: US bladder DATE OF EXAM: 09/16/2023 COMPARISON: NONE CLINICAL INDICATION: Male, 78 years old with history of N40.0 BENIGN PROSTATIC HYPERPLASIA; urinates every 2hrs and flow is a trickle TECHNIQUE: Multiple sonographic images of the bladder are obtained. FINDINGS: EXAM MEASUREMENTS: Post Void Residual Volume: 0 mL CAR AND YARD SUPERVISOR NOTES: normal appearing post void Normal Post Void Residual (less than 50ml): yes IMPRESSION: No acute process, no post void residual.
== END | disposition home or self-care (01) ==
LOC: RADUSWWP 08:42
PROVIDERS: ATTEND Internal Medicine
DX: N40.0 Benign prostatic hyperplasia without lower urinary tract symptoms (principal)
CPT/HCPCS: 76857

== ENCOUNTER → 2024-04-05 | Outpatient (CLI) | payer MEDICARE | LOC: LABWHC1 08:26 | PROVIDERS: ATTEND Internal Medicine | DX: Z53.9 Procedure and treatment not carried out, unspecified reason (principal) ==

== ENCOUNTER → 2024-04-08 | Outpatient (CLI) | payer MEDICARE ==
--- NOTE | 2024-04-08 08:58 | US ---
EXAMINATION TYPE: US liver DATE OF EXAM: 04/08/2024 COMPARISON: CT abdomen and pelvis 02/17/2020, abdominal ultrasound 12/25/2019 CLINICAL INDICATION: Male, 79 years old with history of R74.8 ELEV LIVER ENZYMES; known fatty liver, no symptoms TECHNIQUE: Grayscale and color Doppler imaging of the right upper quadrant was performed. FINDINGS: EXAM MEASUREMENTS: Liver Length: 17.3 cm Gallbladder Wall: 0.3 cm CBD: 0.4 cm Right Kidney: 9.4 x 3.3 x 5.1 cm BAND DIRECTOR NOTES:bowel gas limits exam Pancreas: not seen due to bowel gas Liver: intercostal images due to bowel gas, difficult to penetrate Gallbladder: wnl Evidence for sonographic Gomez's sign: no CBD: wnl Right Kidney: wnl The pancreas is obscured due to overlying bowel gas. Limited evaluation of the liver due to overlying bowel gas without gross evidence for abnormality. Gallbladder demonstrates no wall thickening, stone s, or surrounding fluid. Negative sonographic Gomez's sign. Common bile duct is within normal limits . Right kidney demonstrates no hydronephrosis, solid mass, or shadowing calculi. IMPRESSION: Limited examination due to overlying bowel gas without ultrasound evidence for acute process. [facility], , 04/08/2024 8:55 AM
== END | disposition home or self-care (01) ==
LOC: RADUSWWP 07:38
PROVIDERS: ATTEND Internal Medicine
DX: K76.0 Fatty (change of) liver, not elsewhere classified (principal); R74.8 Abnormal levels of other serum enzymes
CPT/HCPCS: 76705

== ENCOUNTER → 2024-04-11 | Outpatient (CLI) | payer MEDICARE ==
--- NOTE | 2024-04-11 14:52 | MR ---
EXAMINATION TYPE: MR brain wo con DATE OF EXAM: 04/11/2024 COMPARISON: MRI brain January 12, 2023 HISTORY: dementia TECHNIQUE: Multiplanar, multisequence imaging of the brain and brainstem is performed without IV cont rast. FINDINGS: Diffusion weighted images demonstrate no evidence of a recent infarct or other diffusion abnormality. There is moderate ventricular and sulcal prominence redemonstrated. There are multifocal and confluen t areas of T2 hyperintensity prominent involving the periventricular white matter redemonstrated. Midline structures redemonstrate normal morphology. The craniocervical junction remains within andres l limits. Normal vascular flow voids are redemonstrated. Note is made of persistent hypoplastic right A1 segment. Bilateral aphakia redemonstrated. Mild mucosal thickening involving inferior aspect of t he bilateral maxillary sinuses left greater than right and anterior ethmoid sinuses bilaterally is re demonstrated. IMPRESSION: 1. Persistent moderate diffuse cerebral atrophy and chronic small vessel ischemic change. No signific ant change from most recent prior MRI. [facility], , 04/11/2024 2:50 PM
== END | disposition home or self-care (01) ==
LOC: RADMRIMAIN 13:11
PROVIDERS: ATTEND Internal Medicine
DX: I67.82 Cerebral ischemia (principal); G31.9 Degenerative disease of nervous system, unspecified; F03.90 Unspecified dementia, unspecified severity, without behavioral disturbance, psychotic disturbance, mood disturbance, and anxiety
CPT/HCPCS: 70551

== ENCOUNTER → 2024-04-29 | Outpatient (CLI) | payer MEDICARE ==
[~2024-04-29] MED LIST changes: -DEXAMETHASONE SOD PHOSPHATE 10 MG/ML 1 ML VIAL IV ONE; -LIDOCAINE 1% 20 ML VIAL (10MG/ML) FOR IV START INTRADERMA PRN; -MIDAZOLAM 2 MG/2 ML VIAL IV PRN; -ONDANSETRON 4 MG/2 ML VIAL IVP ONE; +REGADENOSON 0.4 MG/5 ML SYRINGE IV PRN; -SCOPOLAMINE 1.5MG/72HR PATCH TRANSDERM ONE
--- NOTE | 2024-04-29 11:18 | CA ---
Lexiscan Nuclear Stress Test Report Name: Mick Lopez Exam Date: 04/29/2024 09:43 Exam Location: [facility] Stress Ht (in): 69 Wt (lb): 210 BSA: 2.11 Ordering Phys: Kieran Basilio DO Referring Phys: GEETA Technologist: Derek Dickey Age: 79 Gender: M : 1945 Procedure CPT: Indications: R07.9 CHEST PAIN ICD-10 Codes: Patient History: HTN, DIABETES, PRIOR STROKE, HYPERCHOLESTEROLEMIA, PRIOR SMOKER, COPD Medications: Meds past 24 hrs: Pretest Chest Pain: STRESS TEST Lexiscan Protocol Exercise Duration (min:sec): 01:[address] Depressions (mm): Angina Score: Luevano Score: Resting HR (bpm): 61 Peak HR (bpm): 86 Resting BP (mmHg): 133 / 69 Peak BP (mmHg): 133 / 69 MPHR: 139 Target HR: 118 % MPHR: 62 METS: 1.0 Total Dose: Peak Dose: Atropine: Double Product: 08020 BP Response: Stress Termination: INFUSION COMPLETE Stress Symptoms: NO SYMPTOMS Stress Summary: ECG ANALYSIS Resting ECG: Stress ECG: CONCLUSIONS Nondiagnostic stress test Dr. Robert Reaves MD (Electronically Signed) Final Date: 29 April 2024 11:17
--- NOTE | 2024-04-29 12:08 | NM ---
EXAMINATION TYPE: NM stress lexiscan cardiolite DATE OF EXAM: 04/29/2024 COMPARISON: NONE CLINICAL INDICATION: Male, 79 years old with history of R07.9 Chest pain, TECHNIQUE: After the intravenous administration of 10.7 mCi Tc 99m Sestamibi - Cardiolite resting SP ECT images acquired 55 minutes post injection. At peak stress 26.2 mCi Tc 99m Sestamibi - Stress images obtained 34 minutes post injection The patient was stressed with 0.4mg Lexiscan. FINDINGS: No fixed defects are evident. There is a large defect on stress through the anterior septal wall and through the inferior lateral wall extending through the cardiac apex. On the Polar map resting images some eros-infarct reversibility is evident with persistent fixed defect near the cardiac apex in the anterior wall. No reversible stress defects on Spect images. There is global hypokinesia Ejection fraction is calculated to be 41 %. IMPRESSION: 1. Large prior infarct anterior septal and posterior lateral hennessy extending to the cardiac apex with eros-infarct stress-induced ischemic changes. [facility], , 04/29/2024 12:06 PM
== END | disposition home or self-care (01) ==
LOC: RADNMMAIN 07:41
PROVIDERS: ATTEND Internal Medicine
DX: E78.00 Pure hypercholesterolemia, unspecified (principal); I10 Essential (primary) hypertension; E11.9 Type 2 diabetes mellitus without complications; Z86.73 Personal history of transient ischemic attack (TIA), and cerebral infarction without residual deficits
CPT/HCPCS: 93017; 78452; A9500; J2785

== ENCOUNTER → 2024-05-13 | Outpatient (CLI) | payer MEDICARE ==
--- NOTE | 2024-05-14 01:57 | CA ---
Transthoracic Echo Report Name: Mick Lopez Age: 79 Gender: M : 1945 Exam Date: 05/13/2024 17:08 Exam Location: [place] Echo Ht (in): 69 Wt (lb): 213 Ordering Physician: Kieran Basilio DO Attending/Referring Phys: Parachute Crown Sewer Mei Levin RDCS Procedure CPT: Indications: R07.9 CHEST PAIN, UNSPECIFIED Cardiac Hx: Technical Quality: Fair Contrast 1: Total Dose (mL): Contrast 2: Total Dose (mL): MEASUREMENTS (Male / Female) Normal Values 2D ECHO LV Diastolic Diameter PLAX 5.4 cm 4.2 - 5.9 / 3.9 - 5.3 cm LV Systolic Diameter PLAX 4.0 cm IVS Diastolic Thickness 1.3 cm 0.6 - 1.0 / 0.6 - 0.9 cm LVPW Diastolic Thickness 1.2 cm 0.6 - 1.0 / 0.6 - 0.9 cm LV Relative Wall Thickness 0.5 RV Internal Dim ED PLAX 2.4 cm LVOT Diameter 1.8 cm LA Systolic Diameter LX 0.0 cm 3.0 - 4.0 / 2.7 - 3.8 cm LV Diastolic Volume MOD BP 184.6 cm??? 67 - 155 / 56 - 104 cm??? LV Systolic Volume MOD BP 93.2 cm??? 22 - 58 / 19 - 49 cm??? LV Ejection Fraction MOD BP 49.5 % >= 55 % LV Cardiac Index MOD BP 3700.1 cm???/min???m??? LV Diastolic Volume MOD 4C 243.7 cm??? LV Systolic Volume MOD 4C 104.5 cm??? LV Ejection Fraction MOD 4C 57.1 % LV Cardiac Index MOD 4C 5638.5 cm???/min???m??? LV Diastolic Length 4C 9.1 cm LV Systolic Length 4C 8.2 cm LV Diastolic Volume MOD 2C 134.9 cm??? LV Systolic Volume MOD 2C 81.0 cm??? LV Ejection Fraction MOD 2C 39.9 % LV Cardiac Index MOD 2C 2181.4 cm???/min???m??? LV Diastolic Length 2C 8.7 cm LV Systolic Length 2C 8.5 cm LA Volume 82.8 cm??? 18 - 58 / 22 - 52 cm??? LA Volume Index 37.7 cm???/m??? 16 - 28 cm???/m??? M-MODE Aortic Root Diameter MM 3.0 cm LA Systolic Diameter MM 5.0 cm LA Ao Ratio MM 1.7 AV Cusp Separation MM 2.4 cm DOPPLER AV Peak Velocity 126.1 cm/s AV Peak Gradient 6.4 mmHg AV Mean Velocity 93.3 cm/s AV Mean Gradient 3.8 mmHg AV Velocity Time Integral 25.9 cm LVOT Peak Velocity 79.9 cm/s LVOT Peak Gradient 2.6 mmHg LVOT Velocity Time Integral 16.7 cm LVOT Stroke Volume 40.4 cm??? LVOT Stroke Volume Index 19.0 ml/m??? LVOT Cardiac Index 1634.3 cm???/min???m??? AV Area Cont Eq vti 1.6 cm??? AV Area Cont Eq pk 1.5 cm??? MV Area PHT 3.9 cm??? Mitral E Point Velocity 75.3 cm/s Mitral A Point Velocity 94.5 cm/s Mitral E to A Ratio 0.8 MV Deceleration Time 195.5 ms MV E' Velocity 4.2 cm/s Mitral E to MV E' Ratio 18.1 FINDINGS Left Ventricle Mildly increased left ventricular wall thickness. [place] hypokinetic. Moderately increased left ventricular diastolic volume. Mildly decreased left ventricular ejection fraction. Left ventricular ejection fraction is estimated at 45-50 %. Right Ventricle Normal right ventricular size and function. Right Atrium Normal right atrial size. Left Atrium Moderately increased left atrial size Mitral Valve Structurally normal mitral valve. Mitral valve thickened. Mild mitral annular calcification. Mild mitral regurgitation. Aortic Valve Trileaflet aortic valve. No aortic stenosis. No aortic regurgitation. Aortic valve sclerosis. Tricuspid Valve Structurally normal tricuspid valve. Mild tricuspid regurgitation. Pulmonic Valve Structurally normal pulmonic valve. Trace pulmonic regurgitation. Pericardium No pericardial effusion. Aorta Normal size aortic root and proximal ascending aorta. CONCLUSIONS Left ventricular ejection fraction is estimated at 45-50 %. [place] hypokinetic. Normal right ventricular size and function. Mild mitral regurgitation. Mild tricuspid regurgitation. Previewed by: Dr Reji Weber (Electronically Signed) Final Date: 14 May 2024 01:56
== END | disposition home or self-care (01) ==
LOC: RADECHMAIN 16:39
PROVIDERS: ATTEND Internal Medicine
DX: I08.1 Rheumatic disorders of both mitral and tricuspid valves (principal)
CPT/HCPCS: 93306

== ENCOUNTER 2024-06-10 15:01 | Emergency (ER) | payer MEDICARE ==
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
[2024-06-10] MEDS: HYDROmorphone 0.5 MG/0.5 ML SYRINGE IM STA (15:36)
[2024-06-10] MEDS: DIPH,PERTUS(ACELL)TETVAC-LF 0.5 ML VIAL IM ONE (15:38)
--- NOTE | 2024-06-10 15:52 | CT ---
EXAMINATION TYPE: CT brain cspine wo con, CT facial bones wo con CT DLP: Combined DLP of 1088.8 mGycm, Automated exposure control for dose reduction was used. DATE OF EXAM: 06/10/2024 3:41 PM COMPARISON: MRI brain 04/11/2024, 01/12/2023, CT brain C-spine 12/24/2022 CLINICAL INDICATION:Male, 79 years old with history of fall, ecchymosis; Fall, ecchymosis. TECHNIQUE: Brain: Multiple axial CT images of the brain were obtained without IV contrast. Cspine: Axial CT images from the skull base to the inferior aspect of T2 we obtained without intraven ous contrast. Coronal and sagittal reformatted images were also reviewed. Facial bones; axial CT images of the facial bones were obtained without contrast and soft tissue and bone windows. Coronal and sagittal reformatted images were also reviewed. FINDINGS: Brain: Extra-axial spaces: No abnormal extra-axial fluid collections. Ventricular system: Dilatation in proportion to cerebral atrophy. Cerebral parenchyma: Cerebral atrophy. No acute intraparenchymal hemorrhage or mass effect. The huffman -white junction is well differentiated. Scattered hypoattenuating areas are seen within the periventr icular white matter. Cerebellum: Unremarkable. Mass effect: No evidence of midline shift. Intracranial vasculature: Atherosclerotic calcifications of the intracranial vessels. Soft tissues: Left periorbital soft tissue hematoma with maximum thickness of 1.1 cm. Calvarium: No depressed skull fracture. Paranasal sinuses and mastoid air cells: The mastoid air cells are clear bilaterally. Mild mucosal th ickening of the bilateral maxillary sinuses. Nasal device identified. Visualized orbits: Bilateral aphakia Cervical spine: Fracture: None. Osseous structures: Multilevel degenerative disc disease changes with endplate spurring and disc oste ophyte complex's. Multilevel facet arthropathy. Vertebral alignment: Within normal limits. Spinal canal/Neural Foramina: Disc osteophyte complexes at C5-C6 and C6-C7 with at least mild spinal canal stenosis. Facet joint uncovertebral joint arthropathy scattered throughout the cervical spine w ith varying degrees of neural foraminal stenosis. Neck soft tissues: Prevertebral soft tissues are within normal limits. Other: The airway is patent. The lung apices are clear. Bilateral carotid bulb complication of the le ft greater than right. Facial Bones: There is no evidence of fracture, subluxation, dislocation. Left periorbital soft tissue hematoma wit h maximum thickness of 1.1 cm. Bilateral aphakia. No acute traumatic process to the globes. The tempo ral-mandibular joints appear symmetric. The mastoid air cells are clear bilaterally. Mild mucosal thi ckening of the bilateral maxillary sinuses. Nasal device identified. IMPRESSION: 1. No acute intracranial process. 2. Nonspecific white matter changes, likely secondary to chronic small vessel ischemic disease. 3. No acute facial bone fracture. 4. Acute left periorbital soft tissue hematoma. 5. No evidence of cervical spine fracture. 6. Mild to moderate multilevel degenerative disc disease. [facility], , 06/10/2024 3:50 PM
--- NOTE | 2024-06-10 17:06 | XR ---
EXAMINATION TYPE: XR hand complete LT DATE OF EXAM: 06/10/2024 4:46 PM COMPARISON: None. CLINICAL INDICATION: Male, 79 years old with history of fall, pain, pain TECHNIQUE: 3 view(s) obtained. FINDINGS: Ring is present on the ring finger. No acute fractures or dislocations evident. Soft tissues appear n ormal. Joint spaces are preserved. Follow up exams can be performed 7-10 days from acute trauma for continued pain. IMPRESSION: 1. No acute osseous abnormality left hand [facility], , 06/10/2024 5:04 PM
--- NOTE | 2024-06-10 17:07 | XR ---
EXAMINATION TYPE: XR Hip LT and AP Pelvis DATE OF EXAM: 06/10/2024 4:46 PM COMPARISON: None. CLINICAL INDICATION: Male, 79 years old with history of fall, pain, pain TECHNIQUE: 2 view(s) obtained left hip supplemented with an AP pelvis. FINDINGS: Femoral heads articulate with the acetabulum. No acute fracture or dislocation evident. Joint spaces are preserved. Symphysis pubis and sacroiliac joints are normal. IMPRESSION: 1. Normal left hip and AP pelvis [facility], , 06/10/2024 5:05 PM
--- NOTE | 2024-06-10 17:08 | XR ---
EXAMINATION TYPE: XR knee complete LT DATE OF EXAM: 06/10/2024 4:46 PM COMPARISON: None. CLINICAL INDICATION: Male, 79 years old with history of fall, ecchymosis, pain, pain TECHNIQUE: 3 view(s) obtained. FINDINGS: There is a left hip prosthesis. No joint effusion is evident. No acute fracture or dislocation eviden t. Superficial soft tissues appear normal. Vascular calcification is noted. Follow up exams can be performed 7-10 days from acute trauma for continued pain. IMPRESSION: 1. No acute osseous abnormality radiographically apparent. [facility], , 06/10/2024 5:06 PM
--- NOTE | 2024-06-10 17:09 | XR ---
EXAMINATION TYPE: XR shoulder complete LT DATE OF EXAM: 06/10/2024 4:46 PM COMPARISON: None. CLINICAL INDICATION: Male, 79 years old with history of fall, ecchymosis, pain, Pain TECHNIQUE: XR shoulder complete LT 3 view(s) obtained. FINDINGS: The humeral head articulates with the glenoid. There is narrowing of the acromial humeral joint space . Some elevation of the humeral head in relation to the glenoid is present. Findings can suggest unde rlying rotator cuff tear. The acromio-clavicular junction is normal. No acute fractures or dislocations are evident. A follow up study can be performed 7-10 days from acute trauma for continued pain. MRI can be perfor med if soft tissue evaluation would be of benefit. IMPRESSION: 1. No acute osseous shoulder abnormality. 2. Left rotator cuff tear suspected. [facility], , 06/10/2024 5:07 PM
[2024-06-10 17:55] VITALS: BP 144/87; PULSE 62; RESP 18; TEMP 98.1
== END 2024-06-10 17:55 | disposition home or self-care (01) ==
LOC: EC 15:01
DX: S00.12XA Contusion of left eyelid and periocular area, initial encounter (principal); S46.012A Strain of muscle(s) and tendon(s) of the rotator cuff of left shoulder, initial encounter; Z88.5 Allergy status to narcotic agent; Z88.8 Allergy status to other drugs, medicaments and biological substances; Z23 Encounter for immunization; Z91.041 Radiographic dye allergy status; W18.31XA Fall on same level due to stepping on an object, initial encounter; Y93.01 Activity, walking, marching and hiking
CPT/HCPCS: 73030; 73502; 73130; 73562; 72125; 70486; 70450; 90715; 99284; 90471; 96372; J1171